=== PATIENT | male | born 1935 | race Caucasian/White ===

== ENCOUNTER 2018-10-09 10:41 | Inpatient (IN) ==
--- NOTE | 2018-10-09 10:52 | Emergency Department Note ---
Disposition Clinical Impression: Elevated troponin, NSTEMI (non-ST elevated myocardial infarction) CHF exacerbation Qualifiers: Heart failure type: unspecified Qualified Code(s): I50.9 - Heart failure, unspecified Pneumonia Qualifiers: Pneumonia type: due to unspecified organism Laterality: unspecified laterality Lung location: unspecified part of lung Qualified Code(s): J18.9 - Pneumonia, unspecified organism Sepsis Qualifiers: Sepsis type: sepsis due to unspecified organism Qualified Code(s): A41.9 - Sepsis, unspecified organism Disposition: Admitted As Inpatient Condition: Fair Time of Disposition: 12:52 SOB HPI - General Chief Complaint: ED Shortness of Breath/Dyspnea Stated Complaint: SOB Time Seen by Provider: 10/09/18 10:50 Source: patient, EMS Mode of arrival: EMS Limitations: no limitations Nursing Notes Reviewed: Yes Vital Signs Reviewed: Yes - History of Present Illness Patient is an 83-year-old male with past medical history of hypertension, hyperlipidemia, previous CAD, possible CHF. Presents today due to concern for hypoxia, cough, shortness of breath that has been present for the past 1-2 days. Patient denies any fever. He does admit to productive sputum that is new. Denies any chest pain. He denies any shortness of breath but he does appear to be mildly labored on exam. Denies any other vomiting, diarrhea, abdominal pain, dysuria, hematuria. He does admit to some mild nausea yesterday but denies any currently. According to the long term, patient does not wear any oxygen, has no history of COPD. However, he had oxygen saturations in upper 80s on room air. Patient is currently requiring 2-3 L nasal cannula oxygen to keep his saturations up. He has noticed some increased swelling of his lower extremities, possible concern for CHF exacerbation. - Related Data Home Medications Medication Instructions Recorded Confirmed Aspirin Enteric Coated [Aspirin EC] 325 mg PO DAILY 09/16/18 09/16/18 Atenolol [Tenormin] 12.5 mg PO DAILY 09/16/18 09/16/18 Atorvastatin [Lipitor] 40 mg PO HS 09/16/18 09/16/18 Glimepiride [Amaryl] 4 mg PO 0800 09/16/18 09/16/18 Levothyroxine [Synthroid] 50 mcg PO 0630 09/16/18 09/16/18 Meclizine [Antivert] 25 mg PO TID PRN 09/16/18 09/16/18 Oxybutynin Chloride [Ditropan Xl] 10 mg PO DAILY 09/16/18 09/16/18 Previous Rx's Medication Instructions Recorded Furosemide [Lasix] 20 mg PO BIDDIURETIC 30 Days #60 09/21/18 tablet Allergies Allergy/AdvReac Type Severity Reaction Status Date / Time metronidazole [From Flagyl] Allergy Anaphylaxis Verified 07/28/15 15:18 All systems ED: reviewed and negative except as stated. Constitutional: Denies: fever Cardiovascular: Denies: chest pain Respiratory: Reports: cough, dyspnea, sputum production. Denies: wheezes Gastrointestinal: Reports: nausea. Denies: abdominal pain, vomiting, diarrhea Neurological: Denies: weakness, numbness, paresthesias Past Medical History - Past Medical History Attestation: Yes The following information was validated with the patient. Source: patient Medical history: Reports: coronary artery disease, CVA, diabetes, hyperlipidemia, hypertension Surgical history: Reports: coronary bypass (CABG) Psychiatric history: Reports: no psych history - Social History Smoking Status: Never smoker Smokeless Tobacco Status: No Alcohol use: Reports: none Drug use: Reports: none Physical Exam - General Limitations: no limitations General appearance: alert - Head Head exam: atraumatic, normocephalic, normal inspection - Eye Eye exam: Present: normal appearance, PERRL, EOMI - ENT ENT exam: normal exam, normal oropharynx, mucous membranes moist - Neck Neck exam: Present: normal inspection, full ROM, trachea midline - Chest Chest inspection: Present: normal inspection, symmetric chest wall rise - Respiratory Respiratory exam: Present: other (mild to moderate crackles bilateral LL; mildly labored breathing, active cough on exam) - Cardiovascular Cardiovascular exam: Present: regular rate, normal rhythm, normal heart sounds - Abdominal Exam Abdominal exam: Present: soft, Non-Tender. Absent: tenderness, distention, guarding, rebound, rigidity - Extremities Exam Extremities exam: Present: full ROM, pedal edema (mdoerate pitting edema bilateral LE). Absent: tenderness - Neurological Exam Neurological exam: Present: alert, oriented X3. Absent: motor sensory deficit - Psychiatric Psychiatric exam: Present: normal affect, normal mood - Skin Skin exam: Present: warm, dry, intact, normal color Course Course Narrative: Physical exam shows pitting edema bilateral lower extremity is along with crackles of bilateral lower lobes. Currently concern for possible CHF exacerbation. We will obtain basic blood work, troponin, chest x-ray. If evidence of fluid overload, we will give the patient Lasix. 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 He currently denies any chest pain, denies any shortness of breath but does appear to be mildly labored. Will run this EKG by the prototype deicer assembler. ( 11:13 Cardiolgist re-paged 11:[address] King, discussed presentation, clinical findings, vitals. 11:26. Dr. King has reviewed the EKG and believes that the elevation is part of the QRS and not ST segment. He believes that this is related to the bundle branch block formation. No STEMI seen at this time. We will proceed with the above workup. 11:43 Elevated WBC, lact 2.9. CXR shows evidence of mild pulmonary edema. On personal review, it appears that patient might also have bibasilar opacity concerning for possible pneumonia. Patient has been complaining of cough and productive sputum. We will go ahead and cover with galileo miranda levaquin since he is from long term and also meets SIRS/sepsis criteria. Patient will not be given sepsis fluids bolus due to him being fluid overloaded currently and requiring Lasix. 12:41 patient had an elevated troponin level around 6. I spoke with cardiologi again. We discussed EKG findings again. On repeat examination, patient continues to deny any chest pain, shortness of breath. Dr. King recommended medical therapy with aspirin and heparin. I went over contra indications with patient. He denies any blood in his urine, GI bleeding, any previous history of any head bleeds. He is agreeable to starting heparin at this time. He does have a known small aneurysm but states that he has never had any, medications or intracranial bleeding and is still comfortable with starting heparin at this time. We will admit to the hospitalist for further care with cardiology as a consult. Chest X-Ray 10/09/18 10:51 IMPRESSION: 1. Mild congestive heart failure. Findings are new since 09/17/2018. D/ / 10/09/2018 11:41:24 Indy Shaffer MD / ed Interpreting Provider: Indy Shaffer MD Vital Signs Temperature 99.6 F 10/09/18 10:52 Pulse Rate 90 10/09/18 10:52 Respiratory Rate 22 10/09/18 10:52 Blood Pressure 140/74 10/09/18 10:52 O2 Sat by Pulse Oximetry 96 10/09/18 10:52 Temperature 99.6 F 10/09/18 10:52 Pulse Rate 90 10/09/18 10:52 Respiratory Rate 22 10/09/18 10:52 Blood Pressure 140/74 10/09/18 10:52 O2 Sat by Pulse Oximetry 95 10/09/18 11:00 Oxygen Delivery Oxygen Delivery Nasal Cannula Shortness of Breath/Dyspnea - MDM Narrative Medical decision making narrative: Physical exam shows pitting edema bilateral lower extremity is along with crackles of bilateral lower lobes. Currently concern for possible CHF exacerbation. We will obtain basic blood work, troponin, chest x-ray. If evidence of fluid overload, we will give the patient Lasix. 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 He currently denies any chest pain, denies any shortness of breath but does appear to be mildly labored. Will run this EKG by the prototype deicer assembler. ( 11:13 Cardiolgist re-paged 11:[address] King, discussed presentation, clinical findings, vitals. 11:26. Dr. King has reviewed the EKG and believes that the elevation is part of the QRS and not ST segment. He believes that this is related to the bundle branch block formation. No STEMI seen at this time. We will proceed with the above workup. 11:43 Elevated WBC, lact 2.9. CXR shows evidence of mild pulmonary edema. On personal review, it appears that patient might also have bibasilar opacity melina rning for possible pneumonia. Patient has been complaining of cough and productive sputum. We will go ahead and cover with vanc, zosyn, levaquin since he is from long term and also meets SIRS/sepsis criteria. Patient will not be given sepsis fluids bolus due to him being fluid overloaded currently and requiring Lasix. 12:41 patient had an elevated troponin level around 6. I spoke with car diologist again. We discussed EKG findings again. On repeat examination, patient continues to deny any chest pain, shortness of breath. Dr. King recommended medical therapy with aspirin and heparin. I went over contra indications with patient. He denies any blood in his urine, GI bleeding, any previous history of any head bleeds. He is agreeable to starting heparin at this time. He does have a known small aneurysm but states that he has never had any, medications or intracranial bleeding and is still comfortable with starting heparin at this time. We will admit to the hospitalist for further care with cardiology as a consult. - Medical Records Medical records reviewed: Yes I reviewed the patient's medical records. - Lab Data Lab results reviewed: Yes I reviewed the patient's lab results. Result diagrams: 10/09/18 11:09 10/09/18 11:09 Lab Results 10/09/18 10/09/18 10/09/18 Range/Units 11:09 11:09 11:09 WBC 18.9 H (4.3-11.1) K/mcL RBC 3.77 L (4.19-5.50) M/mcL Hgb 12.2 L (12.9-16.9) g/dL Hct 35.5 L (37.5-50.1) % MCV 94.2 (83.0-100.0) fL MCH 32.4 (28.0-33.3) pg MCHC 34.4 (31.6-35.5) g/dL RDW 13.9 (11.5-14.5) % Plt Count 256 (140-400) K/mcL MPV 9.3 L (9.4-12.4) fL Immature Gran % 0.8 (0-4) % Seg Neutrophils % 86.4 % Lymphocytes % 6.6 % Monocytes % 5.9 % Eosinophils % 0.1 % Basophils % 0.2 % Neutrophils # 16.3 H (1.6-8.9) K/mcL Lymphocytes # 1.3 (0.6-4.6) K/mcL Monocytes # 1.1 (0.0-1.3) K/mcL Eosinophils # 0.0 (0.0-0.6) K/mcL Basophils # 0.0 (0.0-0.2) K/mcL Nucleated RBCs/100 WBC 0.1 H (0) /100 WBC Sodium 129 L (136-145) mEq/L Potassium 3.7 (3.5-5.1) mEq/L Chloride 93 L (98-107) mEq/L Carbon Dioxide 26 (23-29) mEq/L BUN 20 (8-23) mg/dL Creatinine 1.04 (0.70-1.30) mg/dL Est GFR ( Amer) > 60 (> 60) Est GFR (Non-Af Amer) > 60 (> 60) BUN/Creatinine Ratio 19 (6-26) Glucose 178 H (70-105) mg/dL Calculated Osmolality 275 L (280-300) Lactic Acid 2.9 H (0.5-2.2) mmol/L Calcium 8.8 (8.6-10.3) mg/dL Troponin I 6.24 H* (< 0.04) ng/mL B-Natriuretic Peptide (Less than 100) pg/mL 10/09/18 10/09/18 Range/Units 11:09 12:24 WBC (4.3-11.1) K/mcL RBC (4.19-5.50) M/mcL Hgb (12.9-16.9) g/dL Hct (37.5-50.1) % MCV (83.0-100.0) fL MCH (28.0-33.3) pg MCHC (31.6-35.5) g/dL RDW (11.5-14.5) % Plt Count (140-400) K/mcL MPV (9.4-12.4) fL Immature Gran % (0-4) % Seg Neutrophils % % Lymphocytes % % Monocytes % % Eosinophils % % Basophils % % Neutrophils # (1.6-8.9) K/mcL Lymphocytes # (0.6-4.6) K/mcL Monocytes # (0.0-1.3) K/mcL Eosinophils # (0.0-0.6) K/mcL Basophils # (0.0-0.2) K/mcL Nucleated RBCs/100 WBC (0) /100 WBC Sodium (136-145) mEq/L Potassium (3.5-5.1) mEq/L Chloride (98-107) mEq/L Carbon Dioxide (23-29) mEq/L BUN (8-23) mg/dL Creatinine (0.70-1.30) mg/dL Est GFR ( Amer) (> 60) Est GFR (Non-Af Amer) (> 60) BUN/Creatinine Ratio (6-26) Glucose (70-105) mg/dL Calculated Osmolality (280-300) Lactic Acid 2.8 H (0.5-2.2) mmol/L Calcium (8.6-10.3) mg/dL Troponin I (< 0.04) ng/mL B-Natriuretic Peptide 152 H (Less than 100) pg/mL - Radiology Data Radiology results reviewed: Yes I reviewed the patient's radiology results. - EKG Data EKG attestation: Yes I reviewed and interpreted this EKG. EKG results narrative: Sinus rhythm. Rate 89. CA 139. QRS 164. QTC 469. Normal axis. 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 Critical Care Time Critical Care Time: Yes Total Critical Care Time: 35 Attestation: Critical care time 35 minutes managing CHF, and elevated troponin, and possible institutionally acquired pneumonia. S.B.A.R. - S.B.A.RAlice Situation: Demographics, MOA Background: Presenting Complaint, Relevant PMH, Meds, & Allergies Assessment: Vital Signs, Course and respsone to treatment, Exam Concerns, Patient/Family Expectation, Pertinant Lab Results Recommendation: Barrier(s) to disposition, Recommendation based on pending studies, treatments, or consults S.B.A.RAlice Report Given to: Dr. Jackie Briseno Repor Time: 12:52 Attestation Statement - Attestation Attestation: Patient was seen with resident physician. I reviewed the history, physical, assessment and plan, and agree with the findings. I also personally evaluated this patient and had [id number] time with this patient. 83-year-old male presents from long term via EMS to the emergency department with shortness of breath and increased confusion. Patient says he feels okay today he sat had shortness of breath in the past but has no chest pain or shortness of breath today. residential however found a pulse ox that was below 90 on room air. And also said he was more confused than usual which prompted his transport. Patient denies other complaints at this time. Review systems as above remainder negative. Physical exam vital signs were stable. ENT is unremarkable. Heart regular rhythm and rate. Lungs are clear. Abdomen is soft and nontender. Extremities swelling of the lower extremities bilaterally and symmetrically. He has 2+ edema. Neurologically he follows commands and is otherwise alert. His difficult to understand his speech as he has no teeth. Skin no rashes. Psych normal from what we can ascertain. ED course. We will do workup for cardiopulmonary causes of shortness of breath. I think this is likely a CHF issue. But we will also exclude pneumonia and influenza. Patient does appear to be fluid overloaded. We will likely treat that as well. Disposition will be admission to the hospital service for further evaluation and treatment. Multiple abnormalities were noted during the workup. Including some EKG changes that were seen on his EKG when compared with prior. These were discussed with interventional cardiology. Additionally once a troponin came back positive we recontacted cardiology to ensure that there is no further intervention they wanted other than heparin and aspirin. Patient was started on both of these per their continued recommendation and we contacted the hospitalist service to arrange for admission. They agreed to accept the patient. I agree with the resident physician assessment and plan. Critical care time 35 minutes managing patient's multiple medical problems including CHF probable pneumonia and an NSTEMI.
[2018-10-09 11:23] LABS: Basophils % 0.2 %; Eosinophils % 0.1 %; Hematocrit 35.5 % (37.5-50.1); Hemoglobin 12.2 g/dL (12.9-16.9); Immature Granulocytes % 0.8 % (0-4); Lymphocytes # 1.3 K/mcL (0.6-4.6); Lymphocytes % 6.6 %; Mean Corpuscular HGB Conc 34.4 g/dL (31.6-35.5); Mean Corpuscular Hemoglobin 32.4 pg (28.0-33.3); Mean Corpuscular Volume 94.2 fL (83.0-100.0); Mean Platelet Volume 9.3 fL (9.4-12.4); Monocytes # 1.1 K/mcL (0.0-1.3); Monocytes % 5.9 %; Neutrophils # 16.3 K/mcL (1.6-8.9); Nucleated Red Blood Cells 0.1 /100 WBC (0); Platelet Count 256 K/mcL (140-400); Red Blood Count 3.77 M/mcL (4.19-5.50); Red Cell Distribution Width 13.9 % (11.5-14.5); Segmented Neutrophils % 86.4 %
[2018-10-09 11:45] LABS: BUN/Creatinine Ratio 19 (6-26); Blood Urea Nitrogen 20 mg/dL (8-23); Calcium 8.8 mg/dL (8.6-10.3); Carbon Dioxide 26 mEq/L (23-29); Chloride 93 mEq/L (98-107); Glucose 178 mg/dL (70-105); Osmolality,Calculated 275 (280-300); Potassium 3.7 mEq/L (3.5-5.1); Sodium 129 mEq/L (136-145); eGFR For Non-African Americans > 60 (> 60)
[2018-10-09] MEDS ORDERED: Furosemide 40 MG/4 ML VIAL IVP ONE (11:46)
[2018-10-09] MEDS ORDERED: Piperacillin/Tazobactam 3.375 GM in 0.9 % Sodium Chloride Mini Bag 100 ML IVPB ONE (11:46)
[2018-10-09] MEDS ORDERED: Levofloxacin 500 MG/100 ML 500 MG/100 ML BAG IVPB ONE (11:46)
[2018-10-09 11:55] LABS: Troponin I 6.24 ng/mL (< 0.04)
[2018-10-09] MEDS ORDERED: *HR* Heparin 5,000 UNIT/ML VIAL IVP ONE (12:32)
[2018-10-09] MEDS ORDERED: *HR* Heparin 5,000 UNIT/ML VIAL IVP PRN ×2 (12:32)
[2018-10-09] MEDS ORDERED: Aspirin 325 MG TABLET PO ONE (12:50)
[2018-10-09] MEDS: Heparin 25,000 UNIT/250 ML D5W 25,000 UNIT/250 ML IV.SOLN IVC SCH (12:58)
[2018-10-09 13:32] LABS: Hematocrit 34.8 % (37.5-50.1); Mean Corpuscular HGB Conc 34.5 g/dL (31.6-35.5); Mean Corpuscular Hemoglobin 32.5 pg (28.0-33.3); Mean Corpuscular Volume 94.3 fL (83.0-100.0); Mean Platelet Volume 9.5 fL (9.4-12.4); Platelet Count 257 K/mcL (140-400); Red Blood Count 3.69 M/mcL (4.19-5.50); Red Cell Distribution Width 13.8 % (11.5-14.5)
[2018-10-09 13:40] LABS: INR 1.4; Prothrombin Time 16.3 Seconds (9.4-12.1)
[2018-10-09] MEDS ORDERED: Naloxone 0.4 MG/ML INJ IVP PRN (14:36)
[2018-10-09] MEDS ORDERED: D5% in Water 1,000 ML IVC PRN (14:40)
[2018-10-09] MEDS ORDERED: *HR* Dextrose 50 % in Water (Syg) 50 ML SYRINGE IVP PRN (14:40)
[2018-10-09] MEDS ORDERED: Dextrose Gel 15 GM/37.5 ML TUBE PO PRN ×2 (14:40)
[2018-10-09] MEDS ORDERED: Ipratropium/Albuterol Neb 3 ML IH PRN (14:43)
--- NOTE | 2018-10-09 14:52 | Internal Med History&Physical ---
Date of Encounter: 10/09/18 Time of Encounter: 13:30 Internal Medicine - H&P: HPI Chief complaint: Weakness Admitted From: Long-term Nursing Facility Plans for Post Hospital Care: Transfer [facility] History of present illness: Mr. Douglas is a 83 year old male presented to ER for weakness. Past medical history is significant for DM, hypertension, CAD S/P CABG, history of CVA, hypothyroidism, diastolic CHF, prostate cancer, melanoma. Patient [facility]. Patient feels weak in last several days and fell twice in 3 days ago and today. Patient denies loss of consciousness or head trauma. Patient feels sick in last several days with nonproductive cough and chills and subjective fever. Patient denies runny nose, sore throat, nausea, vomiting, or diarrhea. Patient has mild dysuria and burning on urination. In the emergency room, patient was found hypoxia, need 3 L oxygen to maintain oxygen saturation. Patient denies chest pain or shortness of breath. Chest x-ray shows increased pulmonary edema. Patient was also found elevated troponin to 6.0 with leukocytosis. Patient was admitted for possible pneumonia, CHF exacerbation, and elevated troponin. Past Med Surg Social Fam HX - Past Medical History Medical history: coronary artery disease, CVA, diabetes, hyperlipidemia, hypertension Additional medical history: prostate cancer w/ radiation, melanoma, retina surg viktoriya, CABG x3, strokes x2 Psychiatric history: no psych history - Past Surgical History Surgical History: coronary bypass (CABG) Additional surgical history: triple bypass, prostate cancer, 2 melenomas taken off back, 4 eye eye procedures, hernia repair, bladder surgery - Social History Smoking Status: Never smoker Smokeless Tobacco Status: No Alcohol use: none Drug use: none - Family History Mother Living Status: Hx Family Cardiac Disorders: Yes Father Living Status: Hx Family Cardiac Disorders: Yes Internal Medicine - H&P: Meds Aspirin Enteric Coated [Aspirin EC] 325 mg PO DAILY 09/16/18 [History] Atenolol [Tenormin] 12.5 mg PO DAILY 09/16/18 [History] Glimepiride [Amaryl] 4 mg PO 0800 09/16/18 [History] Levothyroxine [Synthroid] 50 mcg PO 0630 09/16/18 [History] Meclizine [Antivert] 25 mg PO TID PRN 09/16/18 [History] Oxybutynin Chloride [Ditropan Xl] 10 mg PO DAILY 09/16/18 [History] Furosemide [Lasix] 20 mg PO BIDDIURETIC 30 Days #60 tablet 09/21/18 [Rx] Meloxicam 15 mg PO DAILY 10/09/18 [History] Rosuvastatin [Crestor] 20 mg PO HS 10/09/18 [History] 3 Allergy/AdvReac Type Severity Reaction Status Date / Time metronidazole [From Flagyl] Allergy Anaphylaxis Verified 07/28/15 15:18 All Systems PM: A 10-system review of systems was performed and is negative for pertinent findings except as documented above in the HPI. - Constitutional Vitals: Temp Pulse Resp BP Pulse Ox 99.6 F 90 22 140/74 95 10/09/18 10:52 10/09/18 10:52 10/09/18 10:52 10/09/18 10:52 10/09/18 11:00 Exam: Pt is AAO x 3, in NAD HEENT: NC/AT, PERRL Neck: Supple, no JVD, no LAD Lungs: Coarse breath sound bilaterally, with wheezing/rhonchi on bilateral lung base Heart: S1S2, RRR Abd: Soft, nontender, BS present Ext: ROM wnl, no pedal edema Neuro: No focal deficit Internal Med - H&P Results - Labs CBC & Chem 7: 10/09/18 13:08 10/09/18 11:09 Labs: Short CBC 10/09/18 10/09/18 Range/Units 11:09 13:08 WBC 18.9 H 17.9 H (4.3-11.1) K/mcL Hgb 12.2 L 12.0 L (12.9-16.9) g/dL Hct 35.5 L 34.8 L (37.5-50.1) % Plt Count 256 257 (140-400) K/mcL Neutrophils # 16.3 H (1.6-8.9) K/mcL BMP 10/09/18 11:09 Sodium 129 L Potassium 3.7 Chloride 93 L Carbon Dioxide 26 BUN 20 Creatinine 1.04 Glucose 178 H Calcium 8.8 Cardiac Enzymes 10/09/18 Range/Units 11:09 Troponin I 6.24 H* (< 0.04) ng/mL - Impressions ITS Impressions Chest X-Ray 10/09/18 10:51 IMPRESSION: 1. Mild congestive heart failure. Findings are new since 09/17/2018. D/ / 10/09/2018 11:41:24 Indy Shaffer MD / ed Interpreting Provider: Indy Shaffer MD - Assessment and Plan (1) Congestive heart failure Current Visit: No Status: Acute Assessment and plan: Patient has a history of diastolic CHF on by mouth Lasix. Patient has increased oxygen demand and chest x-ray shows increased pulmonary edema. BNP 152. - Consider mild fluid overload on diastolic CHF. Will place patient on strict I and O, cardiac diet, Lasix switched to IV 40 mg daily. - Closer follow-up fluid status Qualifiers: Heart failure type: diastolic Heart failure chronicity: acute on chronic Qualified Code(s): I50.33 - Acute on chronic diastolic (congestive) heart failure (2) Elevated troponin level Current Visit: Yes Status: Acute Assessment and plan: Troponin 6.24, etiology is undetermined. Patient has a history of CAD S/P CABG. - EKG has been reviewed by cardiology, not consider STEMI - Patient denies chest pain or shortness of breath - Continue heparin drip at this point - Continue aspirin, beta gonzales, and statin. - Continuous Cardiac monitoring, track 3 sets of troponin - Cardiology consul was called by emergency room (3) DVT prophylaxis Current Visit: No Status: Acute Assessment and plan: On heparin drip (4) Hypertension Current Visit: No Status: Chronic Assessment and plan: Continue home medications. Closely monitor BP Qualifiers: Hypertension type: essential hypertension Qualified Code(s): I10 - Essential (primary) hypertension (5) Diabetes mellitus Current Visit: No Status: Chronic Assessment and plan: Patient is not on insulin at home. 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 Chest Xray shows increased opacity. Suspect early pneumonia or CHF exacerbation. - Continue treat underlying disease - Continue supportive treatment with oxygen, continuous pulse oximetry monitoring (7) Pneumonia Current Visit: Yes Status: Acute Assessment and plan: Patient has increased cough, subjective fever, leukocytosis, increased opacity on chest x-ray. Patient has generalized weakness. Highly suspect pneumonia. - Place patient on Vanco, Zosyn, azithromycin for HCAP - Legionella and Strep Pneumo Ags - Respiratory viral panel to rule out viral infection - MRSA screen for antibiotic de-escalation - Patient has no wheezing, will place him on bronchodilator scheduled and when necessary. Qualifiers: Pneumonia type: due to unspecified organism Laterality: bilateral Lung location: lower lobe of lung Qualified Code(s): J18.1 - Lobar pneumonia, unspecified organism (8) Sepsis Current Visit: Yes Status: Acute Assessment and plan: Patient to meet sepsis criteria with leukocytosis and hypoxia - Antibiotics started in the emergency room. - No IV fluid as patient has signs of fluid overload. - Mild elevated lactate is also possibly due to hypoxia. We will follow lactate acid level in 6 hours - Follow up blood culture, send UA to rule out UTI. Qualifiers: Sepsis type: sepsis due to unspecified organism Qualified Code(s): A41.9 - Sepsis, unspecified organism - Time Spent With Patient Total time spent is greater than 50% in coordination of care (as documented) at patient's floor/unit and/or counseling patient: 40 minutes Greater than 35 minutes
[2018-10-09 15:32] LABS: Bilirubin,Urine Negative (Negative); Blood,Urine Negative (Negative); Clarity,Urine Clear (Clear); Color,Urine Yellow (Yellow); Glucose,Urine (UA) Normal (Normal); Ketones,Urine Negative (Negative); Leukocyte Esterase,Urine Negative (Negative); Nitrite,Urine Negative (Negative); Protein,Urine Trace mg/dL (Neg-Trace); Specific Gravity,Urine 1.011 (1.010-1.025); Urobilinogen,Urine Normal (Normal)
[2018-10-09] MEDS: Ipratropium/Albuterol Neb 3 ML IH SCH ×2 (15:55→21:27)
[2018-10-09] MEDS: Piperacillin/Tazobactam 3.375 GM in 0.9 % Sodium Chloride Mini Bag 100 ML IVPB SCH ×2 (16:20→23:53)
[2018-10-09] MEDS: Insulin LISPRO 300 UNITS/3 ML VIAL SQ SCH ×2 (16:26→22:12)
[2018-10-09 18:15] LABS: Adenovirus Not Detected (Not Detect); Bordetella Pertussis Not Detected (Not Detect); Chlamydophila pneumoniae Not Detected (Not Detect); Coronavirus 229E Not Detected (Not Detect); Coronavirus HKU1 Not Detected (Not Detect); Coronavirus NL63 Not Detected (Not Detect); Coronavirus OC43 Not Detected (Not Detect); Human Metapneumovirus Not Detected (Not Detect); Human Rhinovirus/Enterovirus Not Detected (Not Detect); Influenza A Subtype 2009 H1 Not Detected (Not Detect); Influenza A Untypeable Not Detected (Not Detect); Influenza B Not Detected (Not Detect); Mycoplasma pneumoniae Not Detected (Not Detect); Parainfluenza Virus 1 Not Detected (Not Detect); Parainfluenza Virus 2 Not Detected (Not Detect); Parainfluenza Virus 3 Not Detected (Not Detect); Parainfluenza Virus 4 Not Detected (Not Detect); Respiratory Syncytial Virus Not Detected (Not Detect)
[2018-10-10] MEDS: Ipratropium/Albuterol Neb 3 ML IH SCH ×4 (03:44→22:53)
[2018-10-10 04:19] LABS: Basophils % 0.2 %; Eosinophils # 0.2 K/mcL (0.0-0.6); Eosinophils % 1.1 %; Hematocrit 33.1 % (37.5-50.1); Hemoglobin 12.1 g/dL (12.9-16.9); Immature Granulocytes % 0.8 % (0-4); Lymphocytes # 1.3 K/mcL (0.6-4.6); Lymphocytes % 8.1 %; Mean Corpuscular HGB Conc 36.6 g/dL (31.6-35.5); Mean Corpuscular Hemoglobin 33.8 pg (28.0-33.3); Mean Corpuscular Volume 92.5 fL (83.0-100.0); Mean Platelet Volume 9.6 fL (9.4-12.4); Monocytes # 0.6 K/mcL (0.0-1.3); Monocytes % 3.6 %; Neutrophils # 13.7 K/mcL (1.6-8.9); Platelet Count 264 K/mcL (140-400); Red Blood Count 3.58 M/mcL (4.19-5.50); Red Cell Distribution Width 14.2 % (11.5-14.5); Segmented Neutrophils % 86.2 %
[2018-10-10 04:36] LABS: BUN/Creatinine Ratio 20 (6-26); Blood Urea Nitrogen 21 mg/dL (8-23); Calcium 8.4 mg/dL (8.6-10.3); Carbon Dioxide 26 mEq/L (23-29); Chloride 93 mEq/L (98-107); Glucose 233 mg/dL (70-105); Magnesium 1.7 mg/dL (1.6-2.6); Osmolality,Calculated 278 (280-300); Potassium 3.4 mEq/L (3.5-5.1); Sodium 129 mEq/L (136-145); eGFR For Non-African Americans > 60 (> 60)
[2018-10-10] MEDS: Heparin 25,000 UNIT/250 ML D5W 25,000 UNIT/250 ML IV.SOLN IVC SCH (04:55)
--- NOTE | 2018-10-10 08:01 | Cardiology Consult Note ---
<Juan Pablo Murray R - Last Filed: 10/10/18 08:02> Date of Encounter: 10/10/18 Time of Encounter: 08:01 Assessment and Plan (1) NSTEMI (non-ST elevated myocardial infarction) Current Visit: Yes Status: Acute Pt presented for weakness/falls, feeling ill--chills, subjective fevers. Troponins 6.24, 11.51, 7.01, downtrending. He denies chest pain or dyspnea. ECG reviewed--known RBBB, ST changes in anterolateral leads are more pronounced compared to previous. TTE 09/07/18 LVEF 65%. Normal RV structure and function. Moderately thickened aortic valve leaflets. No by Doppler. Mild MR and TR. Mild phtn. Hx of CAD and CABG in 2007. Recommended [facility] given NSTEMI. R/B/A discussed. Pt declines. He wishes to pursue medical management only. Continue heparin gtt x 24-48 hours. Continue ASA, Statin, BB. Will add Plavix 75mg daily. Repeat TTE. Continue to follow. Recommend palliative consult to discuss code status change since pt does not want to be aggressive. (2) Diastolic CHF Current Visit: Yes Status: Acute Hx of diastolic CHF. Pt denies worsening dyspnea, although he was found to be hypoxic in ED. TTE 08/2018 EF 65%. BNP 152. CXR mild CHF. Mild BLE edema on exam. On IV Lasix 40mg daily. Recommend strict I/Os, Na and fluid restriction, daily weights. Qualifiers: Heart failure chronicity: chronic Qualified Code(s): I50.32 - Chronic diastolic (congestive) heart failure (3) CAD (coronary artery disease) Current Visit: No Status: Chronic Hx of CABG. Continue ASA, Statin, BB. Qualifiers: Coronary Disease-Associated Artery/Lesion type: bypass graft [place] vs. transplanted heart: [place] heart Associated angina: without angina Qualified Code(s): I25.810 - Atherosclerosis of coronary artery bypass graft(s) without angina pectoris Discussion w patient/family: The assessment and plan as outlined above was discussed with the patient and/or family members who expressed understanding and agreement. All questions were answered. Thank you for involving us in the care of your patient. Please call with any questions. I will discuss all the above with Dr. Palencia and make changes as necessary. History of Present Illness Consult date: 10/10/18 Consult reason: NSTEMI Chief complaint: weakness/falls History of present illness: Mr. Douglas is a 83 year old male with a relevant past medical history of CAD s/p CABG, HTN, HLD, CVA, PVD, prostate cancer, hypothyroidism, diastolic CHF, who presented to [facility] with complaints of weakness in last several days and two falls. Patient denies loss of consciousness or head trauma. Patient feels ill with nonproductive cough and chills and subjective fever. In the emergency room, patient was found to be hypoxic, requiring 3 L oxygen to maintain saturation. Patient denies chest pain or shortness of breath. Chest x-ray shows increased pu lmonary edema. Troponins 6.24, 11.51, 7.01. Cardiology consulted for further recs. Prior CV testing: TTE 09/07/18: LVEF 65%. Indeterminate diastolic function. Normal RV structure and function. Moderately thickened aortic valve leaflets. No by Doppler. Mild MR and TR. Mild phtn. Past Med Surg Social Fam HX - Past Medical History Medical history: coronary artery disease, CVA, diabetes, hyperlipidemia, hypertension Additional medical history: prostate cancer w/ radiation, melanoma, retina surgery, CABG x3, strokes x2 Psychiatric history: no psych history - Past Surgical History Surgical History: coronary bypass (CABG) Additional surgical history: triple bypass, prostate cancer, 2 melenomas taken off back, 4 eye eye procedures, hernia repair, bladder surgery - Social History Smoking Status: Never smoker Smokeless Tobacco Status: No Alcohol use: none Drug use: none - Family History Mother Living Status: Hx Family Cardiac Disorders: Yes Father Living Status: Hx Family Cardiac Disorders: Yes Medications and Allergies Aspirin Enteric Coated [Aspirin EC] 325 mg PO DAILY 09/16/18 [History] Atenolol [Tenormin] 12.5 mg PO DAILY 09/16/18 [History] Glimepiride [Amaryl] 4 mg PO 0800 09/16/18 [History] Levothyroxine [Synthroid] 50 mcg PO 0630 09/16/18 [History] Meclizine [Antivert] 25 mg PO TID PRN 09/16/18 [History] Oxybutynin Chloride [Ditropan Xl] 10 mg PO DAILY 09/16/18 [History] Furosemide [Lasix] 20 mg PO BIDDIURETIC 30 Days #60 tablet 09/21/18 [Rx] Meloxicam 15 mg PO DAILY 10/09/18 [History] Rosuvastatin [Crestor] 20 mg PO HS 10/09/18 [History] Allergy/AdvReac Type Severity Reaction Status Date / Time metronidazole [From Flagyl] Allergy Anaphylaxis Verified 07/28/15 15:18 All Systems Review: The remainder of the systems were reviewed and are negative - Constitutional Constitutional: chills, fever(s), frequent falls, weakness - Cardiovascular Cardiovascular: as per HPI - Respiratory Respiratory: cough Physical Examination Vital Signs, Last 4 Hours Temp Pulse Resp BP Pulse Ox 10/10/18 06:45 99.9 F H 104 20 121/80 97 Vital Signs Temp Pulse Resp BP Pulse Ox 10/10/18 06:45 99.9 F H 104 20 121/80 97 10/10/18 03:45 14 96 10/10/18 03:30 97.9 F 98 20 126/69 95 10/09/18 23:32 99.6 F 98 24 149/47 95 10/09/18 21:32 14 97 10/09/18 20:30 97 10/09/18 19:34 98.7 F 85 20 130/81 94 10/09/18 16:36 93 10/09/18 16:32 93 10/09/18 16:25 98.8 F 85 18 119/67 94 10/09/18 14:48 20 118/65 10/09/18 11:00 95 10/09/18 10:52 99.6 F 90 22 140/74 96 Intake and Output 10/09/18 10/10/18 10/10/18 23:59 07:59 15:59 Intake Total 434 / 434 250 / 250 Output Total 200 / 200 250 / 250 Balance 234 / 234 0 / 0 Intake: IV Fluids 434 / 434 250 / 250 Heparin 25,000 UNIT/250 ML D5W 250 / 250 25,000 unit In 250 ml @ 14 UNIT /KG/HR 15.582 mls/hr IVC . Q16H3M [facility] Rx#:[id number] Zosyn 3.375 GM In 0.9 % Sodium 100 / 100 Chloride (Mini-Bag +) 100 ML @ 25 mls/hr IVPB Q8HR [facility] Rx#: [id number] Vancocin 1,750 MG In 0.9 % 334 / 334 Sodium Chloride 500 ML @ 334. 014 mls/hr IVPB Q12H [facility] Rx#: [id number] Output: Urine 200 / 200 250 / 250 Other: Stool Size Smear Stool Color Brown # Voids 1 # Urine Diapers 1 Weight 107.1 kg Blood Glucose* 169 235 Patient Weight 10/10/18 23:59 Weight 107.1 kg General: Conversant, No Apparent Distress HEENT: Atraumatic, Normocephaly, Mucus Membranes Moist Neck: No JVD, Normal carotid pulses Cardiac: Reg Rate and Rhythm, Normal S1 and S2, No Murmur Lungs: Other (diminished) Neuro: Alert and responsive, No focal deficits noted Abdomen: Soft, Non-Tender Skin: No rashes noted on visualized skin Musculoskeletal: No Chest Wall Tenderness Extremities: Other (mild BLE edema) Results 10/10/18 04:06 10/10/18 04:06 Lab Results 10/09/18 10/09/18 10/09/18 11:09 11:09 11:09 WBC 18.9 H Hgb 12.2 L Hct 35.5 L Plt Count 256 INR Sodium 129 L Potassium 3.7 Chloride 93 L Carbon Dioxide 26 BUN 20 Creatinine 1.04 Glucose 178 H Calcium 8.8 Magnesium Troponin I 6.24 H* B-Natriuretic Peptide 152 H 10/09/18 10/09/18 10/09/18 13:08 13:08 16:56 WBC 17.9 H Hgb 12.0 L Hct 34.8 L Plt Count 257 INR 1.4 Sodium Potassium Chloride Carbon Dioxide BUN Creatinine Glucose Calcium Magnesium Troponin I 11.51 H* B-Natriuretic Peptide 10/09/18 10/10/18 10/10/18 23:10 04:06 04:06 WBC 15.9 H Hgb 12.1 L Hct 33.1 L Plt Count 264 INR Sodium 129 L Potassium 3.4 L Chloride 93 L Carbon Dioxide 26 BUN 21 Creatinine 1.03 Glucose 233 H Calcium 8.4 L Magnesium 1.7 Troponin I 7.01 H* B-Natriuretic Peptide Short CBC 10/10/18 10/09/18 10/09/18 Range/Units 04:06 13:08 11:09 WBC 15.9 H 17.9 H 18.9 H (4.3-11.1) K/mcL Hgb 12.1 L 12.0 L 12.2 L (12.9-16.9) g/dL Hct 33.1 L 34.8 L 35.5 L (37.5-50.1) % Plt Count 264 257 256 (140-400) K/mcL Neutrophils # 13.7 H 16.3 H (1.6-8.9) K/mcL BMP 10/10/18 10/09/18 Range/Units 04:06 11:09 Sodium 129 L 129 L (136-145) mEq/L Potassium 3.4 L 3.7 (3.5-5.1) mEq/L Chloride 93 L 93 L (98-107) mEq/L Carbon Dioxide 26 26 (23-29) mEq/L BUN 21 20 (8-23) mg/dL Creatinine 1.03 1.04 (0.70-1.30) mg/dL Glucose 233 H 178 H (70-105) mg/dL Calcium 8.4 L 8.8 (8.6-10.3) mg/dL Cardiac Enzymes 10/09/18 10/09/18 10/09/18 Range/Units 23:10 16:56 11:09 Troponin I 7.01 H* 11.51 H* 6.24 H* (< 0.04) ng/mL Urine 10/09/18 Range/Units 15:17 Urine Color Yellow (Yellow) Urine Clarity Clear (Clear) Urine pH 6.0 (5.0-8.0) pH Units Ur Specific [place] 1.011 (1.010-1.025) Urine Protein Trace (Neg-Trace) mg/dL Urine Glucose (UA) Normal (Normal) mg/dL Impressions Chest X-Ray 10/09/18 10:51 IMPRESSION: 1. Mild congestive heart failure. Findings are new since 09/17/2018. D/ / 10/09/2018 11:41:24 Indy Shaffer MD / ed Interpreting Provider: Indy Shaffer MD Active Medications Acetaminophen (Tylenol) 650 mg PO Q6HR PRN PRN Reason: Mild Pain/Fever Stop: 04/10/19 14:37 Albuterol/Ipratropium (Duoneb) 3 ml IH [id number] [facility] Stop: 04/10/19 16:01 Last Admin: 10/10/18 03:44 Dose: 3 ml Albuterol/Ipratropium (Duoneb) 3 ml IH [id number] PRN PRN Reason: Shortness Of Breath/Wheezing Stop: 04/10/19 14:44 Aspirin (Aspirin Ec) 81 mg PO DAILY [facility] Stop: 04/11/19 09:01 Atenolol (Tenormin) 12.5 mg PO DAILY [facility] Stop: 04/11/19 09:01 Dextrose/Water (Dextrose 50% (Syg)) 25 ml IVP AD PRN PRN Reason: Hypoglycemia Stop: 04/10/19 14:41 Furosemide (Lasix) 40 mg IVP DAILY [facility] Stop: 04/11/19 09:01 Glucagon (Glucagen) 1 mg IM ONCE PRN PRN Reason: Hypoglycemia Stop: 04/10/19 14:41 Glucose (Gluctose) 15 gm PO ONCE PRN PRN Reason: Hypoglycemia Stop: 04/10/19 14:41 Glucose (Gluctose) 30 gm PO ONCE PRN PRN Reason: Hypoglycemia Stop: 04/10/19 14:41 Heparin Sodium (Porcine) (Heparin) 7,800 unit 70 unit/kg (7800 unit) IVP Q6HR PRN PRN Reason: SEE COMMENTS Stop: 04/10/19 12:33 Heparin Sodium (Porcine) (Heparin) 3,900 unit 35 unit/kg (3900 unit) IVP Q6H PRN PRN Reason: SEE COMMENTS Stop: 04/10/19 12:33 Heparin Sodium/Dextrose (Heparin 25,000 Unit/250 Ml D5w) 25,000 unit in 250 mls @ 15.582 mls/hr IVC .Q16H3M [facility]; Protocol Stop: 04/10/19 12:46 Last Admin: 10/10/18 04:55 Dose: 14 unit/kg/hr, 15.6 mls/hr Dextrose (Dextrose 5%) 1,000 mls @ 100 mls/hr IVC .Q10H PRN PRN Reason: HYPOGLYCEMIA Stop: 04/10/19 14:41 Cefepime HCl 2,000 mg/ Sterile (Water) 20 mls @ 300 mls/hr IVP Q8HR [facility] Stop: 04/11/19 16:01 Insulin Human Lispro (Humalog) 0 units SQ HS [facility]; Protocol Stop: 04/10/19 21:01 Last Admin: 10/09/18 22:12 Dose: Not Given Insulin Human Lispro (Humalog) 0 units SQ TIDAC [facility]; Protocol Stop: 04/10/19 16:31 Last Admin: 10/09/18 16:26 Dose: Not Given Levothyroxine Sodium (Synthroid) 50 mcg PO 0630 [facility] Stop: 04/11/19 06:31 Last Admin: 10/10/18 06:04 Dose: 50 mcg Meclizine HCl (Antivert) 25 mg PO TID PRN PRN Reason: DIZZINESS Stop: 04/10/19 14:47 Naloxone HCl (Narcan) 0.4 mg IVP Q2M PRN PRN Reason: SEE COMMENTS Stop: 04/10/19 14:37 Oxybutynin Chloride (Ditropan) 5 mg PO BID [facility] Stop: 04/11/19 09:01 Rosuvastatin Calcium (Crestor) [address] [facility] Stop: 04/10/19 21:01 Last Admin: 10/09/18 20:41 Dose: 20 mg - Imaging and Cardiology Echo: report reviewed - EKG Interpretation EKG results cardiology: personally reviewed (SR, anterolateral ischemia), right bundle branch block, other (12 hr tele AVG HR 98, SR) Consult Discharge Plan - Plan Referrals: Corky Estrada MD [Primary Care Provider] - <Kimberly Palencia - Last Filed: 10/10/18 10:43> Date of Encounter: 10/10/18 - Attending Attestation I examined this patient and my medical decision-making was reviewed with the Resident Physician. I agree with the documented findings, disposition and treatment plan as described. Mr. Douglas presents with weakness and feeling ill. Troponins noted to be elevated, peak 11.5. ECGs reviewed concerning for ACS. At the bedside the patient is tangential but alert, conversant and oriented x3. Described to the patient that he presented with acute UT and that we would recommend a LHC. The patient expressed understanding of our conversation. However, he said that he had a stroke complicating his prior cath and therefore he would not want to do another cath. He told me this 3 times during our conversation. Therefore, we will avoid aggressive interventions at his request. Recommend medical management. Heparin for 48 hours. Asa/plavix have been added. Continue statin. Echo pending to help guide care. Assessment and Plan Discussion w patient/family: The assessment and plan as outlined above was discussed with the patient and/or family members who expressed understanding and agreement. All questions were answered. Thank you for involving us in the care of your patient. Please call with any questions. History of Present Illness History of present illness: Mr. Douglas is a 83 year old male All Systems Review: The remainder of the systems were reviewed and are negative Physical Examination Vital Signs, Last 4 Hours Temp Pulse Resp BP Pulse Ox 10/10/18 08:40 97 10/10/18 06:45 99.9 F H 104 20 121/80 97 Results 10/10/18 04:06 10/10/18 04:06 Lab Results 10/09/18 10/09/18 10/09/18 11:09 11:09 11:09 WBC 18.9 H Hgb 12.2 L Hct 35.5 L Plt Count 256 INR Sodium 129 L Potassium 3.7 Chloride 93 L Carbon Dioxide 26 BUN 20 Creatinine 1.04 Glucose 178 H Calcium 8.8 Magnesium Troponin I 6.24 H* B-Natriuretic Peptide 152 H 10/09/18 10/09/18 10/09/18 13:08 13:08 16:56 WBC 17.9 H Hgb 12.0 L Hct 34.8 L Plt Count 257 INR 1.4 Sodium Potassium Chloride Carbon Dioxide BUN Creatinine Glucose Calcium Magnesium Troponin I 11.51 H* B-Natriuretic Peptide 10/09/18 10/10/18 10/10/18 23:10 04:06 04:06 WBC 15.9 H Hgb 12.1 L Hct 33.1 L Plt Count 264 INR Sodium 129 L Potassium 3.4 L Chloride 93 L Carbon Dioxide 26 BUN 21 Creatinine 1.03 Glucose 233 H Calcium 8.4 L Magnesium 1.7 Troponin I 7.01 H* B-Natriuretic Peptide
[2018-10-10] MEDS: Cefepime HCl 2,000 MG in Water for inj. (sterile) 20 ML 20 ML IVP SCH ×2 (08:32→17:09)
[2018-10-10] MEDS: Insulin LISPRO 300 UNITS/3 ML VIAL SQ SCH ×4 (08:32→21:23)
[2018-10-10] MEDS: Aspirin Enteric Coated 81 MG Tablet PO SCH (08:34)
[2018-10-10] MEDS ORDERED: Furosemide 40 MG/4 ML VIAL IVP SCH (09:00)
--- NOTE | 2018-10-10 11:10 | Internal Med Progress Note ---
Hospitalist Progress Note - Encounter Date of Encounter: 10/10/18 Time of Encounter: 09:00 - Subjective Interval History: Patient still has a cough, which is nonproductive. Denies chest pain or shortness of breath. However, still needs oxygen to maintain oxygen saturation. Patient denies using oxygen and home. Has low fever 99.9. Patient has difficu lty urination this morning, Maurice catheter placed and 600 mL urine was drained. - Exam Vitals: Temp Pulse Resp BP Pulse Ox 99.9 F H 104 20 121/80 97 10/10/18 06:45 10/10/18 06:45 10/10/18 06:45 10/10/18 06:45 10/10/18 08:40 Exam: Pt is AAO x 3, in NAD HEENT: NC/AT, PERRL Neck: Supple, no JVD, no LAD Lungs: Coarse breath sound bilaterally, with scattered wheezing on bilateral lung base Heart: S1S2, RRR Abd: Soft, nontender, BS present Ext: ROM wnl, no pedal edema Neuro: No focal deficit - Assessment and Plan (1) Congestive heart failure Current Visit: No Status: Acute Assessment and Plan: Patient has a history of diastolic CHF on by mouth Lasix. Patient has increased oxygen demand and chest x-ray shows increased pulmonary edema. BNP 152. - Consider mild fluid overload on diastolic CHF. Will place patient on strict I and O, cardiac diet, Lasix switched to IV 40 mg daily. - Closer follow-up fluid status (2) Elevated troponin level Current Visit: Yes Status: Acute Assessment and Plan: Troponin 6.24-11.51-7.01. Patient has a history of CAD S/P CABG. - Cardiology consult appreciated. Consider as NSTEMI. - Patient declined [facility], would like medical management. - Continue heparin drip for over 48 hours. - Continue aspirin, beta gonzales, and statin. Add Plavix per cardiology (3) DVT prophylaxis Current Visit: No Status: Acute Assessment and Plan: On heparin drip (4) Hypertension Current Visit: No Status: Chronic Assessment and Plan: Continue home medications. Closely monitor BP (5) Diabetes mellitus Current Visit: No Status: Chronic Assessment and Plan: Patient is not on insulin at home. Will place patient on sliding scale insulin when patient is in hospital (6) Acute respiratory failure with hypoxia Current Visit: No Status: Acute Assessment and Plan: Patient has increased oxygen demand. Chest Xray shows increased opacity. Suspect early pneumonia or CHF exacerbation. - Continue treat underlying disease - Continue supportive treatment with oxygen, continuous pulse oximetry monitoring (7) Pneumonia Current Visit: Yes Status: Acute Assessment and Plan: Patient has increased cough, subjective fever, leukocytosis, increased opacity on chest x-ray. Patient has generalized weakness. Highly suspect pneumonia. - MRSA screen negative, will DC vancomycin - Legionella and Strep Pneumo Ags negative, will DC azithromycin - Respiratory viral panel negative - Keep the patient on iv cefepime for healthcare associated pneumonia - Patient has mild wheezing, will place him on bronchodilator scheduled and when necessary. (8) Sepsis Current Visit: Yes Status: Acute Assessment and Plan: Patient meet sepsis criteria with leukocytosis and hypoxia. Likely due to pneumonia - Antibiotics started in the emergency room. - No IV fluid as patient has signs of fluid overload. - Mild elevated lactate is also possibly due to hypoxia. repeat lactate 1.8 - Follow up blood culture, UA negative. (9) Urinary retention Current Visit: Yes Status: Acute Assessment and Plan: Patient has difficulty urination this morning. Urinary retention resolved after Maurice catheter placement. - Continue Maurice catheter - Patient has history of prostate cancer S/P radiation therapy. Will consult urology for further management DVT Prophylaxis: Patient is on heparin drip - Time Spent with Patient Total time spent is greater than 50% in coordination of care (as documented) at patient's floor/unit and/or counseling patient: 30 minutes 25 - 35 minutes Plan of Care Discussed with: patient Internal Medicine: Result - Labs CBC & Chem 7: 10/10/18 04:06 10/10/18 04:06 Labs: Short CBC 10/09/18 10/09/18 10/10/18 Range/Units 11:09 13:08 04:06 WBC 18.9 H 17.9 H 15.9 H (4.3-11.1) K/mcL Hgb 12.2 L 12.0 L 12.1 L (12.9-16.9) g/dL Hct 35.5 L 34.8 L 33.1 L (37.5-50.1) % Plt Count 256 257 264 (140-400) K/mcL Neutrophils # 16.3 H 13.7 H (1.6-8.9) K/mcL BMP 10/09/18 10/10/18 11:09 04:06 Sodium 129 L 129 L Potassium 3.7 3.4 L Chloride 93 L 93 L Carbon Dioxide 26 26 BUN 20 21 Creatinine 1.04 1.03 Glucose 178 H 233 H Calcium 8.8 8.4 L Cardiac Enzymes 10/09/18 10/09/18 10/09/18 Range/Units 11:09 16:56 23:10 Troponin I 6.24 H* 11.51 H* 7.01 H* (< 0.04) ng/mL Urine 10/09/18 Range/Units 15:17 Urine Color Yellow (Yellow) Urine Clarity Clear (Clear) Urine pH 6.0 (5.0-8.0) pH Units Ur Specific [place] 1.011 (1.010-1.025) Urine Protein Trace (Neg-Trace) mg/dL Urine Glucose (UA) Normal (Normal) mg/dL - ABG Interpretation ABG results: PT/INR, D-dimer PT 16.3 Seconds (9.4-12.1) H 10/09/18 13:08 - Impressions Impressions Chest X-Ray 10/09/18 10:51 IMPRESSION: 1. Mild congestive heart failure. Findings are new since 09/17/2018. D/ / 10/09/2018 11:41:24 Indy Shaffer MD / ed Interpreting Provider: Indy Shaffer MD Consult Discharge Plan - Plan Referrals: Corky Estrada MD [Primary Care Provider] - (1) Congestive heart failure Qualifiers: Heart failure type: diastolic Heart failure chronicity: acute on chronic Qualified Code(s): I50.33 - Acute on chronic diastolic (congestive) heart failure (4) Hypertension Qualifiers: Hypertension type: essential hypertension Qualified Code(s): I10 - Essential (primary) hypertension (5) Diabetes mellitus Qualifiers: Diabetes mellitus type: type 2 Diabetes mellitus fdc insulin use: without fdc use Diabetes mellitus complication status: with unspecified complications Qualified Code(s): 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
[2018-10-10] MEDS: Acetaminophen 325 MG TABLET PO PRN (11:24)
[2018-10-10] MEDS ORDERED: Azithromycin 500 MG in D5% in Water 250 ML IVPB SCH (15:00)
[2018-10-10] MEDS ORDERED: Perflutren Lipid Microsphere 1.3 ML in 0.9 % Sodium Chloride 8.7 ML IVP ONE (16:55)
[2018-10-11] MEDS: Heparin 25,000 UNIT/250 ML D5W 25,000 UNIT/250 ML IV.SOLN IVC SCH
[2018-10-11] MEDS: *HR* OxyCODONE Immed Rel 5 MG TABLET PO PRN (00:11)
[2018-10-11] MEDS: Cefepime HCl 2,000 MG in Water for inj. (sterile) 20 ML 20 ML IVP SCH (00:11)
[2018-10-11] MEDS: Acetaminophen 325 MG TABLET PO PRN ×2 (01:09→15:48)
[2018-10-11] MEDS: Ibuprofen 600 MG TABLET PO PRN ×2 (03:19→20:38)
[2018-10-11] MEDS: Ipratropium/Albuterol Neb 3 ML IH SCH ×4 (04:28→21:57)
--- NOTE | 2018-10-11 08:32 | Urology - Consult Note ---
Date of Encounter: 10/11/18 Time of Encounter: 07:50 - Assessment and Plan (1) Prostate cancer Current Visit: Yes Status: Acute Assessment and plan: Patient is an 83-year-old male who presents with a history of prostate cancer. Patient reportedly has had very low PSA level; although, there is no PSA available for review. Patient has indwelling Lin which will likely affect true PSA reading. We may address PSA at patient's outpatient follow-up. Patient is tentatively rescheduled for outpatient cystoscopy tomorrow, but this will need to be rescheduled once again. (2) Urinary retention Current Visit: Yes Status: Acute Assessment and plan: Patient is an 83-year-old male who presents with a history of acute urinary retention. Retention is likely multifactorial due to patient's overall declining health status. We will continue indwelling Lin catheter during his hospital stay, and we will plan to proceed with a voiding trial as an outpatient. Flomax may be considered to improve voiding. Dr. Mclaughlin will reevaluate patient later today. Urology CN:HPI Consult date: 10/11/18 Reason for consult Urology: Other (urinary retention; prostate cancer) Requesting physician: Renate Watters History of present illness: Patient is an 83-year-old male who presents with history of prostate cancer treated with radiation and acute urinary retention. Patient is status post CVA and has altered mentation. Patient was unable to actively participate in history and physical examination. The majority of patient's history has been collected from initial H&P by internal medicine as well as information provided by patient's nurse. Patient presented to the emergency department from long- term care facility with a history of 2 falls in the last 3 days. Patient exhibits baseline weakness after CVA, but his overall condition has been declining over the last week. On examination, patient was found to have pulmonary edema and elevated troponin, and he was admitted for further evaluation and management of CHF exacerbation and elevated troponin. Patient was recently admitted to the hospital with CHF exacerbation, and he was discharged on 09/21/2017. I reviewed patient's [facility] records, and patient re cently established with Dr. Sarmiento in 08/2018. Patient was accompanied with his at that appointment who stated he underwent radiation for prostate cancer approximately 5-6 years ago. There are no PSA records available for review. Patient has also undergone a TURP procedure prior to radiation for urinary frequency and urgency, but patient is still taking Oxybutynin due to persistent urinary symptoms. Patient was scheduled for cystoscopy with Dr. Sarmiento but canceled this procedure. Patient denies any prior history of urinary retention and is unsure of his baseline voiding habits. Patient currently has indwelling lin catheter that is draining transparent, clear urine. Patient denies any known family history of prostate cancer, although, he is an unreliable historian. Past Med Surg Social Fam HX - Past Medical History Medical history: coronary artery disease, CVA, diabetes, hyperlipidemia, hypertension Additional medical history: prostate cancer w/ radiation, melanoma, retina surgery, CABG x3, strokes x2 Psychiatric history: no psych history - Past Surgical History Surgical History: coronary bypass (CABG) Additional surgical history: triple bypass, prostate cancer, 2 melenomas taken off back, 4 eye eye procedures, hernia repair, bladder surgery - Social History Smoking Status: Never smoker Smokeless Tobacco Status: No Alcohol use: none Drug use: none - Family History Mother Living Status: Hx Family Cardiac Disorders: Yes Father Living Status: Hx Family Cardiac Disorders: Yes Medications and Allergies Aspirin Enteric Coated [Aspirin EC] 325 mg PO DAILY 09/16/18 [History] Atenolol [Tenormin] 12.5 mg PO DAILY 09/16/18 [History] Glimepiride [Amaryl] 4 mg PO 0800 09/16/18 [History] Levothyroxine [Synthroid] 50 mcg PO 0630 09/16/18 [History] Meclizine [Antivert] 25 mg PO TID PRN 09/16/18 [History] Oxybutynin Chloride [Ditropan Xl] 10 mg PO DAILY 09/16/18 [History] Furosemide [Lasix] 20 mg PO BIDDIURETIC 30 Days #60 tablet 09/21/18 [Rx] Meloxicam 15 mg PO DAILY 10/09/18 [History] Rosuvastatin [Crestor] 20 mg PO HS 10/09/18 [History] Allergy/AdvReac Type Severity Reaction Status Date / Time metronidazole [From Flagyl] Allergy Anaphylaxis Verified 07/28/15 15:18 Review of Systems ROS unobtainable: due to mental status Exam Initial Vital Signs Temp Pulse Resp BP Pulse Ox 99.6 F 90 22 140/74 96 10/09/18 10:52 10/09/18 10:52 10/09/18 10:52 10/09/18 10:52 10/09/18 10:52 - General physical appearance Present: no distress, no pain - Eyes Present: PERRL, normal ocular movement - ENT Present: normal nares, no congestion, decreased hearing - Neck Present: no masses, trachea midline - Respiratory Present: normal respiratory effort - Cardiovascular Cardiovascular exam IM: RRR - Abdomen Abdomen: Present: soft, non tender - Genitourinary other (lin catheter is indwelling and draining transparent, clear urine into bedside bag) - Integumentary Present: no rash, no abnormal pigmentation - Neurologic Present: disoriented, confused - Musculoskeletal Present: other (grossly normal ) Urology Results - Labs 10/10/18 04:06 10/10/18 04:06 Abnormal lab results WBC 15.9 K/mcL (4.3-11.1) H 10/10/18 04:06 RBC 3.58 M/mcL (4.19-5.50) L 10/10/18 04:06 Hgb 12.1 g/dL (12.9-16.9) L 10/10/18 04:06 Hct 33.1 % (37.5-50.1) L 10/10/18 04:06 MCH 33.8 pg (28.0-33.3) H 10/10/18 04:06 MCHC 36.6 g/dL (31.6-35.5) H 10/10/18 04:06 Neutrophils # 13.7 K/mcL (1.6-8.9) H 10/10/18 04:06 Nucleated RBCs/100 WBC 0.1 /100 WBC (0) H 10/09/18 11:09 PT 16.3 Seconds (9.4-12.1) H 10/09/18 13:08 Sodium 129 mEq/L (136-145) L 10/10/18 04:06 Potassium 3.4 mEq/L (3.5-5.1) L 10/10/18 04:06 Chloride 93 mEq/L (98-107) L 10/10/18 04:06 Glucose 233 mg/dL (70-105) H 10/10/18 04:06 POC Glucose 136 mg/dL (70-99) H 10/10/18 20:20 Calculated Osmolality 278 (280-300) L 10/10/18 04:06 Calcium 8.4 mg/dL (8.6-10.3) L 10/10/18 04:06 Troponin I 7.01 ng/mL (< 0.04) H* 10/09/18 23:10 B-Natriuretic Peptide 152 pg/mL (Less than 100) H 10/09/18 11:09 All other labs normal. Consult Discharge Plan - Plan Referrals: Corky Estrada MD [Primary Care Provider] -
[2018-10-11] MEDS ORDERED: Cefepime HCl 2,000 MG in Water for inj. (sterile) 20 ML 20 ML IVP SCH (09:00)
--- NOTE | 2018-10-11 09:23 | Cardiology Progress Note ---
Date of Encounter: 10/11/18 Time of Encounter: 09:20 Assessment and Plan (1) ACS (acute coronary syndrome) Current Visit: Yes Status: Acute Pt presented for weakness/falls, feeling ill--chills, subjective fevers. Troponins 6.24, 11.51, 7.01, downtrending. He denies chest pain or dyspnea. ECG reviewed--known RBBB. Inferior ST elevation. ST depression in anterolateral leads are more pronounced compared to previous. Limited TTE EF is preserved with normal wall motion. Hx of CAD and CABG in 2007. Recommended LHC given ACS. R/B/A discussed. Pt declines. He wishes to pursue medical management only d/t hx of CVA after LHC previously. Continue heparin gtt x 24-48 hours. Continue ASA, Statin, BB. Started Plavix 75mg daily. Cardiology signing off. Reconsult PRN. Palliative consult to discuss code status change since pt does not want to be aggressive. (2) Diastolic CHF Current Visit: Yes Status: Acute Hx of diastolic CHF. Pt denies worsening dyspnea, although he was found to be hypoxic in ED. TTE 08/2018 EF 65%. BNP 152. CXR mild CHF. Mild BLE edema on exam. Was on IV Lasix, primary team transitioned to PO. Recommend strict I/Os, Na and fluid restriction, daily weights. Qualifiers: Heart failure chronicity: chronic Qualified Code(s): I50.32 - Chronic diastolic (congestive) heart failure (3) CAD (coronary artery disease) Current Visit: No Status: Chronic Hx of CABG. Continue ASA, Statin, BB. Qualifiers: Coronary Disease-Associated Artery/Lesion type: bypass graft [place] vs. transplanted heart: [place] heart Associated angina: without angina Qualified Code(s): I25.810 - Atherosclerosis of coronary artery bypass graft(s) without angina pectoris Discussion w patient/family: The assessment and plan as outlined above was discussed with the patient and/or family members who expressed understanding and agreement. All questions were answered. Thank you for involving us in the care of your patient. Please call with any questions. I will discuss all the above with Dr. King and make changes as necessary. Subjective Principal diagnosis: ACS Interval history: Pt denies chest pain or dyspnea this AM. Objective Vital Signs, Last 4 Hours Temp Pulse Resp BP Pulse Ox 10/11/18 07:15 98.7 F 93 18 114/75 93 Vital Signs Temp Pulse Resp BP Pulse Ox 10/11/18 07:15 98.7 F 93 18 114/75 93 10/11/18 04:29 22 94 10/11/18 04:06 99.2 F 104 18 106/69 95 10/11/18 03:57 101.2 F H 105 10/11/18 02:30 102.9 F H 10/11/18 01:07 103 F H 10/11/18 00:08 99.9 F H 108 20 137/66 90 10/10/18 22:53 14 95 10/10/18 19:45 94 10/10/18 19:15 98.5 F 90 21 129/78 94 10/10/18 16:18 98.8 F 91 20 118/74 95 10/10/18 15:37 16 118/74 95 10/10/18 13:58 98.8 F 89 95 10/10/18 12:38 101.7 F H 98 24 95 10/10/18 11:13 103.1 F H 103 30 139/77 95 10/10/18 10:16 18 118/74 95 Intake and Output 10/10/18 10/11/18 10/11/18 23:59 07:59 15:59 Intake Total 526 / 526 Output Total 300 / 300 400 / 400 Balance 226 / 226 -400 / -400 Intake: IV Fluids 166 / 166 Heparin 25,000 UNIT/250 ML D5W 146 / 146 25,000 unit In 250 ml @ 14 UNIT /KG/HR 15.582 mls/hr IVC . Q16H3M [facility] Rx#:[id number] Maxipime 2,000 MG In Water for inj. (sterile) 20 ML @ 300 mls/ hr IVP Q8H RENEA Rx#:[id number] Oral 360 / 360 Output: Catheter 300 / 300 400 / 400 Other: Meal Dinner Percent of Meal Consumed 0% Weight 108.7 kg Blood Glucose* 136 211 Patient Weight 10/11/18 23:59 Weight 108.7 kg General: Conversant, No Apparent Distress HEENT: Atraumatic, Normocephaly, Mucus Membranes Moist Neck: No JVD, Normal carotid pulses Cardiac: Reg Rate and Rhythm, Normal S1 and S2, No Murmur Lungs: Normal Breath Sounds, No Wheeze, Rales, Rhonchi Neuro: Alert and responsive, No focal deficits noted Abdomen: Soft, Non-Tender Skin: No rashes noted on visualized skin Musculoskeletal: No Chest Wall Tenderness Extremities: Other (mild BLE edema) Results 10/10/18 04:06 10/10/18 04:06 Impressions Echocardiogram Limited Views 10/10/18 10:38 Impressions: LVEF 55-60%. Mild concentric left ventricular hypertrophy. Normal LV wall motion. Left Ventricular Wall Motion: Rest Echo Findings All wall segments showed normal motion. Findings: Study Quality * Technically sub-optimal due to body habitus. ECG Findings * Normal sinus rhythm. Left Ventricle * LVEF 55-60%. * Mild concentric left ventricular hypertrophy. Right Ventricle * Normal right ventricular structure and function. Aorta * Normally sized aortic root. * Proximal ascending thoracic aorta not well visualized. Pericardium * There is no pericardial effusion present. IVC * Normal IVC dimensions and inspiratory collapse. Interatrial Septum * No evidence of PFO by color Doppler. Active Medications Acetaminophen (Tylenol) 650 mg PO Q6HR PRN PRN Reason: Mild Pain/Fever Stop: 04/10/19 14:37 Last Admin: 10/11/18 01:09 Dose: 650 mg Albuterol/Ipratropium (Duoneb) 3 ml IH [id number] [facility] Stop: 04/10/19 16:01 Last Admin: 10/11/18 04:28 Dose: 3 ml Albuterol/Ipratropium (Duoneb) 3 ml IH [id number] PRN PRN Reason: Shortness Of Breath/Wheezing Stop: 04/10/19 14:44 Aspirin (Aspirin Ec) 81 mg PO DAILY [facility] Stop: 04/11/19 09:01 Last Admin: 10/10/18 08:34 Dose: 81 mg Atenolol (Tenormin) 12.5 mg PO DAILY [facility] Stop: 04/11/19 09:01 Last Admin: 10/10/18 08:34 Dose: 12.5 mg Clopidogrel Bisulfate (Plavix) 75 mg PO DAILY [facility] Stop: 04/11/19 09:01 Last Admin: 10/10/18 08:34 Dose: 75 mg Dextrose/Water (Dextrose 50% (Syg)) 25 ml IVP AD PRN PRN Reason: Hypoglycemia Stop: 04/10/19 14:41 Furosemide (Lasix) 20 mg PO BIDDIURETIC [facility] Stop: 04/12/19 08:01 Glucagon (Glucagen) 1 mg IM ONCE PRN PRN Reason: Hypoglycemia Stop: 04/10/19 14:41 Glucose (Gluctose) 15 gm PO ONCE PRN PRN Reason: Hypoglycemia Stop: 04/10/19 14:41 Glucose (Gluctose) 30 gm PO ONCE PRN PRN Reason: Hypoglycemia Stop: 04/10/19 14:41 Heparin Sodium (Porcine) (Heparin) 7,800 unit 70 unit/kg (7800 unit) IVP Q6HR PRN PRN Reason: SEE COMMENTS Stop: 04/10/19 12:33 Heparin Sodium (Porcine) (Heparin) 3,900 unit 35 unit/kg (3900 unit) IVP Q6H PRN PRN Reason: SEE COMMENTS Stop: 04/10/19 12:33 Heparin Sodium/Dextrose (Heparin 25,000 Unit/250 Ml D5w) 25,000 unit in 250 mls @ 15.582 mls/hr IVC .Q16H3M [facility]; Protocol Stop: 04/10/19 12:46 Last Admin: 10/11/18 00:00 Dose: 9 unit/kg/hr, 10 mls/hr Dextrose (Dextrose 5%) 1,000 mls @ 100 mls/hr IVC .Q10H PRN PRN Reason: HYPOGLYCEMIA Stop: 04/10/19 14:41 Cefepime HCl 2,000 mg/ Sterile (Water) 20 mls @ 300 mls/hr IVP Q12H [facility] Stop: 04/12/19 09:01 Ibuprofen (Motrin) 600 mg PO Q6HR PRN; Protocol PRN Reason: Pain/Fever Stop: 04/12/19 02:42 Last Admin: 10/11/18 03:19 Dose: 600 mg Insulin Human Lispro (Humalog) 0 units SQ HS [facility]; Protocol Stop: 04/10/19 21:01 Last Admin: 10/10/18 21:23 Dose: Not Given Insulin Human Lispro (Humalog) 0 units SQ TIDAC [facility]; Protocol Stop: 04/10/19 16:31 Last Admin: 10/10/18 17:09 Dose: 4 units Levothyroxine Sodium (Synthroid) 50 mcg PO 0630 [facility] Stop: 04/11/19 06:31 Last Admin: 10/10/18 06:04 Dose: 50 mcg Meclizine HCl (Antivert) 25 mg PO TID PRN PRN Reason: DIZZINESS Stop: 04/10/19 14:47 Naloxone HCl (Narcan) 0.4 mg IVP Q2M PRN PRN Reason: SEE COMMENTS Stop: 04/10/19 14:37 Oxybutynin Chloride (Ditropan) 5 mg PO BID [facility] Stop: 04/11/19 09:01 Last Admin: 10/10/18 21:23 Dose: 5 mg Oxycodone HCl (Roxicodone) 5 mg PO Q6H PRN; Protocol PRN Reason: Pain Stop: 04/11/19 23:46 Last Admin: 10/11/18 00:11 Dose: 5 mg Rosuvastatin Calcium (Crestor) 20 mg PO HS [facility] Stop: 04/10/19 21:01 Last Admin: 10/10/18 21:23 Dose: 20 mg - Imaging and Cardiology Echo: report reviewed - EKG Interpretation EKG results cardiology: other (12 hr tele AVG HR 102, SR) Consult Discharge Plan - Plan Referrals: Corky Estrada MD [Primary Care Provider] -
[2018-10-11] MEDS: Insulin LISPRO 300 UNITS/3 ML VIAL SQ SCH ×4 (11:12→20:37)
[2018-10-11] MEDS: Furosemide 20 MG TABLET PO SCH ×2 (11:13→18:14)
[2018-10-11] MEDS: Aspirin Enteric Coated 81 MG Tablet PO SCH (11:13)
--- NOTE | 2018-10-11 11:17 | Internal Med Progress Note ---
Hospitalist Progress Note - Encounter Date of Encounter: 10/11/18 Time of Encounter: 09:00 - Subjective Interval History: Patient has severe cough and high fever overnight. Complain of his condition is "terrible". Denies chest pain or shortness of breath. No nausea or vomiting. - Exam Vitals: Temp Pulse Resp BP Pulse Ox 98.7 F 93 18 114/75 97 10/11/18 07:15 10/11/18 07:15 10/11/18 10:15 10/11/18 07:15 10/11/18 10:15 Exam: Pt is AAO x 3, in mild acute distress because of cough HEENT: NC/AT, PERRL Neck: Supple, no JVD, no LAD Lungs: Coarse breath sound bilaterally, with scattered wheezing/rhonchi on bilateral lung base Heart: S1S2, RRR Abd: Soft, nontender, BS present Ext: ROM wnl, no pedal edema Neuro: No focal deficit - Assessment and Plan (1) Congestive heart failure Current Visit: No Status: Acute Assessment and Plan: Patient has a history of diastolic CHF on by mouth Lasix. Patient has increased oxygen demand and chest x-ray shows increased pulmonary edema. BNP 152. - As pt has fever/WBC/cough, more favorite the diagnosis of pneumonia. - Patient is generally euvolemic based on my evaluation, will continue home dose of by mouth Lasix. - Cont Strict I and O and low salt diet (2) Elevated troponin level Current Visit: Yes Status: Acute Assessment and Plan: Troponin 6.24-11.51-7.01. Patient has a history of CAD S/P CABG. - Cardiology consult appreciated. Consider as NSTEMI. - Patient declined [facility], would like medical management. - Continue heparin drip for over 48 hours. Now discontinued by cardio - Continue aspirin, beta gonzales, and statin. Add Plavix per cardiology (3) DVT prophylaxis Current Visit: No Status: Acute Assessment and Plan: Heparin SC (4) Hypertension Current Visit: No Status: Chronic Assessment and Plan: Continue home medications. Closely monitor BP (5) Diabetes mellitus Current Visit: No Status: Chronic Assessment and Plan: Patient is not on insulin at home. Will place patient on sliding scale insulin when patient is in hospital (6) Acute respiratory failure with hypoxia Current Visit: No Status: Acute Assessment and Plan: Patient has increased oxygen demand. Chest Xray shows increased opacity. Patient has a fever and leukocytosis, consider pneumonia - Continue treat underlying disease - Continue supportive treatment with oxygen, continuous pulse oximetry monitoring (7) Pneumonia Current Visit: Yes Status: Acute Assessment and Plan: Patient has increased cough, fever, leukocytosis, increased opacity on chest x- ray. Patient has generalized weakness. Consider healthcare associated pneumonia. - MRSA screen negative, will DC vancomycin - Legionella and Strep Pneumo Ags negative, will DC azithromycin - Respiratory viral panel negative - Keep the patient on iv cefepime for healthcare associated pneumonia - Patient has mild wheezing/rhonchi, will place him on bronchodilator scheduled and when necessary. (8) Sepsis Current Visit: Yes Status: Acute Assessment and Plan: Patient meet sepsis criteria with leukocytosis and hypoxia. Likely due to pneumonia - Antibiotics started in the emergency room. - No IV fluid as patient has hx of CHF - Mild elevated lactate is also possibly due to hypoxia. repeat lactate 1.8 - Follow up blood culture, UA negative. (9) Urinary retention Current Visit: Yes Status: Acute Assessment and Plan: Patient has difficulty urination this morning. Urinary retention resolved after Maurice catheter placement. - Continue Maurice catheter - Patient has history of prostate cancer S/P radiation therapy. - Urology consult and the recommendation appreciated DVT Prophylaxis: Heparin SC - Time Spent with Patient Total time spent is greater than 50% in coordination of care (as documented) at patient's floor/unit and/or counseling patient: 30 min 25 - 35 minutes Plan of Care Discussed with: patient Internal Medicine: Result - Labs CBC & Chem 7: 10/10/18 04:06 10/10/18 04:06 - ABG Interpretation ABG results: PT/INR, D-dimer PT 16.3 Seconds (9.4-12.1) H 10/09/18 13:08 - Impressions Impressions Echocardiogram Limited Views 10/10/18 10:38 Impressions: LVEF 55-60%. Mild concentric left ventricular hypertrophy. Normal LV wall motion. Left Ventricular Wall Motion: Rest Echo Findings All wall segments showed normal motion. Findings: Study Quality * Technically sub-optimal due to body habitus. ECG Findings * Normal sinus rhythm. Left Ventricle * LVEF 55-60%. * Mild concentric left ventricular hypertrophy. Right Ventricle * Normal right ventricular structure and function. Aorta * Normally sized aortic root. * Proximal ascending thoracic aorta not well visualized. Pericardium * There is no pericardial effusion present. IVC * Normal IVC dimensions and inspiratory collapse. Interatrial Septum * No evidence of PFO by color Doppler. Consult Discharge Plan - Plan Referrals: Corky Estrada MD [Primary Care Provider] - (1) Congestive heart failure Qualifiers: Heart failure type: diastolic Heart failure chronicity: acute on chronic Qu alified Code(s): I50.33 - Acute on chronic diastolic (congestive) heart failure (4) Hypertension Qualifiers: Hypertension type: essential hypertension Qualified Code(s): I10 - Essential (primary) hypertension (5) Diabetes mellitus Qualifiers: Diabetes mellitus type: type 2 Diabetes mellitus usp insulin use: without terminal supervisor use Diabetes mellitus complication status: with unspecified complications Qualified Code(s): 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
[2018-10-11 12:07] LABS: Hematocrit 37.7 % (37.5-50.1); Hemoglobin 12.7 g/dL (12.9-16.9); Mean Corpuscular HGB Conc 33.7 g/dL (31.6-35.5); Mean Corpuscular Hemoglobin 32.2 pg (28.0-33.3); Mean Corpuscular Volume 95.7 fL (83.0-100.0); Mean Platelet Volume 9.6 fL (9.4-12.4); Platelet Count 274 K/mcL (140-400); Red Blood Count 3.94 M/mcL (4.19-5.50); Red Cell Distribution Width 14.2 % (11.5-14.5)
[2018-10-11 12:23] LABS: BUN/Creatinine Ratio 26 (6-26); Blood Urea Nitrogen 32 mg/dL (8-23); Calcium 9.2 mg/dL (8.6-10.3); Carbon Dioxide 27 mEq/L (23-29); Chloride 91 mEq/L (98-107); Glucose 222 mg/dL (70-105); Osmolality,Calculated 280 (280-300); Potassium 3.6 mEq/L (3.5-5.1); Sodium 128 mEq/L (136-145); eGFR For Non-African Americans 56 (> 60)
[2018-10-11 12:31] LABS: Eosinophils # 0.4 K/mcL (0.0-0.6); Lymphocytes # 0.4 K/mcL (0.6-4.6); Neutrophils # 19.7 K/mcL (1.6-8.9)
[2018-10-11 12:34] LABS: Platelet Estimate Normal (Normal); Toxic Granulation Present (Not Present); Toxic Vacuolation Present (Not Present)
--- NOTE | 2018-10-11 14:47 | Event Note ---
Date of Encounter: 10/11/18 Time of Encounter: 13:00 Pt has worsening clinical picture and elevated WBC. will restart zosyn instead cefepime. Cont closely monitoring.
[2018-10-11] MEDS: 0.9 % Sodium Chloride 1,000 ML IVC SCH (15:44)
[2018-10-11] MEDS ORDERED: Piperacillin/Tazobactam 3.375 GM in 0.9 % Sodium Chloride Mini Bag 100 ML IVPB SCH (16:00)
--- NOTE | 2018-10-11 16:02 | Palliative - Consult Note ---
Date of Encounter: 10/11/18 Time of Encounter: 13:15 - Assessment and Plan (1) Goals of care, counseling/discussion Current Visit: Yes Status: Acute Assessment and plan: Met with patient and his regarding goals of care. Reviewed reasoning behind refusing heart cath, patient had CVA within 2 hours of last heart cath and [place] sn't want to have another. Reviewed risk of further cardiac event without cath, and patient verbalized understanding, continue to desire medical management. Patient verbalizes that he understands he cannot go straight home, but afraid to return to [place], would like to transition to [facility] or [place]. Reviewed CODE STATUS, reports patient is too sleepy to make that type of decision at this time; however, she wants him to remain a FULL CODE. Willing to review in a couple days when arouses more. (2) Chest congestion Current Visit: Yes Status: Acute Assessment and plan: Patient c/o increased chest congestion. Add Mucinex. (3) Weakness Current Visit: Yes Status: Acute Assessment and plan: Patient and admit patient is weaker now than last admission. reports fear that he may lose strength while in hospital and set him back from getting better. Ordered PT/OT consult. (4) Congestive heart failure Current Visit: No Status: Acute Assessment and plan: EF 55-60%. Cardiology recommendations appreciated. Management per primary team. Qualifiers: Heart failure type: diastolic Heart failure chronicity: acute on chronic Qualified Code(s): I50.33 - Acute on chronic diastolic (congestive) heart failure (5) Elevated troponin level Current Visit: Yes Status: Acute Assessment and plan: Troponin 7.01. Medical management. (6) LUDA (obstructive sleep apnea) Current Visit: No Status: Suspected (7) Pneumonia Current Visit: Yes Status: Acute Assessment and plan: Zosyn and waqas from primary team. Qualifiers: Pneumonia type: due to unspecified organism Laterality: bilateral Lung location: lower lobe of lung Qualified Code(s): J18.1 - Lobar pneumonia, unspecified organism (8) NSTEMI (non-ST elevated myocardial infarction) Current Visit: Yes Status: Acute Assessment and plan: Cardiology recommendations appreciated. (9) Sepsis Current Visit: Yes Status: Acute Qualifiers: Sepsis type: sepsis due to unspecified organism Qualified Code(s): A41.9 - Sepsis, unspecified organism (10) Urinary retention Current Visit: Yes Status: Acute Assessment and plan: Urology consulted; lin placed. (11) Prostate cancer Current Visit: Yes Status: Acute Palliative-CN HPI - Data of Consult Patient: new to practice Consult date: 10/11/18 Requesting Physician: Vaibhav Mejia Primary Care Provider: Corky Estrada MD - Consult Narrative Palliative Care/Comfort Measures: Palliative care Reason for consult: 1. CODE STATUS. 2. Goals of care. History of present illness: Mr. Douglas is a 83 year old male Arrived to [facility] via EMS from [facility] on 10/09/18. Patient experiencing hypoxia (80s), Cough, Dyspnea, nausea, and productive sputum cough times 2 days. Patient admitted with [facility] troponins, NSTEMI, CHF exacerbation, Pneumonia, and Sepsis. PMH: CAD, CVA (X2), DM, HLD, HTN, and CABG. CXR showed CHF. Cardiology consulted, patient refused Heart catherization, recommended medical management (Heparin gtt, Lasix, Strict I&Os, ASA, Statin, BB, and Plavix) prior to signing off. Urolgoy consulted due to prostate cancer and urinary retention; lin catheter placed with plan for follow up outpatient. Patient experiencing worsening cough and chest congestion r/t pneumonia. WBC increased to 20.5 thousand. Palliative care consulted for goals of care and code status discussion. Patient lying in bed with eyes closed upon arrival for assessment. Patient arouses to tactile stimulation, but dozes off with long conversations. Patient denies pain, nausea, vomiting, and dyspnea. Patient reports increased agitation and difficulty coughing up stuff in lungs. Patients Jessica present at beside and participated in goals of care discussion. CC: Vaibhav Mejia - Time Spent with Patient Time: Total time spent is greater than 50% in coordination of care (as documented) at patient's floor/unit and/or counseling patient: Time with patient: 60 minutes Past Med Surg Social Fam HX - Past Medical History Medical history: coronary artery disease, CVA, diabetes, hyperlipidemia, hypertension Additional medical history: prostate cancer w/ radiation, melanoma, retina surgery, CABG x3, strokes x2 Psychiatric history: no psych history - Past Surgical History Surgical History: coronary bypass (CABG) Additional surgical history: triple bypass, prostate cancer, 2 melenomas taken off back, 4 eye eye procedures, hernia repair, bladder surgery - Social History Smoking Status: Never smoker Smokeless Tobacco Status: No Alcohol use: none Drug use: none - Family History Mother Living Status: Hx Family Cardiac Disorders: Yes Father Living Status: Hx Family Cardiac Disorders: Yes Medications and Allergies Aspirin Enteric Coated [Aspirin EC] 325 mg PO DAILY 09/16/18 [History] Atenolol [Tenormin] 12.5 mg PO DAILY 09/16/18 [History] Glimepiride [Amaryl] 4 mg PO 0800 09/16/18 [History] Levothyroxine [Synthroid] 50 mcg PO 0630 09/16/18 [History] Meclizine [Antivert] 25 mg PO TID PRN 09/16/18 [History] Oxybutynin Chloride [Ditropan Xl] 10 mg PO DAILY 09/16/18 [History] Furosemide [Lasix] 20 mg PO BIDDIURETIC 30 Days #60 tablet 09/21/18 [Rx] Meloxicam 15 mg PO DAILY 10/09/18 [History] Rosuvastatin [Crestor] 20 mg PO HS 10/09/18 [History] Allergy/AdvReac Type Severity Reaction Status Date / Time metronidazole [From Flagyl] Allergy Anaphylaxis Verified 07/28/15 15:18 - Constitutional Constitutional ROS PAL: decreased appetite, chills, fatigue, fever(s), lethargy, malaise, no frequent falls - EENT Eyes: no change in vision - Cardiovascular Cardiovascular ROS: dyspnea on exertion, no chest pain, no chest pain at rest, no edema, no irregular heart rhythm - Respiratory Respiratory: cough, dyspnea on exertion, wheezing, chest congestion, excessive phlegm production, change in phlegm color, no dyspnea, no hemoptysis - Gastrointestinal Gastrointestinal: nausea, no vomiting - Genitourinary Genitourinary ROS male: difficulty urinating, urinary frequency - Musculoskeletal Musculoskeletal ROS IM: no back pain - Integumentary ROS Integumentary: no dry skin - Neurological Neurological ROS: behavioral changes, weakness - Psychiatric Psychiatric general PM: anxiety, irritability (related to losing wallet.) Palliative Care-Exam - Constitutional Vitals: Temp Pulse Resp BP Pulse Ox 98.3 F 90 21 130/77 94 04/01/19 11:20 10/11/18 11:20 10/11/18 15:30 10/11/18 11:20 10/11/18 15:30 General appearance: Present: cooperative, mild distress, morbidly obese - Head Head Exam: Present: atraumatic, normal inspection - Eye Eye exam: Present: normal appearance, PERRL, conjuntiva pink. Absent: nystagmus, periorbital swelling, periorbital tenderness Pupils: Absent: fixed - ENT ENT exam: Present: mucous membranes moist, normal external ear exam. Absent: mucous membranes dry - Expanded ENT Exam Mouth Exam: Absent: drooling - Neck Neck exam: Present: full ROM, normal inspection - Expanded Neck Exam Neck exam: Absent: anterior neck swelling - Respiratory Respiratory exam: Present: accessory muscle use, prolonged expiratory phase, rhonchi, wheezes. Absent: respiratory distress - Cardiovascular Cardiovascular exam: Present: +S1, +S2 - GI/Abdominal Exam GI/Abdominal exam: Present: diminished bowel sounds, soft. Absent: tenderness - Rectal Rectal Exam: Present: deferred - Catheter Type: Urethral (Lin) - Extremities Exam Extremities exam: Present: normal inspection. Absent: pedal edema - Back Exam Back exam: Present: normal inspection. Absent: rash noted, tenderness - Neurological Exam Neurological exam: Present: alert, oriented X3. Absent: altered, facial droop, speech deficit - Expanded Neurological Exam Coma Scale Eye Opening: To Voice Coma Scale Motor Response: Obeys Commands Coma Scale Verbal Response: Oriented Coma Scale Total: 14 - Psychiatric Psychiatric exam: Present: agitated, flat affect Internal Medicine - CN: Reslt - Labs CBC & Chem 7: 10/11/18 11:53 10/11/18 11:53 Labs: Short CBC 10/11/18 Range/Units 11:53 WBC 20.5 H (4.3-11.1) K/mcL Hgb 12.7 L (12.9-16.9) g/dL Hct 37.7 (37.5-50.1) % Plt Count 274 (140-400) K/mcL Neutrophils # 19.7 H (1.6-8.9) K/mcL BMP 10/11/18 11:53 Sodium 128 L Potassium 3.6 Chloride 91 L Carbon Dioxide 27 BUN 32 H Creatinine 1.22 Glucose 222 H Calcium 9.2 - ABG Interpretation ABG results: PT/INR, D-dimer PT 16.3 Seconds (9.4-12.1) H 10/09/18 13:08 - Impressions Impressions Echocardiogram Limited Views 10/10/18 10:38 Impressions: LVEF 55-60%. Mild concentric left ventricular hypertrophy. Normal LV wall motion. Left Ventricular Wall Motion: Rest Echo Findings All wall segments showed normal motion. Findings: Study Quality * Technically sub-optimal due to body habitus. ECG Findings * Normal sinus rhythm. Left Ventricle * LVEF 55-60%. * Mild concentric left ventricular hypertrophy. Right Ventricle * Normal right ventricular structure and function. Aorta * Normally sized aortic root. * Proximal ascending thoracic aorta not well visualized. Pericardium * There is no pericardial effusion present. IVC * Normal IVC dimensions and inspiratory collapse. Interatrial Septum * No evidence of PFO by color Doppler. Consult Discharge Plan - Plan Referrals: Corky Estrada MD [Primary Care Provider] - Palliative Quality Palliative Quality: Screen for Code Status: Yes, Screen for Goals of Care: Yes, Screen for Pain: Yes, If Pain Regimen Started, Initiate Bowel Regimen: NA, Screen for Nausea/Vomitting: Yes Code Status: 10/09/18 14:36 Resuscitation Status: Active [RES] Routine Comment: Resuscitation Status: Full Code Palliative Scale - Palliative Performance Scale How ambulatory is this patient?: Mainly in bed What is patient's level of activity and evidence of disease?: Unable to do any work, Extensive disease How much self-care assistance does patient require?: Mainly assistance How much oral intake does the patient have?: Normal or reduced What is this patient's level of consciousness?: Full or drowsy with or without confusion Palliative Performance Score: 50 %
--- NOTE | 2018-10-11 17:43 | Event Note ---
Date of Encounter: 10/11/18 Time of Encounter: 17:30 RN report pt has abd skin redness with itching after starting zosyn. See pt at bedside, pt denies SOB. BP is stable. Skin redness on trunk with mild itching. Suspect allergy, possibly zosyn as it is newly started today. Will D/C zosyn and switch abx to meropenem. Cont closely monitor pt.
[2018-10-11] MEDS: *HR* Heparin 5,000 UNIT/ML VIAL SQ SCH (18:14)
[2018-10-11] MEDS ORDERED: Meropenem 1,000 MG in Water for inj. (sterile) 20 ML 10 ML IVP SCH (19:00)
[2018-10-11] MEDS: Meropenem 1,000 MG in Water for inj. (sterile) 20 ML 10 ML IVP SCH (20:36)
[2018-10-11] MEDS ORDERED: Cosyntropin 250 MCG/2 ML VIAL IVP ONE (21:58)
[2018-10-12] MEDS ORDERED: Meropenem 1,000 MG in Water for inj. (sterile) 20 ML 10 ML IVP SCH
[2018-10-12] MEDS: 0.9 % Sodium Chloride 1,000 ML IVC SCH ×3 (01:15→23:35)
[2018-10-12] MEDS: Ipratropium/Albuterol Neb 3 ML IH SCH ×4 (03:22→21:43)
[2018-10-12 05:37] LABS: Hematocrit 35.6 % (37.5-50.1); Mean Corpuscular HGB Conc 33.7 g/dL (31.6-35.5); Mean Corpuscular Volume 94.9 fL (83.0-100.0); Mean Platelet Volume 9.3 fL (9.4-12.4); Monocytes # 0.6 K/mcL (0.0-1.3); Platelet Count 250 K/mcL (140-400); Red Blood Count 3.75 M/mcL (4.19-5.50); Red Cell Distribution Width 14.2 % (11.5-14.5)
[2018-10-12 05:55] LABS: Calcium 8.7 mg/dL (8.6-10.3); Potassium 3.7 mEq/L (3.5-5.1)
[2018-10-12 06:07] LABS: Eosinophils # 1.7 K/mcL (0.0-0.6); Lymphocytes # 0.6 K/mcL (0.6-4.6); Neutrophils # 24.9 K/mcL (1.6-8.9); Platelet Estimate Normal (Normal)
[2018-10-12 06:08] LABS: Toxic Granulation Present (Not Present); Toxic Vacuolation Present (Not Present)
[2018-10-12] MEDS: Meropenem 1,000 MG in Water for inj. (sterile) 20 ML 10 ML IVP SCH ×2 (07:00→17:49)
[2018-10-12] MEDS: *HR* Heparin 5,000 UNIT/ML VIAL SQ SCH ×2 (07:02→17:49)
[2018-10-12] MEDS: Aspirin Enteric Coated 81 MG Tablet PO SCH (08:05)
[2018-10-12] MEDS: Furosemide 20 MG TABLET PO SCH ×2 (08:05→17:49)
[2018-10-12] MEDS: Insulin LISPRO 300 UNITS/3 ML VIAL SQ SCH ×4 (08:06→20:19)
--- NOTE | 2018-10-12 12:01 | Internal Med Progress Note ---
Hospitalist Progress Note - Encounter Date of Encounter: 10/12/18 Time of Encounter: 09:00 - Subjective Interval History: Patient still has a cough with mild shortness of breath. Denies chest pain. Patient has fever overnight and worsening leukocytosis. We will continue broad spectrum antibiotics. Pulmonology and ID was counseled. - Exam Vitals: Temp Pulse Resp BP Pulse Ox 100.2 F H 116 22 139/70 98 10/12/18 11:25 10/12/18 11:25 10/12/18 11:25 10/12/18 11:25 10/12/18 11:25 Exam: Pt is AAO x 3, in acute distress because of cough HEENT: NC/AT, PERRL Neck: Supple, no JVD, no LAD Lungs: Coarse breath sound bilaterally, with wheezing/rhonchi on bilateral lung base Heart: S1S2, RRR Abd: Soft, nontender, BS present Ext: ROM wnl, no pedal edema Neuro: No focal deficit - Assessment and Plan (1) Congestive heart failure Current Visit: No Status: Acute Assessment and Plan: Patient has a history of diastolic CHF on by mouth Lasix. Patient has increased oxygen demand and chest x-ray shows increased pulmonary edema. BNP 152. - As pt has fever/WBC/cough, more favorite the diagnosis of pneumonia. - Patient is generally euvolemic based on my evaluation, will continue home dose of by mouth Lasix. - Cont Strict I and O and low salt diet (2) Elevated troponin level Current Visit: Yes Status: Acute Assessment and Plan: Troponin 6.24-11.51-7.01. Patient has a history of CAD S/P CABG. - Cardiology consult appreciated. Consider as NSTEMI. - Patient declined [facility], would like medical management. - Continue heparin drip for over 48 hours. Now discontinued by cardio - Continue aspirin, beta gonzales, and statin. Add Plavix per cardiology (3) DVT prophylaxis Current Visit: No Status: Acute Assessment and Plan: Heparin SC (4) Hypertension Current Visit: No Status: Chronic Assessment and Plan: Continue home medications. Closely monitor BP (5) Diabetes mellitus Current Visit: No Status: Chronic Assessment and Plan: Patient is not on insulin at home. Will place patient on sliding scale insulin when patient is in hospital (6) Acute respiratory failure with hypoxia Current Visit: No Status: Acute Assessment and Plan: Patient has increased oxygen demand. Chest Xray shows increased opacity. Patient has a fever and leukocytosis, consider pneumonia - Continue treat underlying disease - Continue supportive treatment with oxygen, continuous pulse oximetry monito ring (7) Pneumonia Current Visit: Yes Status: Acute Assessment and Plan: Patient has increased cough, fever, leukocytosis, increased opacity on chest x- ray. Patient has generalized weakness. Patient is from intermediate. Consider healthcare associated pneumonia. - MRSA screen negative, will DC vancomycin - Legionella and Strep Pneumo Ags negative, will DC azithromycin - Respiratory viral panel negative - Keep the patient on iv meropenem for healthcare associated pneumonia - Patient has mild wheezing/rhonchi, will place him on bronchodilator scheduled and when necessary. - Fever and leukocytosis persist and even worse, although patient on broad- spectrum antibiotics. Will consult pulmonology and infection disease. Prognosis is guarded. (8) Sepsis Current Visit: Yes Status: Acute Assessment and Plan: Patient meet sepsis criteria with leukocytosis and hypoxia. Likely due to pneumonia - Antibiotics started in the emergency room. - Give low rate IVF under closely monitoring, given patient has a history of CHF - Lactate 2.9-2.8-1.8 - Follow up blood culture, UA negative. - Pulmonology and ID consult (9) Urinary retention Current Visit: Yes Status: Acute Assessment and Plan: Patient has difficulty urination. Urinary retention resolved after Maurice catheter placement. - Continue Maurice catheter - Patient has history of prostate cancer S/P radiation therapy. - Urology consult and the recommendation appreciated. DVT Prophylaxis: Heparin SC - Time Spent with Patient Total time spent is greater than 50% in coordination of care (as documented) at patient's floor/unit and/or counseling patient: 40 minutes Greater than 35 minutes Plan of Care Discussed with: family Internal Medicine: Result - Labs CBC & Chem 7: 10/12/18 05:26 10/12/18 05:26 Labs: Short CBC 10/11/18 10/12/18 Range/Units 11:53 05:26 WBC 20.5 H 27.7 H (4.3-11.1) K/mcL Hgb 12.7 L 12.0 L (12.9-16.9) g/dL Hct 37.7 35.6 L (37.5-50.1) % Plt Count 274 250 (140-400) K/mcL Neutrophils # 19.7 H 24.9 H (1.6-8.9) K/mcL BMP 10/11/18 10/12/18 11:53 05:26 Sodium 128 L 128 L Potassium 3.6 3.7 Chloride 91 L 94 L Carbon Dioxide 27 22 L BUN 32 H 33 H Creatinine 1.22 1.46 H Glucose 222 H 151 H Calcium 9.2 8.7 - ABG Interpretation ABG results: PT/INR, D-dimer PT 16.3 Seconds (9.4-12.1) H 10/09/18 13:08 - Impressions Impressions Chest X-Ray 10/12/18 07:11 IMPRESSION: CHF with residual mild pulmonary edema. D/ / Aj Pacheco MD / Aj Pacheco MD Interpreting Provider: Aj Pacheco MD Consult Discharge Plan - Plan Referrals: Corky Estrada MD [Primary Care Provider] - (1) Congestive heart failure Qualifiers: Heart failure type: diastolic Heart failure chronicity: acute on chronic Qualified Code(s): I50.33 - Acute on chronic diastolic (congestive) heart failure (4) Hypertension Qualifiers: Hypertension type: essential hypertension Qualified Code(s): I10 - Essential (primary) hypertension (5) Diabetes mellitus Qualifiers: Diabetes mellitus type: type 2 Diabetes mellitus termite treater helper insulin use: without custodial use Diabetes mellitus complication status: with unspecified complications Qualified Code(s): 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
--- NOTE | 2018-10-12 12:15 | Infectious Disease Consult ---
Date of Encounter: 10/12/18 Time of Encounter: 12:15 Assessment and Plan (1) Sepsis Status: Acute Assessment and plan: Severe sepsis: The patient had three SIRS criteria plus lactic acidosis on admission. He appears confused today, but I am not sure about his baseline given his history of CVA. Etiology unclear: PNA vs. other Continues to have fevers, tachycardia, and tachypnea. He has developed acute worsening of leukocytosis with bandemia. Blood cultures drawn 10/09/18 are NGTD x 2 sets. Urinalysis negative. CXR shows CHF with pulmonary edema, but no PNA. RIP negative. No meningeal signs. Abdominal exam benign. No back or joint pain on exam. Chronic erythematous changes noted to the BLE, but clinically not impressive for cellulitis. Recommendations: Await blood cultures to finalize. Repeat blood cultures x 2 sets. Check amylase, lipase, LFTs. Check ESR and CRP. Await recommendations from the pulmonology team Get CT of the head, chest, abdomen, and pelvis. Continue Meropenem 1 gram IV Q12H. Start Vancomycin IV. Pharmacy to dose. Goal trough ~15. Duration of treatment depends on the clinical picture. Monitor renal function and for drug toxicity and dose-adjust antibiotics. Qualifiers: Sepsis type: sepsis due to unspecified organism Qualified Code(s): A41.9 - Sepsis, unspecified organism (2) Pneumonia Status: Suspected Assessment and plan: Clinical exam concerning for PNA on exam. CXR negative x 2 for PNA. RIP negative. MRSA screen negative. S. pneumo and Legionella UAT. No sputum culture obtained. Currently on Meropenem. Qualifiers: Pneumonia type: due to unspecified organism Laterality: bilateral Lung location: lower lobe of lung Qualified Code(s): J18.1 - Lobar pneumonia, unspecified organism (3) Congestive heart failure Status: Acute Assessment and plan: CXR 10/09/18 showed mild CHF. Repeat CXR 10/12/18 shows CHF with pulmonary edema. Management per the primary, cardiology, and pulmonary teams. Qualifiers: Heart failure type: diastolic Heart failure chronicity: acute on chronic Qualified Code(s): I50.33 - Acute on chronic diastolic (congestive) heart failure (4) Acute kidney injury Status: Acute Assessment and plan: Serum creatinine up to 1.46 today. Etiology unclear: sepsis vs. other. Continue to trend. Dose-adjust antibiotics and avoid nephrotoxins as able. Strict I's and O's. (5) NSTEMI (non-ST elevated myocardial infarction) Status: Acute Assessment and plan: Troponin peaked at 11.51. Cardiology consulted. Patient declined [facility]. (6) Urinary retention Status: Acute Assessment and plan: Status post lin catheter placement. Urology consulted and plans for further workup as an outpatient. (7) Prostate cancer Status: Acute Assessment and plan: Status post radiation therapy. (8) Hypertension Status: Chronic Qualifiers: Hypertension type: essential hypertension Qualified Code(s): I10 - Essential (primary) hypertension (9) Diabetes mellitus Status: Chronic Qualifiers: Diabetes mellitus type: type 2 Diabetes mellitus irrigationist insulin use: without irrigationist use Diabetes mellitus complication status: with unspecified complications Qualified Code(s): 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 (10) CAD (coronary artery disease) Status: Chronic Qualifiers: Coronary Disease-Associated Artery/Lesion type: bypass graft [place] vs. transplanted heart: [place] heart Associated angina: without angina Qualified Code(s): I25.810 - Atherosclerosis of coronary artery bypass graft(s) without angina pectoris (11) Drug allergy, antibiotic Status: Acute Assessment and plan: Zosyn - rash Flagyl - anaphylaxis (per medical record). Infectious Disease HPI - Data of Consult Patient: new to practice Consult date: 10/12/18 Requesting Physician: Vaibhav Mejia Primary Care Provider: Corky Estrada MD - Consult Narrative Reason for consult: Sepsis History of present illness: Mr. Douglas is a 83 year old male with a past medical history of hypertension, hyperlipidemia, CAD, CHF, diabetes, prostate cancer status post radiation, and hypothyroidism. The patient was admitted to the hospital 10/09/18 for non-STEMI, CHF exacerbation, pneumonia, and sepsis. We are consulted 10/12/18 for further workup and treatment recommendations for sepsis. Briefly, the patient is a 83-year-old male with a past medical history as stated above. The patient is somewhat of a poor historian and there are currently no family at the bedside, therefore, most of the information is obtained from the medical record. Apparently, the patient presented to the emergency department with complaints of a one to 2 day history of shortness of breath with a productive cough. Upon arrival, he had a low-grade temp and was tachypneic. Had leukocytosis with neutrophilic predominance. Lactic acid level was elevated. He had a positive troponin of 6.24. Analysis was negative. Chest x- ray showed mild CHF. Blood cultures were obtained 2 sets. He was mildly elevated. He was started empirically on vancomycin and cefepime and admitted to the hospital for further evaluation. Since admission, the patient has continued to have fevers, tachycardia, tachypnea, and leukocytosis with bandemia. As evaluated by cardiology and refused a left heart catheter. He had a transthoracic echocardiogram that showed an EF of 55-60%. The patient had some issues with urinary retention and had a Lin catheter placed urology was consulted to assist with management. Palliative care was consulted to assist with goals of care discussion due to the patient not when he aggressive treatment for his positive troponin. On admission, urinary antigen tests, respiratory infectious panel, and MRSA screen were all negative. Vancomycin and azithromycin were discontinued. Over the past couple of days, the patient has developed an acute kidney injury. He continues to be febrile with a MAXIMUM TEMPERATURE of 103 in the last 24 hours. Repeat chest x-ray this morning showed CHF with pulmonary edema. Pulmonology has been consulted and we are awaiting their recommendations. He was given Zosyn yesterday and developed an itchy, erythematous rash. He was transitioned to Meropenem. CT of the chest, abdomen, and pelvis are pending completion. Currently, the patient is on Meropenem. We've been asked to evaluate and make further recommendations. During my exam today, the patient's ROS is limited due to his mental status. He is unable to recall the events leading up to his hospitalization. Currently, he denies chest pain, shortness of breath, or cough. Denies nausea, vomiting, or diarrhea. ROS otherwise unobtainable. CC: Vaibhav Mejia Past Med Surg Social Fam HX - Past Medical History Source: old records reviewed, nursing notes reviewed Medical history: coronary artery disease, CVA, diabetes, hyperlipidemia, hypertension Additional medical history: prostate cancer w/ radiation, melanoma, retina surgery, CABG x3, strokes x2 Psychiatric history: no psych history - Past Surgical History Surgical History: coronary bypass (CABG) Additional surgical history: triple bypass, prostate cancer, 2 melenomas taken off back, 4 eye eye procedures, hernia repair, bladder surgery - Social History Smoking Status: Never smoker Smokeless Tobacco Status: No Alcohol use: none Drug use: none Occupational status: retired - Family History Father Living Status: Hx Family Cardiac Disorders: Yes Mother Living Status: Hx Family Cardiac Disorders: Yes Infectious Disease-CN:Meds RX: Aspirin Enteric Coated [Aspirin EC] 325 mg PO DAILY 09/16/18 [History] RX: Atenolol [Tenormin] 12.5 mg PO DAILY 09/16/18 [History] RX: Glimepiride [Amaryl] 4 mg PO 0800 09/16/18 [History] RX: Levothyroxine [Synthroid] 50 mcg PO 0630 09/16/18 [History] RX: Meclizine [Antivert] 25 mg PO TID PRN 09/16/18 [History] RX: Oxybutynin Chloride [Ditropan Xl] 10 mg PO DAILY 09/16/18 [History] RX: Furosemide [Lasix] 20 mg PO BIDDIURETIC 30 Days #60 tablet 09/21/18 [Rx] RX: Meloxicam 15 mg PO DAILY 10/09/18 [History] Rosuvastatin [Crestor] 20 mg PO HS 10/09/18 [History] Allergy/AdvReac Type Severity Reaction Status Date / Time metronidazole [From Flagyl] Allergy Anaphylaxis Verified 07/28/15 15:18 piperacillin [From Zosyn] Allergy Itching Verified 10/11/18 17:38 tazobactam [From Zosyn] Allergy Itching Verified 10/11/18 17:38 ROS unobtainable: other (Limited due to mental status.) Exam - Constitutional Vitals: Temp Pulse Resp BP Pulse Ox 100.2 F H 116 22 139/70 98 10/12/18 11:25 10/12/18 11:25 10/12/18 11:25 10/12/18 11:25 10/12/18 11:25 General appearance: average body habitus, cooperative, no acute distress - Head Head exam: Present: atraumatic, normal inspection, normocephalic - Eye Eye exam: Present: EOMI, normal appearance, PERRL Pupils: Present: normal accommodation - ENT ENT exam: Present: mucous membranes dry - Neck Neck exam: Present: normal inspection. Absent: meningismus - Respiratory Respiratory exam: Present: CTAB. Absent: rales, respiratory distress, rhonchi, wheezes - Cardiovascular Cardiovascular exam: Present: +S1, +S2, tachycardia. Absent: irregular rhythm - GI/Abdominal GI/Abdominal exam: Present: normal bowel sounds, soft. Absent: distended, tenderness Additional comments: Lin catheter noted to be draining clear yellow urine. - Extremities Exam Extremities exam: Present: pedal edema (1+ BLE). Absent: joint swelling, normal inspection (Chronic erythematous changes noted to the BLE. ), tenderness - Neurological Exam Neurological exam: Present: altered (Awake, oriented to person and place only. Follows commands. Unable to provide PMH or HPI.), no focal deficits (GORDON x 4.) - Skin Skin exam: Present: dry, intact, rash (Erythematous rash noted to the face, neck, and upper arms.), warm Infectious Disease CN: Results - Labs CBC & Chem 7: 10/12/18 05:26 10/12/18 05:26 Cultures: Cultures 10/09/18 15:17 Legionella Antigen - Final Urine,Random-Not Preferred Streptococcus pneumoniae Antigen (M - Final 10/09/18 11:01 Blood Culture - Preliminary Peripheral Venipuncture Culture is incubating and being continuously monitored for growth. Final report to follow. 10/09/18 11:09 Blood Culture - Preliminary Peripheral Venipuncture Culture is incubating and being continuously monitored for growth. Final report to follow. Serology: Serology 10/09/18 10/09/18 10/09/18 Range/Units 16:15 16:15 15:17 Urine Color Yellow (Yellow) Urine Clarity Clear (Clear) Urine pH 6.0 (5.0-8.0) pH Units Ur Specific [place] 1.011 (1.010-1.025) Urine Protein Trace (Neg-Trace) mg/dL Urine Glucose (UA) Normal (Normal) mg/dL Urine Ketones Negative (Negative) mg/dL Urine Blood Negative (Negative) Urine Nitrite Negative (Negative) Urine Bilirubin Negative (Negative) Urine Urobilinogen Normal (Normal) mg/dL Ur Leukocyte Esterase Negative (Negative) Ur Culture Indicated? NO (NO) Nasal Screen MRSA (PCR) Negative (Negative) Chlamy pneumoniae PCR Not Detected (Not Detect) Adenovirus (PCR) Not Detected (Not Detect) B. pertussis DNA (PCR) Not Detected (Not Detect) B.parapertussis DNA PCR Not Detected (Not Detect) Coronavirus OC43 (PCR) Not Detected (Not Detect) Coronavirus HKU1 (PCR) Not Detected (Not Detect) Coronavirus 229E (PCR) Not Detected (Not Detect) Coronavirus NL63 (PCR) Not Detected (Not Detect) Human Metapneumovir PCR Not Detected (Not Detect) Influenza A (H1) PCR Not Detected (Not Detect) Influ A (H1N1/09) PCR Not Detected (Not Detect) Influenza A (H3) PCR Not Detected (Not Detect) Influenza A Untype (PCR) Not Detected (Not Detect) Influenza Type B (PCR) Not Detected (Not Detect) M.pneumoniae DNA (PCR) Not Detected (Not Detect) Parainfluenza 1 (PCR) Not Detected (Not Detect) Parainfluenza 2 (PCR) Not Detected (Not Detect) Parainfluenza 3 (PCR) Not Detected (Not Detect) Parainfluenza 4 (PCR) Not Detected (Not Detect) RSV (PCR) Not Detected (Not Detect) Entero/Rhino (PCR) Not Detected (Not Detect) Consult Discharge Plan - Plan Referrals: Corky Estrada MD [Primary Care Provider] - - Attending Attestation I have personally performed a face to face evaluation on this patient. I have reviewed and agree with the care plan. History and Exam by me shows: This is an addendum to original report dictated by Diane Callejas CNP. Please refer to his note for full details. Patient is a 3-year-old gentleman with extensive past medical history mentioned below presented to [place] with shortness of breath and was diagnosed with non-ST elevation [place] with troponin as high as 12, CHF exacerbation, pneumonia and sepsis were asked to evaluate the patient and make further recommendations. Patient currently laying in bed feeling noncoherent unable to give me much information. Son was at bedside and so was nursing staff. Patient refused apparently angiogram. Physical exam also impressive for rash on bilateral lower extremity anaerobic this is venous stasis over this is an acute rash that was not there before. Assessment and plan: Sepsis Pneumonia Congestive heart failure Acute kidney injury Non-ST elevation FL Allergic reaction to Zosyn Prostate cancer Metabolic encephalopathy Recommendations: Await blood cultures to finalize. Repeat blood cultures x 2 sets. Check amylase, lipase, LFTs. Check ESR and CRP. Await recommendations from the pulmonology team Get CT of the head, chest, abdomen, and pelvis. Continue Meropenem 1 gram IV Q12H. Start Vancomycin IV. Pharmacy to dose. Goal trough ~15. Duration of treatment depends on the clinical picture. Monitor renal function and for drug toxicity and dose-adjust antibiotics.
--- NOTE | 2018-10-12 13:02 | Pulmonology Consult Note ---
Date of Encounter: 10/12/18 Time of Encounter: 09:00 Assessment and Plan (1) Acute respiratory failure with hypoxia Current Visit: No Status: Acute Acute hypoxic respiratory failure complicated bilateral bibasilar pneumonia and diastolic congestive heart failure. To continue noninvasive ventilation when needed. Will start diuresing if he is stable and another 24 hours. As patient might be developing septic shock. Patient has acceptable oxygenation and ventilation. (2) Pneumonia Current Visit: Yes Status: Suspected Patient has bilateral bibasilar lower lobe pneumonia now with current broad- spectrum antibiotics. Patient is stable over 24 hours and there is no organism growing will consider bronchoscopy with BAL. Qualifiers: Pneumonia type: due to unspecified organism Laterality: bilateral Lung location: lower lobe of lung Qualified Code(s): J18.1 - Lobar pneumonia, unspecified organism (3) Diastolic CHF Current Visit: Yes Status: Acute To consider dialysis after treatment for assess stability. Qualifiers: Heart failure chronicity: chronic Qualified Code(s): I50.32 - Chronic diastolic (congestive) heart failure History of Present Illness Consult date: 10/12/18 Requesting physician: Renate Watters Reason for consult: pneumonia, abnormal CXR/CT Chief complaint: Feeling weak and falls History of present illness: Mr. Douglas is a 83 year old male presented to ER for weakness. Past medical history is significant for DM, hypertension, CAD S/P CABG, history of CVA, hypothyroidism, diastolic CHF, prostate cancer, melanoma. Patient was evaluated in the ER was admitted for sepsis patient was febrile chest x-ray did not show much evidence of pneumonia and did a extensive workup of plan CT scan the patient CT chest showed bilateral lower lobe consolidation patient most likely aspirating patient denies any fever or chills or any other constitutional symptoms pulmonary was evaluated for his worsening acute hypoxic respiratory failure Past Med Surg Social Fam HX - Past Medical History Medical history: coronary artery disease, CVA, diabetes, hyperlipidemia, hypertension Additional medical history: prostate cancer w/ radiation, melanoma, retina surgery, CABG x3, strokes x2 Psychiatric history: no psych history - Past Surgical History Surgical History: coronary bypass (CABG) Additional surgical history: triple bypass, prostate cancer, 2 melenomas taken off back, 4 eye eye procedures, hernia repair, bladder surgery - Social History Smoking Status: Never smoker Smokeless Tobacco Status: No Alcohol use: none Drug use: none - Family History Mother Living Status: Hx Family Cardiac Disorders: Yes Father Living Status: Hx Family Cardiac Disorders: Yes Medications and Allergies Aspirin Enteric Coated [Aspirin EC] 325 mg PO DAILY 09/16/18 [History] Atenolol [Tenormin] 12.5 mg PO DAILY 09/16/18 [History] Glimepiride [Amaryl] 4 mg PO 0800 09/16/18 [History] Levothyroxine [Synthroid] 50 mcg PO 0630 09/16/18 [History] Meclizine [Antivert] 25 mg PO TID PRN 09/16/18 [History] Oxybutynin Chloride [Ditropan Xl] 10 mg PO DAILY 09/16/18 [History] Furosemide [Lasix] 20 mg PO BIDDIURETIC 30 Days #60 tablet 09/21/18 [Rx] Meloxicam 15 mg PO DAILY 10/09/18 [History] Rosuvastatin [Crestor] 20 mg PO HS 10/09/18 [History] Allergy/AdvReac Type Severity Reaction Status Date / Time metronidazole [From Flagyl] Allergy Anaphylaxis Verified 07/28/15 15:18 piperacillin [From Zosyn] Allergy Itching Verified 10/11/18 17:38 tazobactam [From Zosyn] Allergy Itching Verified 10/11/18 17:38 All Systems: The remainder of the systems were reviewed and are negative Physical Examination Vital Signs: Vital Signs, Last 4 Hours Temp Pulse Resp BP Pulse Ox 10/12/18 11:25 100.2 F H 116 22 139/70 98 10/12/18 11:04 22 98 General appearance: alert Effort: mildly labored Auscultation: bilateral: diminished breath sounds Cardiovascular: regular rate and rhythm Gastrointestinal: normoactive bowel sounds Extremities: edema other (Altered mental status) Results - Laboratory Findings CBC and BMP: 10/12/18 05:26 10/12/18 05:26 PT/INR, D-dimer PT 16.3 Seconds (9.4-12.1) H 10/09/18 13:08 Abnormal lab findings: Abnormal lab results WBC 27.7 K/mcL (4.3-11.1) H 10/12/18 05:26 RBC 3.75 M/mcL (4.19-5.50) L 10/12/18 05:26 Hgb 12.0 g/dL (12.9-16.9) L 10/12/18 05:26 Hct 35.6 % (37.5-50.1) L 10/12/18 05:26 MPV 9.3 fL (9.4-12.4) L 10/12/18 05:26 Band Neutrophils % 30.0 % (0-4) H 10/12/18 05:26 Neutrophils # 24.9 K/mcL (1.6-8.9) H 10/12/18 05:26 Eosinophils # 1.7 K/mcL (0.0-0.6) H 10/12/18 05:26 Nucleated RBCs/100 WBC 0.1 /100 WBC (0) H 10/09/18 11:09 Toxic Granulation Present (Not Present) A 10/12/18 05:26 Toxic Vacuolation Present (Not Present) A 10/12/18 05:26 PT 16.3 Seconds (9.4-12.1) H 10/09/18 13:08 Sodium 128 mEq/L (136-145) L 10/12/18 05:26 Chloride 94 mEq/L (98-107) L 10/12/18 05:26 Carbon Dioxide 22 mEq/L (23-29) L 10/12/18 05:26 BUN 33 mg/dL (8-23) H 10/12/18 05:26 Creatinine 1.46 mg/dL (0.70-1.30) H 10/12/18 05:26 Est GFR ( Amer) 56 (> 60) L 10/12/18 05:26 Est GFR (Non-Af Amer) 46 (> 60) L 10/12/18 05:26 Glucose 151 mg/dL (70-105) H 10/12/18 05:26 POC Glucose 150 mg/dL (70-99) H 10/12/18 07:23 Calculated Osmolality 276 (280-300) L 10/12/18 05:26 Troponin I 7.01 ng/mL (< 0.04) H* 10/09/18 23:10 B-Natriuretic Peptide 152 pg/mL (Less than 100) H 10/09/18 11:09 - Clinical Findings Intake & Output: Intake & Output 10/11/18 10/12/18 10/12/18 23:59 07:59 15:59 Intake Total 310 / 310 1500 / 1500 240 / 240 Output Total 600 / 600 350 / 350 Balance -290 / -290 1150 / 1150 240 / 240 Weight 108.3 kg Consult Discharge Plan - Plan Referrals: Corky Estrada MD [Primary Care Provider] -
--- NOTE | 2018-10-12 14:46 | Event Note ---
Date of Encounter: 10/12/18 Time of Encounter: 14:30 Called and spoke with patient's regarding current clinical picture: worsening leukocytosis, fevers, abnormalities in kidney function, and concern for overall prognosis remaining guarded. Informed patient had completed CT of head and BLE. Informed Pulmonology and Infectious Disease consults being made. Also reviewed that patient's son had called and spoke with SW regarding discharge planning. reports she remains hopeful of finding source of infection and getting patient back on road to healing. Informed with followup again tomorrow via telephone if patient's remains too ill to come to bedside.
[2018-10-12 16:19] LABS: Albumin 3.3 g/dL (3.5-5.7); Albumin/Globulin Ratio 1.2 (1.1-2.2); Bilirubin,Direct 0.2 mg/dL (0.0-0.2); Bilirubin,Indirect 0.4 mg/dL (0.0-1.2); Bilirubin,Total 0.6 mg/dL (0.3-1.0); Globulin 2.7 g/dL (2.4-3.5)
[2018-10-13] MEDS: Acetaminophen 325 MG TABLET PO PRN
[2018-10-13] MEDS ORDERED: Ibuprofen 600 MG TABLET PO PRN (03:00)
[2018-10-13] MEDS: Ipratropium/Albuterol Neb 3 ML IH SCH ×4 (04:33→22:13)
[2018-10-13] MEDS: *HR* Heparin 5,000 UNIT/ML VIAL SQ SCH ×2 (06:23→17:20)
[2018-10-13] MEDS: Meropenem 1,000 MG in Water for inj. (sterile) 20 ML 10 ML IVP SCH ×2 (06:23→17:53)
[2018-10-13 07:09] LABS: Nucleated Red Blood Cells 0.1 /100 WBC (0)
[2018-10-13 07:11] LABS: Hematocrit 35.6 % (37.5-50.1); Hemoglobin 12.1 g/dL (12.9-16.9); Mean Corpuscular Volume 94.2 fL (83.0-100.0); Platelet Count 251 K/mcL (140-400); Red Blood Count 3.78 M/mcL (4.19-5.50); Red Cell Distribution Width 14.4 % (11.5-14.5)
[2018-10-13 07:28] LABS: Albumin 2.9 g/dL (3.5-5.7); Albumin/Globulin Ratio 1.2 (1.1-2.2); Bilirubin,Total 0.6 mg/dL (0.3-1.0); Globulin 2.4 g/dL (2.4-3.5); Potassium 4.1 mEq/L (3.5-5.1); Total Protein 5.3 g/dL (6.4-8.9)
[2018-10-13 08:12] LABS: Lymphocytes # 0.6 K/mcL (0.6-4.6); Neutrophils # 25.9 K/mcL (1.6-8.9); Platelet Estimate Normal (Normal); Toxic Granulation Present (Not Present); Toxic Vacuolation Present (Not Present)
[2018-10-13] MEDS: Aspirin Enteric Coated 81 MG Tablet PO SCH (08:20)
[2018-10-13] MEDS: Furosemide 20 MG TABLET PO SCH (08:20)
[2018-10-13] MEDS: Insulin LISPRO 300 UNITS/3 ML VIAL SQ SCH ×4 (08:20→20:41)
[2018-10-13] MEDS: *HR* OxyCODONE Immed Rel 5 MG TABLET PO PRN (09:33)
--- NOTE | 2018-10-13 10:00 | Infectious Disease Progress No ---
Date of Encounter: 10/13/18 Time of Encounter: 09:57 - Assessment and Plan (1) Sepsis Current Visit: Yes Status: Acute Severe sepsis: The patient had three SIRS criteria plus lactic acidosis on admission. Etiology likely PNA. Continues to have fevers, tachycardia, and tachypnea. WBC/bandemia persists. Blood cultures drawn 10/09/18 are NGTD x 2 sets. Repeat blood cultures drawn 10/12/18 are pending x 2 sets. Chronic erythematous changes noted to the BLE, worse today likely secondary to rash and edema. CT chest shows bibasilar consolidation concerning for PNA vs. aspiration. CT abdomen and pelvis negative. Amylase, lipase, LFTs WNL. Urinalysis negative. RIP negative. ESR and CRP elevated. Recommendations: Await blood cultures to finalize. Obtain sputum culture if the patient is able to provide an adequate specimen. Check peripheral smear. Supportive care for the rash per the primary team. Consider nephrology to evaluate for MATIAS. Continue Meropenem 1 gram IV Q12H. Continue Vancomycin IV. Pharmacy to dose. Goal trough ~15. Duration of treatment depends on the clinical picture. Monitor renal function and for drug toxicity and dose-adjust antibiotics. Qualifiers: Sepsis type: sepsis due to unspecified organism Qualified Code(s): A41.9 - Sepsis, unspecified organism (2) Pneumonia Current Visit: Yes Status: Suspected Clinical exam concerning for PNA. CXR negative x 2 for PNA, but CT chest shows bibasilar consolidation concerning for PNA vs. aspiration. RIP negative. MRSA screen negative. S. pneumo and Legionella UAT. No sputum culture obtained. G[employer] S[employer] ASSAYER evaluation noted. Concern for aspiration given the patient's confusion and history of CVA. Pulmonology consulted and following. Currently on Meropenem and Vancomycin. Qualifiers: Pneumonia type: due to unspecified organism Laterality: bilateral Lung location: lower lobe of lung Qualified Code(s): J18.1 - Lobar pneumonia, unspecified organism (3) Congestive heart failure Current Visit: No Status: Acute CXR 10/09/18 showed mild CHF. Repeat CXR 10/12/18 shows CHF with pulmonary edema. Management per the primary and cardiology teams. Qualifiers: Heart failure type: diastolic Heart failure chronicity: acute on chronic Qualified Code(s): I50.33 - Acute on chronic diastolic (congestive) heart fail ure (4) Acute kidney injury Current Visit: Yes Status: Acute Serum creatinine up to 1.66 today. Etiology unclear: sepsis vs. other. Continue to trend. Dose-adjust antibiotics and avoid nephrotoxins as able. Strict I's and O's. Consider nephrology to evaluate. (5) NSTEMI (non-ST elevated myocardial infarction) Current Visit: Yes Status: Acute Troponin peaked at 11.51. Cardiology consulted. Patient declined [facility]. (6) Urinary retention Current Visit: Yes Status: Acute Status post lin catheter placement. Urology consulted and plans for further workup as an outpatient. (7) Prostate cancer Current Visit: Yes Status: Acute Status post radiation therapy. (8) Hypertension Current Visit: No Status: Chronic Qualifiers: Hypertension type: essential hypertension Qualified Code(s): I10 - Ess ential (primary) hypertension (9) Diabetes mellitus Current Visit: No Status: Chronic Qualifiers: Diabetes mellitus type: type 2 Diabetes mellitus watermelon harvesting supervisor insulin use: [facility] watermelon harvesting supervisor use Diabetes mellitus complication status: with unspecified complications Qualified Code(s): 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 (10) CAD (coronary artery disease) Current Visit: No Status: Chronic Qualifiers: Coronary Disease-Associated Artery/Lesion type: bypass graft [place] vs. transplanted heart: [place] heart Associated angina: without angina Qualified Code(s): I25.810 - Atherosclerosis of coronary artery bypass graft(s) without angina pectoris (11) Drug allergy, antibiotic Current Visit: Yes Status: Acute Zosyn - rash Flagyl - anaphylaxis (per medical record). (12) Rash Current Visit: Yes Status: Acute Location: anterior/posterior trunk, BUE, BLE Etiology unclear: drug rash vs. other. Supportive care per the primary team. - Subjective Interval history: Patient seen and examined with [id number] at the bedside. States up until the patient's last hospitalization, he was ambulatory and driving and living at home with his . Has been in rehab facility since discharge from here. Had progressively worsening weakness and confusion and shortness of breath last week and was transferred to the ER. States patient's reports he had been having some confusion in the mornings prior to his previous admission that resolved throughout the day. During my exam today, the patient states he feels generally unwell. He complains of pain to the BLE. Denies shortness of breath, cough, or nausea. Denies abdominal pain. Lin catheter remains patent. States his appetite is not very good but he is hungry. Denies discomfort associated with rash at this time. Infect Dis PN-Objective Data - Labs CBC & Chem 7: 10/14/18 05:48 10/14/18 05:48 Labs: Laboratory Results - last 24 hr 10/12/18 10/12/18 10/12/18 11:27 15:47 16:24 WBC RBC Hgb Hct MCV MCH MCHC RDW Plt Count MPV Immature Gran % Seg Neutrophils % Band Neutrophils % Lymphocytes % Monocytes % Eosinophils % Basophils % Metamyelocytes % Myelocytes % Neutrophils # Lymphocytes # Monocytes # Eosinophils # Basophils # Nucleated RBCs/100 WBC Toxic Granulation Toxic Vacuolation Platelet Estimate ESR Sodium Potassium Chloride Carbon Dioxide BUN Creatinine Est GFR ( Amer) Est GFR (Non-Af Amer) BUN/Creatinine Ratio Glucose POC Glucose 146 H 140 H Calculated Osmolality Calcium Total Bilirubin 0.6 Direct Bilirubin 0.2 Indirect Bilirubin 0.4 AST 50 H ALT 24 Alkaline Phosphatase 115 H C-Reactive Protein 267 H Serum Total Protein 6.0 L Albumin 3.3 L Globulin 2.7 Albumin/Globulin Ratio 1.2 Amylase 21 L Lipase 13 10/12/18 10/13/18 10/13/18 19:59 06:53 06:53 WBC 27.6 H RBC 3.78 L Hgb 12.1 L Hct 35.6 L MCV 94.2 MCH 32.0 MCHC 34.0 RDW 14.4 Plt Count 251 MPV 10.0 Immature Gran % Test Not Performed Seg Neutrophils % 58.0 Band Neutrophils % 36.0 H Lymphocytes % 2.0 Monocytes % Test Not Performed Eosinophils % Test Not Performed Basophils % Test Not Performed Metamyelocytes % 2.0 H Myelocytes % 2.0 H Neutrophils # 25.9 H Lymphocytes # 0.6 Monocytes # Test Not Performed Eosinophils # Test Not Performed Basophils # Test Not Performed Nucleated RBCs/100 WBC 0.1 H Toxic Granulation Present A Toxic Vacuolation Present A Platelet Estimate Normal ESR Sodium 129 L Potassium 4.1 Chloride 94 L Carbon Dioxide 21 L BUN 45 H Creatinine 1.66 H Est GFR ( Amer) 48 L Est GFR (Non-Af Amer) 40 L BUN/Creatinine Ratio 27 H Glucose 161 H POC Glucose 135 H Calculated Osmolality 283 Calcium 9.0 Total Bilirubin 0.6 Direct Bilirubin Indirect Bilirubin AST 59 H ALT 26 Alkaline Phosphatase 115 H C-Reactive Protein Serum Total Protein 5.3 L Albumin 2.9 L Globulin 2.4 Albumin/Globulin Ratio 1.2 Amylase Lipase 10/13/18 10/13/18 06:53 07:19 WBC RBC Hgb Hct MCV MCH MCHC RDW Plt Count MPV Immature Gran % Seg Neutrophils % Band Neutrophils % Lymphocytes % Monocytes % Eosinophils % Basophils % Metamyelocytes % Myelocytes % Neutrophils # Lymphocytes # Monocytes # Eosinophils # Basophils # Nucleated RBCs/100 WBC Toxic Granulation Toxic Vacuolation Platelet Estimate ESR 62 H Sodium Potassium Chloride Carbon Dioxide BUN Creatinine Est GFR ( Amer) Est GFR (Non-Af Amer) BUN/Creatinine Ratio Glucose POC Glucose 158 H Calculated Osmolality Calcium Total Bilirubin Direct Bilirubin Indirect Bilirubin AST ALT Alkaline Phosphatase C-Reactive Protein Serum Total Protein Albumin Globulin Albumin/Globulin Ratio Amylase Lipase Cultures: Cultures 10/12/18 15:47 Blood Culture - Preliminary Peripheral Venipuncture Culture is incubating and being continuously monitored for growth. Final report to follow. 10/12/18 15:47 Blood Culture - Preliminary Peripheral Venipuncture Culture is incubating and being continuously monitored for growth. Final report to follow. 10/09/18 15:17 Legionella Antigen - Final Urine,Random-Not Preferred Streptococcus pneumoniae Antigen (M - Final 10/09/18 11:01 Blood Culture - Preliminary Peripheral Venipuncture Culture is incubating and being continuously monitored for growth. Final report to follow. 10/09/18 11:09 Blood Culture - Preliminary Peripheral Venipuncture Culture is incubating and being continuously monitored for growth. Final report to follow. Serology 10/09/18 10/09/18 10/09/18 Range/Units 16:15 16:15 15:17 Urine Color Yellow (Yellow) Urine Clarity Clear (Clear) Urine pH 6.0 (5.0-8.0) pH Units Ur Specific [place] 1.011 (1.010-1.025) Urine Protein Trace (Neg-Trace) mg/dL Urine Glucose (UA) Normal (Normal) mg/dL Urine Ketones Negative (Negative) mg/dL Urine Blood Negative (Negative) Urine Nitrite Negative (Negative) Urine Bilirubin Negative (Negative) Urine Urobilinogen Normal (Normal) mg/dL Ur Leukocyte Esterase Negative (Negative) Ur Culture Indicated? NO (NO) Nasal Screen MRSA (PCR) Negative (Negative) Chlamy pneumoniae PCR Not Detected (Not Detect) Adenovirus (PCR) Not Detected (Not Detect) B. pertussis DNA (PCR) Not Detected (Not Detect) B.parapertussis DNA PCR Not Detected (Not Detect) Coronavirus OC43 (PCR) Not Detected (Not Detect) Coronavirus HKU1 (PCR) Not Detected (Not Detect) Coronavirus 229E (PCR) Not Detected (Not Detect) Coronavirus NL63 (PCR) Not Detected (Not Detect) Human Metapneumovir PCR Not Detected (Not Detect) Influenza A (H1) PCR Not Detected (Not Detect) Influ A (H1N1/09) PCR Not Detected (Not Detect) Influenza A (H3) PCR Not Detected (Not Detect) Influenza A Untype (PCR) Not Detected (Not Detect) Influenza Type B (PCR) Not Detected (Not Detect) M.pneumoniae DNA (PCR) Not Detected (Not Detect) Parainfluenza 1 (PCR) Not Detected (Not Detect) Parainfluenza 2 (PCR) Not Detected (Not Detect) Parainfluenza 3 (PCR) Not Detected (Not Detect) Parainfluenza 4 (PCR) Not Detected (Not Detect) RSV (PCR) Not Detected (Not Detect) Entero/Rhino (PCR) Not Detected (Not Detect) - Impressions Impressions Chest CT 10/12/18 11:57 IMPRESSION: 1. Dense bibasilar airspace opacities may represent aspiration or developing pneumonia. 2. No significant abnormalities in the abdomen or pelvis. D/ / Aj Pacheco MD / Aj Pacheco MD Interpreting Provider: Aj Pacheco MD Abdomen/Pelvis CT 10/12/18 11:58 IMPRESSION: 1. Dense bibasilar airspace opacities may represent aspiration or developing pneumonia. 2. No significant abnormalities in the abdomen or pelvis. D/ / Aj Pacheco MD / Aj Pacheco MD Interpreting Provider: Aj Pacheco MD Head CT 10/12/18 12:21 IMPRESSION: No acute intracranial abnormality is identified, with similar appearing chronic small vessel ischemic changes as seen on the previous examination. The study is somewhat limited however secondary to significant motion at the skull base and inferior aspect of the middle cranial fossa. D/ / Mook Henry MD / Mook Henry MD Interpreting Provider: Mook Henry MD Lower Extremity CT 10/12/18 12:24 IMPRESSION: 1. Subcutaneous edema involving the bilateral lower extremities which is most pronounced distally. Correlate clinically for cellulitis. No subcutaneous gas or organized drainable fluid collections are identified. 2. No acute osseous abnormality evident. No CT evidence for osteomyelitis. 3. Severe atherosclerotic disease. 4. Aneurysmal dilatation at the right superficial femoral artery and popliteal artery junction measuring 2.6 cm in greatest axial dimension. 5. Severe advanced right hip osteoarthritis. 6. Moderate to severe left hip osteoarthritis. 7. Akxg-gw-zigjupwy tricompartmental osteoarthritis of the bilateral knees with small left and trace right knee effusion. 8. Circumferential wall thickening of the distal colon and rectum with a moderate amount of stool present. Findings can be seen in the setting of stercoral colitis. D/ / Martínez Galdamez MD / Martínez Galdamez MD Interpreting Provider: Martínez Galdamez MD Lower Extremity CT 10/12/18 12:24 IMPRESSION: 1. Subcutaneous edema involving the bilateral lower extremities which is most pronounced distally. Correlate clinically for cellulitis. No subcutaneous gas or organized drainable fluid collections are identified. 2. No acute osseous abnormality evident. No CT evidence for osteomyelitis. 3. Severe atherosclerotic disease. 4. Aneurysmal dilatation at the right superficial femoral artery and popliteal artery junction measuring 2.6 cm in greatest axial dimension. 5. Severe advanced right hip osteoarthritis. 6. Moderate to severe left hip osteoarthritis. 7. Hxfp-ey-ctabpenj tricompartmental osteoarthritis of the bilateral knees with small left and trace right knee effusion. 8. Circumferential wall thickening of the distal colon and rectum with a moderate amount of stool present. Findings can be seen in the setting of stercoral colitis. D/ / Martínez Galdamez MD / Martínez Galdamez MD Interpreting Provider: Martínez Galdamez MD Exam - Constitutional Vitals: Temp Pulse Resp BP Pulse Ox 98.2 F 98 19 108/63 93 10/13/18 07:15 10/13/18 08:43 10/13/18 07:15 10/13/18 07:15 10/13/18 07:15 General appearance: average body habitus, cooperative, no acute distress - Head Head exam: Present: atraumatic, normal inspection, normocephalic - Eye Eye exam: Present: EOMI, normal appearance, PERRL Pupils: Present: normal accommodation - ENT ENT exam: Present: mucous membranes dry - Neck Neck exam: Present: normal inspection - Respiratory Respiratory exam: Present: CTAB. Absent: rales, respiratory distress, rhonchi, wheezes - Cardiovascular Cardiovascular exam: Present: +S1, +S2, tachycardia. Absent: irregular rhythm - GI/Abdominal GI/Abdominal exam: Present: distended, normal bowel sounds, soft. Absent: tenderness Additional comments: Lin catheter noted to be draining clear yellow urine. - Extremities Exam Extremities exam: Present: pedal edema (2+ LLE, 1+ RLE). Absent: joint swelling, normal inspection (Erythematous macular rash noted to the BUE and BLE. Chronic venous stasis erythema noted to the BLE. Dressing to the LLE C/D/I.), tenderness - Neurological Exam Neurological exam: Present: alert, no focal deficits (GORDON x 4.). Absent: oriented X3 (Oriented to person and place.) - Skin Skin exam: Present: intact, rash (Macular erythematous rash noted to the BUE, BL E, and anterior/posterior trunk.), warm Consult Discharge Plan - Plan Referrals: Corky Estrada MD [Primary Care Provider] - - Attending Attestation I have personally performed a face to face evaluation on this patient. I have reviewed and agree with the care plan. History and Exam by me shows: Assessment and plan: Sepsis Pneumonia Congestive heart failure Acute kidney injury Non-ST elevation [place] Allergic reaction to Zosyn Prostate cancer Metabolic encephalopathy REcommendations: continue vancomycin and meropenem for now prognosis poor kidney function gettign worse
--- NOTE | 2018-10-13 10:13 | Internal Med Progress Note ---
Hospitalist Progress Note - Encounter Date of Encounter: 10/13/18 Time of Encounter: 09:42 - Subjective Interval History: Patient seen and examined this morning at bedside. No acute overnight events. Had fever overnight max of 103. Patient has been on and off confused. Complaints of left leg pain. Daughter in law at bedside. - Exam Vitals: Temp Pulse Resp BP Pulse Ox 98.2 F 98 19 108/63 93 10/13/18 07:15 10/13/18 08:43 10/13/18 07:15 10/13/18 07:15 10/13/18 07:15 Exam: General: In no acute distress. Respiratory exam: b/l basel crackles and rhonchi. no accessory muscle use. Cardiovascular exam: tachycardic, +S1, +S2. no murmur, gallop, rubs. GI/Abdominal exam: Obese, Non-tender, Non-distended, soft, no peritoneal signs. Extremities exam: 1+ pedal edema b/l, L Leg calf tenderness associated with redness and swelling. Neurological exam: CN II-XII intact, AO X1, no focal deficits. Confused Skin exam: Diffuse maculopapular rash on chest and arm. - Assessment and Plan (1) Congestive heart failure Current Visit: No Status: Acute (2) Elevated troponin level Current Visit: Yes Status: Acute (3) DVT prophylaxis Current Visit: No Status: Acute (4) Hypertension Current Visit: No Status: Chronic (5) Diabetes mellitus Current Visit: No Status: Chronic (6) Acute respiratory failure with hypoxia Current Visit: No Status: Acute (7) Pneumonia Current Visit: Yes Status: Suspected (8) Sepsis Current Visit: Yes Status: Acute (9) Urinary retention Current Visit: Yes Status: Acute - Summary of Assessment and Plan Summary of Assessment and Plan: ARF, hypoxia, Sepsis, Pneumonia - Source of infection unclear. Patient with cough, fever, leukocytosis, bibasilar opacities with suspcicion of pneumonia. Also with some signs of cellulitis on chronic dermatitis on LLE. MRSA, Legionella and Strep Pneumo Ags, Respiratory viral panel negative. Blood culture negative so far. - Initially started on vancomycin/zosyn/azithromycin which was deescalated. Had worsening of hypoxia and leukocytosis. Abx broaded to Vancomycina and meropenem. continue to have fever.pulmonology and ID following. appreciate recommendation. - Now with skin rash which could be related to antibiotic allergy. - May need bronchoscopy. Congestive heart failure - h/o diastolic CHF. CXR with pulmonary edema. BNP 152. - was continued on lasix and also on IVF. Renal function worsening. Will stop lasix and ibuprofen and monitor BMP. will stop IVF as well and monitor. Will consider Nephrology if continues to worsen. - Cont Strict I and O. Currently maintaining oxygenation. Will need close monitoring. Will use bipap if needed. Elevated troponin level - Troponin peaked at 11. s/p heparin drip. h/o CAD S/P CABG. EKG with ST depression in anterolateral leads - Cardiology consult now signned off. - Patient declined [facility], would like medical management. - c/w aspirin, plavix, beta gonzales, and statin. Diabetes mellitus - not on insulin at home. - c/w SSI and accuchecks Urinary retention - s/p Lin catheter placement and urology consult - h/o prostate cancer S/P radiation therapy. - Urology consulted and the recommendation appreciated. c/w lin. cystoscopy as outpatient. Goals of care disccusion - currently confused - Palliative care following. recommendations appreciated. DVT Prophylaxis: - Heparin SC - Time Spent with Patient Total time spent is greater than 50% in coordination of care (as documented) at patient's floor/unit and/or counseling patient: Internal Medicine: Result - Labs CBC & Chem 7: 10/13/18 06:53 10/13/18 06:53 Labs: Short CBC 10/13/18 Range/Units 06:53 WBC 27.6 H (4.3-11.1) K/mcL Hgb 12.1 L (12.9-16.9) g/dL Hct 35.6 L (37.5-50.1) % Plt Count 251 (140-400) K/mcL Neutrophils # 25.9 H (1.6-8.9) K/mcL BMP 10/13/18 06:53 Sodium 129 L Potassium 4.1 Chloride 94 L Carbon Dioxide 21 L BUN 45 H Creatinine 1.66 H Glucose 161 H Calcium 9.0 Liver Function 10/12/18 10/13/18 Range/Units 15:47 06:53 Total Bilirubin 0.6 0.6 (0.3-1.0) mg/dL Direct Bilirubin 0.2 (0.0-0.2) mg/dL AST 50 H 59 H (13-39) Units/L ALT 24 26 (7-52) Units/L Alkaline Phosphatase 115 H 115 H (34-104) Units/L Albumin 3.3 L 2.9 L (3.5-5.7) g/dL - ABG Interpretation ABG results: PT/INR, D-dimer PT 16.3 Seconds (9.4-12.1) H 10/09/18 13:08 - Impressions Impressions Chest CT 10/12/18 11:57 IMPRESSION: 1. Dense bibasilar airspace opacities may represent aspiration or developing pneumonia. 2. No significant abnormalities in the abdomen or pelvis. D/ / Aj Pacheco MD / Aj Pacheco MD Interpreting Provider: Aj Pacheco MD Abdomen/Pelvis CT 10/12/18 11:58 IMPRESSION: 1. Dense bibasilar airspace opacities may represent aspiration or developing pneumonia. 2. No significant abnormalities in the abdomen or pelvis. D/ / Aj Pacheco MD / Aj Pacheco MD Interpreting Provider: Aj Pacheco MD Head CT 10/12/18 12:21 IMPRESSION: No acute intracranial abnormality is identified, with similar appearing chronic small vessel ischemic changes as seen on the previous examination. The study is somewhat limited however secondary to significant motion at the skull base and inferior aspect of the middle cranial fossa. D/ / Mook Henry MD / Mook Henry MD Interpreting Provider: Mook Henry MD Lower Extremity CT 10/12/18 12:24 IMPRESSION: 1. Subcutaneous edema involving the bilateral lower extremities which is most pronounced distally. Correlate clinically for cellulitis. No subcutaneous gas or organized drainable fluid collections are identified. 2. No acute osseous abnormality evident. No CT evidence for osteomyelitis. 3. Severe atherosclerotic disease. 4. Aneurysmal dilatation at the right superficial femoral artery and popliteal artery junction measuring 2.6 cm in greatest axial dimension. 5. Severe advanced right hip osteoarthritis. 6. Moderate to severe left hip osteoarthritis. 7. Pemc-gt-xjxakght tricompartmental osteoarthritis of the bilateral knees with small left and trace right knee effusion. 8. Circumferential wall thickening of the distal colon and rectum with a moderate amount of stool present. Findings can be seen in the setting of stercoral colitis. D/ / Martínez Galdamez MD / Martínez Galdamez MD Interpreting Provider: Martínez Galdamez MD Lower Extremity CT 10/12/18 12:24 IMPRESSION: 1. Subcutaneous edema involving the bilateral lower extremities which is most pronounced distally. Correlate clinically for cellulitis. No subcutaneous gas or organized drainable fluid collections are identified. 2. No acute osseous abnormality evident. No CT evidence for osteomyelitis. 3. Severe atherosclerotic disease. 4. Aneurysmal dilatation at the right superficial femoral artery and popliteal artery junction measuring 2.6 cm in greatest axial dimension. 5. Severe advanced right hip osteoarthritis. 6. Moderate to severe left hip osteoarthritis. 7. Bzlu-km-gowcggpv tricompartmental osteoarthritis of the bilateral knees with small left and trace right knee effusion. 8. Circumferential wall thickening of the distal colon and rectum with a moderate amount of stool present. Findings can be seen in the setting of stercoral colitis. D/ / Martínez Galdamez MD / Martínez Galdamez MD Interpreting Provider: Martínez Galdamez MD Consult Discharge Plan - Plan Referrals: Corky Estrada MD [Primary Care Provider] - ____ (1) Congestive heart failure Qualifiers: Heart failure type: diastolic Heart failure chronicity: acute on chronic Q ualified Code(s): I50.33 - Acute on chronic diastolic (congestive) heart failure (4) Hypertension Qualifiers: Hypertension type: essential hypertension Qualified Code(s): I10 - Essential (primary) hypertension (5) Diabetes mellitus Qualifiers: Diabetes mellitus type: type 2 Diabetes mellitus residential insulin use: without residential use Diabetes mellitus complication status: with unspecified complications Qualified Code(s): 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
--- NOTE | 2018-10-13 11:39 | Pulmonology Progress Note ---
Date of Encounter: 10/13/18 Time of Encounter: 09:00 Assessment and Plan (1) Acute respiratory failure with hypoxia Current Visit: No Status: Acute Most likely due to aspiration pneumonia complicated by diastolic heart failure patient is stable we will start containing diuresis. (2) Pneumonia Current Visit: Yes Status: Suspected CT chest shows signs of of aspiration pneumonia we will get a full formal swallowing evaluation. Antibiotic choice according to infectious disease and d e-escalation according to clinical response. Qualifiers: Pneumonia type: due to unspecified organism Laterality: bilateral Lung l ocation: lower lobe of lung Qualified Code(s): J18.1 - Lobar pneumonia, unspecified organism (3) Diastolic CHF Current Visit: Yes Status: Acute To start diuresis for diastolic heart failure. Qualifiers: Heart failure chronicity: chronic Qualified Code(s): I50.32 - Chronic diastolic (congestive) heart failure Subjective Principal diagnosis: Aspiration pneumonia Interval history: Patient is here for an acute hypoxic respiratory secondary to aspiration pneumonia patient is slowly getting better. Patient is on broad-spectrum antibiotics. Objective PUL Vital signs: Last Vital Signs Temp 98.4 F 10/13/18 10:55 Pulse 94 10/13/18 10:55 Resp 20 10/13/18 10:55 BP 115/72 10/13/18 10:55 Pulse Ox 94 10/13/18 10:55 General appearance: no acute distress Effort: mildly labored Auscultation: bilateral: diminished breath sounds (At the bases), rales (Minimal scattered rales) Cardiovascular: regular rate and rhythm Gastrointestinal: normoactive bowel sounds Extremities: edema Musculoskeletal: no deformities normal mental status, non-focal exam Results - Laboratory Findings CBC and BMP: 10/13/18 06:53 10/13/18 06:53 PT/INR, D-dimer PT 16.3 Seconds (9.4-12.1) H 10/09/18 13:08 Abnormal lab findings: Abnormal lab results WBC 27.6 K/mcL (4.3-11.1) H 10/13/18 06:53 RBC 3.78 M/mcL (4.19-5.50) L 10/13/18 06:53 Hgb 12.1 g/dL (12.9-16.9) L 10/13/18 06:53 Hct 35.6 % (37.5-50.1) L 10/13/18 06:53 Band Neutrophils % 36.0 % (0-4) H 10/13/18 06:53 Metamyelocytes % 2.0 % (0) H 10/13/18 06:53 Myelocytes % 2.0 % (0) H 10/13/18 06:53 Neutrophils # 25.9 K/mcL (1.6-8.9) H 10/13/18 06:53 Nucleated RBCs/100 WBC 0.1 /100 WBC (0) H 10/13/18 06:53 Toxic Granulation Present (Not Present) A 10/13/18 06:53 Toxic Vacuolation Present (Not Present) A 10/13/18 06:53 ESR 70 mm/hr (0-10) H 10/13/18 10:45 PT 16.3 Seconds (9.4-12.1) H 10/09/18 13:08 Sodium 129 mEq/L (136-145) L 10/13/18 06:53 Chloride 94 mEq/L (98-107) L 10/13/18 06:53 Carbon Dioxide 21 mEq/L (23-29) L 10/13/18 06:53 BUN 45 mg/dL (8-23) H 10/13/18 06:53 Creatinine 1.66 mg/dL (0.70-1.30) H 10/13/18 06:53 Est GFR ( Amer) 48 (> 60) L 10/13/18 06:53 Est GFR (Non-Af Amer) 40 (> 60) L 10/13/18 06:53 BUN/Creatinine Ratio 27 (6-26) H 10/13/18 06:53 Glucose 161 mg/dL (70-105) H 10/13/18 06:53 POC Glucose 158 mg/dL (70-99) H 10/13/18 07:19 AST 59 Units/L (13-39) H 10/13/18 06:53 Alkaline Phosphatase 115 Units/L (34-104) H 10/13/18 06:53 Troponin I 7.01 ng/mL (< 0.04) H* 10/09/18 23:10 C-Reactive Protein 267 mg/L (Less than 10) H 10/12/18 15:47 B-Natriuretic Peptide 152 pg/mL (Less than 100) H 10/09/18 11:09 Serum Total Protein 5.3 g/dL (6.4-8.9) L 10/13/18 06:53 Albumin 2.9 g/dL (3.5-5.7) L 10/13/18 06:53 Amylase 21 Units/L (29-103) L 10/12/18 15:47 - Microbiology Findings Microbiology Findings: Microbiology, Last 48 Hours 10/12/18 15:47 Blood Culture - Preliminary Peripheral Venipuncture Culture is incubating and being continuously monitored for growth. Final report to follow. 10/12/18 15:47 Blood Culture - Preliminary Peripheral Venipuncture Culture is incubating and being continuously monitored for growth. Final report to follow. - Clinical Findings Intake & Output: Intake & Output 10/12/18 10/13/18 10/13/18 23:59 07:59 15:59 Intake Total 1860 / 1860 360 / 360 Output Total 225 / 225 550 / 550 Balance 1635 / 1635 -540 / -540 360 / 360 Consult Discharge Plan - Plan Referrals: Corky Estrada MD [Primary Care Provider] -
[2018-10-13] MEDS ORDERED: traMADol 50 MG TABLET PO PRN (11:45)
--- NOTE | 2018-10-13 12:37 | Palliative Progress Note ---
Date of Encounter: 10/13/18 Time of Encounter: 11:00 - Assessment and plan (1) Goals of care, counseling/discussion Current Visit: Yes Status: Acute Assessment and plan: Met with patient regarding goals of care regarding continued treatment. [facility], pending approval. Discussed CODE STATUS with patient, since he was awake, alert, and able to participate in conversation. Patient agrees with his to remain FULL CODE. Explained overall guarded prognosis with continued infection, he explains he has to do everything as he loves his "so very much." (2) Chest congestion Current Visit: Yes Status: Acute Assessment and plan: Pulmonology and Infectious Disease consulted. Recommendations appreciated. (3) Weakness Current Visit: Yes Status: Acute Assessment and plan: PT/OT recommendations appreciated, recommend SNF at discharge. (4) Congestive heart failure Current Visit: No Status: Acute Qualifiers: Heart failure type: diastolic Heart failure chronicity: acute on chronic Qualified Code(s): I50.33 - Acute on chronic diastolic (congestive) heart failure (5) Elevated troponin level Current Visit: Yes Status: Acute Assessment and plan: Cardiology signed off as patient refused [facility]. (6) LUDA (obstructive sleep apnea) Current Visit: No Status: Suspected (7) Pneumonia Current Visit: Yes Status: Suspected Assessment and plan: Patient being treated for developing Pneumonia noted in CT scan. Qualifiers: Pneumonia type: due to unspecified organism Laterality: bilateral Lung location: lower lobe of lung Qualified Code(s): J18.1 - Lobar pneumonia, un specified organism (8) NSTEMI (non-ST elevated myocardial infarction) Current Visit: Yes Status: Acute (9) Sepsis Current Visit: Yes Status: Acute Assessment and plan: WBC 27.6. Neutrophils increased to 25.9. Antibiotics per ID recommendations. Qualifiers: Sepsis type: sepsis due to unspecified organism Qualified Code(s): A41.9 - Sepsis, unspecified organism (10) Urinary retention Current Visit: Yes Status: Acute Assessment and plan: Urology to followup with patient outpatient. Maurice remains intact. (11) Prostate cancer Current Visit: Yes Status: Acute (12) Leg pain, bilateral Current Visit: Yes Status: Acute Assessment and plan: Patient complains of bilateral Lower extremity pain, secondary to cellulitis noted in CT of BLE. Infectious disease recommendations regarding treatment appreciated. Ordered Tramadol PRN for continued moderate/severe leg pain. Patient had taken dose of Oxycodone, reports no relief. - Time Spent With Patient Total time spent is greater than 50% in coordination of care (as documented) at patient's floor/unit and/or counseling patient: - Subjective Interval history: Patient lying in bed with eyes open, alert and oriented upon arrival for assessment. Patient denies dyspnea, nausea and vomiting. Patient reports continued anxiety and increased bilateral leg pain, rated as severe on pain scale, patient had difficulty when inquired to rate on numeric rating scale. Patient's grandson and his present at bedside. - Constitutional Vitals: Abnormal lab results WBC 27.6 K/mcL (4.3-11.1) H 10/13/18 06:53 RBC 3.78 M/mcL (4.19-5.50) L 10/13/18 06:53 Hgb 12.1 g/dL (12.9-16.9) L 10/13/18 06:53 Hct 35.6 % (37.5-50.1) L 10/13/18 06:53 Band Neutrophils % 36.0 % (0-4) H 10/13/18 06:53 Metamyelocytes % 2.0 % (0) H 10/13/18 06:53 Myelocytes % 2.0 % (0) H 10/13/18 06:53 Neutrophils # 25.9 K/mcL (1.6-8.9) H 10/13/18 06:53 Nucleated RBCs/100 WBC 0.1 /100 WBC (0) H 10/13/18 06:53 Toxic Granulation Present (Not Present) A 10/13/18 06:53 Toxic Vacuolation Present (Not Present) A 10/13/18 06:53 ESR 70 mm/hr (0-10) H 10/13/18 10:45 PT 16.3 Seconds (9.4-12.1) H 10/09/18 13:08 Sodium 129 mEq/L (136-145) L 10/13/18 06:53 Chloride 94 mEq/L (98-107) L 10/13/18 06:53 Carbon Dioxide 21 mEq/L (23-29) L 10/13/18 06:53 BUN 45 mg/dL (8-23) H 10/13/18 06:53 Creatinine 1.66 mg/dL (0.70-1.30) H 10/13/18 06:53 Est GFR ( Amer) 48 (> 60) L 10/13/18 06:53 Est GFR (Non-Af Amer) 40 (> 60) L 10/13/18 06:53 BUN/Creatinine Ratio 27 (6-26) H 10/13/18 06:53 Glucose 161 mg/dL (70-105) H 10/13/18 06:53 POC Glucose 198 mg/dL (70-99) H 10/13/18 11:00 AST 59 Units/L (13-39) H 10/13/18 06:53 Alkaline Phosphatase 115 Units/L (34-104) H 10/13/18 06:53 Troponin I 7.01 ng/mL (< 0.04) H* 10/09/18 23:10 C-Reactive Protein 267 mg/L (Less than 10) H 10/12/18 15:47 B-Natriuretic Peptide 152 pg/mL (Less than 100) H 10/09/18 11:09 Serum Total Protein 5.3 g/dL (6.4-8.9) L 10/13/18 06:53 Albumin 2.9 g/dL (3.5-5.7) L 10/13/18 06:53 Amylase 21 Units/L (29-103) L 10/12/18 15:47 General appearance: Present: cooperative, no acute distress - Head Head exam: Present: atraumatic, normal inspection - Eye Eye exam: Present: EOMI, normal appearance, PERRL. Absent: periorbital swelling, periorbital tenderness Pupils: Present: normal accommodation - ENT ENT exam: Present: mucous membranes dry, normal external ear exam - Neck Neck exam: Present: full ROM, normal inspection - Respiratory Respiratory exam: Present: CTAB. Absent: accessory muscle use - Cardiovascular Cardiovascular exam: Present: +S1, +S2 - GI/Abdominal GI/Abdominal exam: Present: hypoactive bowel sounds, soft. Absent: tenderness - Rectal Rectal exam: Present: deferred - Extremities Exam Extremities exam: Present: pedal edema. Absent: normal inspection (rednesss and inflammation noted. ) - Back Exam Back exam: Present: normal inspection - Neurological Exam Neurological exam: Present: alert, oriented X3, strengths equal and symetr throughout. Absent: altered - Psychiatric Psychiatric exam: Present: flat affect - Skin Skin exam: Present: warm Palliative Quality Palliative Quality: Screen for Code Status: Yes, Screen for Goals of Care: Yes, Screen for Pain: Yes, If Pain Regimen Started, Initiate Bowel Regimen: NA, Screen for Nausea/Vomitting: Yes Code Status: 10/09/18 14:36 Resuscitation Status: Active [RES] Routine Comment: Resuscitation Status: Full Code - Labs CBC & Chem 7: 10/13/18 06:53 10/13/18 06:53 Labs: Laboratory Results - last 24 hr 10/12/18 10/12/18 10/12/18 11:27 15:47 16:24 WBC RBC Hgb Hct MCV MCH MCHC RDW Plt Count MPV Immature Gran % Seg Neutrophils % Band Neutrophils % Lymphocytes % Monocytes % Eosinophils % Basophils % Metamyelocytes % Myelocytes % Neutrophils # Lymphocytes # Monocytes # Eosinophils # Basophils # Nucleated RBCs/100 WBC Toxic Granulation Toxic Vacuolation Platelet Estimate ESR Sodium Potassium Chloride Carbon Dioxide BUN Creatinine Est GFR ( Amer) Est GFR (Non-Af Amer) BUN/Creatinine Ratio Glucose POC Glucose 146 H 140 H Calculated Osmolality Calcium Total Bilirubin 0.6 Direct Bilirubin 0.2 Indirect Bilirubin 0.4 AST 50 H ALT 24 Alkaline Phosphatase 115 H C-Reactive Protein 267 H Serum Total Protein 6.0 L Albumin 3.3 L Globulin 2.7 Albumin/Globulin Ratio 1.2 Amylase 21 L Lipase 13 10/12/18 10/13/18 10/13/18 19:59 06:53 06:53 WBC 27.6 H RBC 3.78 L Hgb 12.1 L Hct 35.6 L MCV 94.2 MCH 32.0 MCHC 34.0 RDW 14.4 Plt Count 251 MPV 10.0 Immature Gran % Test Not Performed Seg Neutrophils % 58.0 Band Neutrophils % 36.0 H Lymphocytes % 2.0 Monocytes % Test Not Performed Eosinophils % Test Not Performed Basophils % Test Not Performed Metamyelocytes % 2.0 H Myelocytes % 2.0 H Neutrophils # 25.9 H Lymphocytes # 0.6 Monocytes # Test Not Performed Eosinophils # Test Not Performed Basophils # Test Not Performed Nucleated RBCs/100 WBC 0.1 H Toxic Granulation Present A Toxic Vacuolation Present A Platelet Estimate Normal ESR Sodium 129 L Potassium 4.1 Chloride 94 L Carbon Dioxide 21 L BUN 45 H Creatinine 1.66 H Est GFR ( Amer) 48 L Est GFR (Non-Af Amer) 40 L BUN/Creatinine Ratio 27 H Glucose 161 H POC Glucose 135 H Calculated Osmolality 283 Calcium 9.0 Total Bilirubin 0.6 Direct Bilirubin Indirect Bilirubin AST 59 H ALT 26 Alkaline Phosphatase 115 H C-Reactive Protein Serum Total Protein 5.3 L Albumin 2.9 L Globulin 2.4 Albumin/Globulin Ratio 1.2 Amylase Lipase 10/13/18 10/13/18 10/13/18 06:53 07:19 10:45 WBC RBC Hgb Hct MCV MCH MCHC RDW Plt Count MPV Immature Gran % Seg Neutrophils % Band Neutrophils % Lymphocytes % Monocytes % Eosinophils % Basophils % Metamyelocytes % Myelocytes % Neutrophils # Lymphocytes # Monocytes # Eosinophils # Basophils # Nucleated RBCs/100 WBC Toxic Granulation Toxic Vacuolation Platelet Estimate ESR 62 H 70 H Sodium Potassium Chloride Carbon Dioxide BUN Creatinine Est GFR ( Amer) Est GFR (Non-Af Amer) BUN/Creatinine Ratio Glucose POC Glucose 158 H Calculated Osmolality Calcium Total Bilirubin Direct Bilirubin Indirect Bilirubin AST ALT Alkaline Phosphatase C-Reactive Protein Serum Total Protein Albumin Globulin Albumin/Globulin Ratio Amylase Lipase 10/13/18 11:00 WBC RBC Hgb Hct MCV MCH MCHC RDW Plt Count MPV Immature Gran % Seg Neutrophils % Band Neutrophils % Lymphocytes % Monocytes % Eosinophils % Basophils % Metamyelocytes % Myelocytes % Neutrophils # Lymphocytes # Monocytes # Eosinophils # Basophils # Nucleated RBCs/100 WBC Toxic Granulation Toxic Vacuolation Platelet Estimate ESR Sodium Potassium Chloride Carbon Dioxide BUN Creatinine Est GFR ( Amer) Est GFR (Non-Af Amer) BUN/Creatinine Ratio Glucose POC Glucose 198 H Calculated Osmolality Calcium Total Bilirubin Direct Bilirubin Indirect Bilirubin AST ALT Alkaline Phosphatase C-Reactive Protein Serum Total Protein Albumin Globulin Albumin/Globulin Ratio Amylase Lipase - Impressions Impressions Chest CT 10/12/18 11:57 IMPRESSION: 1. Dense bibasilar airspace opacities may represent aspiration or developing pneumonia. 2. No significant abnormalities in the abdomen or pelvis. D/ / Aj Pacheco MD / Aj Pacheco MD Interpreting Provider: Aj Pacheco MD Abdomen/Pelvis CT 10/12/18 11:58 IMPRESSION: 1. Dense bibasilar airspace opacities may represent aspiration or developing pneumonia. 2. No significant abnormalities in the abdomen or pelvis. D/ / Aj Pacheco MD / Aj Pacheco MD Interpreting Provider: Aj Pacheco MD Head CT 10/12/18 12:21 IMPRESSION: No acute intracranial abnormality is identified, with similar appearing chronic small vessel ischemic changes as seen on the previous examination. The study is somewhat limited however secondary to significant motion at the skull base and inferior aspect of the middle cranial fossa. D/ / Mook Henry MD / Mook Henry MD Interpreting Provider: Mook Henry MD Lower Extremity CT 10/12/18 12:24 IMPRESSION: 1. Subcutaneous edema involving the bilateral lower extremities which is most pronounced distally. Correlate clinically for cellulitis. No subcutaneous gas or organized drainable fluid collections are identified. 2. No acute osseous abnormality evident. No CT evidence for osteomyelitis. 3. Severe atherosclerotic disease. 4. Aneurysmal dilatation at the right superficial femoral artery and popliteal artery junction measuring 2.6 cm in greatest axial dimension. 5. Severe advanced right hip osteoarthritis. 6. Moderate to severe left hip osteoarthritis. 7. [id number] tricompartmental osteoarthritis of the bilateral knees with small left and trace right knee effusion. 8. Circumferential wall thickening of the distal colon and rectum with a moderate amount of stool present. Findings can be seen in the setting of stercoral colitis. D/ / Martínez Galdamez MD / Martínez Galdamez MD Interpreting Provider: Martínez Galdamez MD Lower Extremity CT 10/12/18 12:24 IMPRESSION: 1. Subcutaneous edema involving the bilateral lower extremities which is most pronounced distally. Correlate clinically for cellulitis. No subcutaneous gas or organized drainable fluid collections are identified. 2. No acute osseous abnormality evident. No CT evidence for osteomyelitis. 3. Severe atherosclerotic disease. 4. Aneurysmal dilatation at the right superficial femoral artery and popliteal artery junction measuring 2.6 cm in greatest axial dimension. 5. Severe advanced right hip osteoarthritis. 6. Moderate to severe left hip osteoarthritis. 7. [id number] tricompartmental osteoarthritis of the bilateral knees with small left and trace right knee effusion. 8. Circumferential wall thickening of the distal colon and rectum with a moderate amount of stool present. Findings can be seen in the setting of stercoral colitis. D/ / Martínez Galdamez MD / Martínez Galdamez MD Interpreting Provider: Martínez Galdamez MD - ABG Interpretation ABG results: PT/INR, D-dimer PT 16.3 Seconds (9.4-12.1) H 10/09/18 13:08 Palliative Scale - Palliative Performance Scale How ambulatory is this patient?: Mainly in bed What is patient's level of activity and evidence of disease?: Unable to do any work, Extensive disease How much self-care assistance does patient require?: Mainly assistance How much oral intake does the patient have?: Normal or reduced What is this patient's level of consciousness?: Full or drowsy with or without confusion Palliative Performance Score: 50 % Consult Discharge Plan - Plan Referrals: Corky Estrada MD [Primary Care Provider] -
[2018-10-14] MEDS: Acetaminophen 325 MG TABLET PO PRN (01:15)
[2018-10-14] MEDS: Ipratropium/Albuterol Neb 3 ML IH SCH ×4 (03:17→22:05)
[2018-10-14] MEDS: Insulin LISPRO 300 UNITS/3 ML VIAL SQ SCH ×4 (06:10→23:03)
[2018-10-14] MEDS: Meropenem 1,000 MG in Water for inj. (sterile) 20 ML 10 ML IVP SCH ×2 (06:19→18:07)
[2018-10-14] MEDS: *HR* Heparin 5,000 UNIT/ML VIAL SQ SCH ×2 (06:24→18:11)
[2018-10-14 06:28] LABS: Hemoglobin 12.4 g/dL (12.9-16.9); Mean Corpuscular HGB Conc 34.4 g/dL (31.6-35.5); Mean Corpuscular Hemoglobin 31.7 pg (28.0-33.3); Mean Corpuscular Volume 92.1 fL (83.0-100.0); Mean Platelet Volume 10.4 fL (9.4-12.4); Nucleated Red Blood Cells 0.1 /100 WBC (0); Platelet Count 265 K/mcL (140-400); Red Blood Count 3.91 M/mcL (4.19-5.50); Red Cell Distribution Width 14.6 % (11.5-14.5)
[2018-10-14 06:53] LABS: Calcium 9.2 mg/dL (8.6-10.3); Potassium 4.7 mEq/L (3.5-5.1)
[2018-10-14 07:13] LABS: Eosinophils # 0.5 K/mcL (0.0-0.6); Lymphocytes # 0.3 K/mcL (0.6-4.6); Monocytes # 0.7 K/mcL (0.0-1.3); Neutrophils # 23.2 K/mcL (1.6-8.9); Platelet Estimate Normal (Normal); Toxic Granulation Present (Not Present)
[2018-10-14 07:14] LABS: Toxic Vacuolation Present (Not Present)
--- NOTE | 2018-10-14 09:27 | Electrocardiograph Report ---
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 Chart reviewed, patient seen by cardiology Electronically Signed On 10-14-2018 9:25:34 EDT by Jose Manuel Bethea
--- NOTE | 2018-10-14 09:52 | Internal Med Progress Note ---
Hospitalist Progress Note - Encounter Date of Encounter: 10/14/18 Time of Encounter: 09:31 - Subjective Interval History: Patient seen and examined this morning at bedside. Patient somewhat drowsy and confused compared to yesterday. Appears to be slightly to keep length. Arousable and following simple commands. - Exam Vitals: Temp Pulse Resp BP Pulse Ox 97.7 F 98 19 134/64 94 10/14/18 07:07 10/14/18 07:07 10/14/18 07:07 10/14/18 07:07 10/14/18 07:07 Exam: General: In mild respiratory distress. Respiratory exam: b/l basel crackles. no accessory muscle use. Cardiovascular exam: tachycardic, +S1, +S2. no murmur, gallop, rubs. GI/Abdominal exam: Obese, Non-tender, Non-distended, soft, no peritoneal signs. Extremities exam: 2+ pedal edema b/l LE and some in UE. L Leg redness and sw elling. Some Rt leg Neurological exam: CN II-XII intact, AO X1, no focal deficits. Confused Skin exam: Diffuse maculopapular rash on chest, arm and legs. minimally improved - Assessment and Plan (1) Congestive heart failure Current Visit: No Status: Acute (2) Elevated troponin level Current Visit: Yes Status: Acute (3) DVT prophylaxis Current Visit: No Status: Acute (4) Hypertension Current Visit: No Status: Chronic (5) Diabetes mellitus Current Visit: No Status: Chronic (6) Acute respiratory failure with hypoxia Current Visit: No Status: Acute (7) Pneumonia Current Visit: Yes Status: Suspected (8) Sepsis Current Visit: Yes Status: Acute (9) Urinary retention Current Visit: Yes Status: Acute - Summary of Assessment and Plan Summary of Assessment and Plan: ARF, hypoxia, Sepsis, Pneumonia - Source of infection unclear. Possible aspiration pneumonia vs cellulitis on chronic dermatitis on LLE. - MRSA, Legionella and Strep Pneumo Ags, Respiratory viral panel negative. Blood culture negative so far. - CT abdomen pelvis, Urinalysis, - Initially started on vancomycin/zosyn/azithromycin. Developed reaction to zosyn. Abx broaded to Vancomycin and meropenem. - pulmonology and ID following. appreciate recommendation. To get barium swallow study. - Now with skin rash which could be related to drug allergy. LLE with superficial thrombosis. Altered mental status - Head CT unremarkable - likely metabolic encephelopathy realated to sepsis. May have some uremic componenet - Was received meclizine, oxycodone, oxybutynin which may contribute to it. - continue antibiotics as above for now. Congestive heart failure - h/o diastolic CHF. CXR with pulmonary edema. BNP 152. - EF of 55-60. mild DD. - was continued on lasix and also on IVF. Renal function worsened. lasix, ibupr ofen and IVF stopped - hold diuresis for now. Will consult nephrology to assist in volume management given MATIAS - Cont Strict I and O. - Will use bipap based on ABG MATIAS - worsening renal function with lasix, NSAID - hold diuresis and NSAID. Obtain urine studies and urine eosinophils. has lin in place - will consult Nephrology for further assistance Skin rash - Developed maculopapular rash after receiving zosyn in ER. Also with blanching rash on chest and on LE on baseline chronic dermatitis changes - Will consult dermatology for need for skin biopsy. NSTEMI - Troponin peaked at 11. s/p heparin drip. h/o CAD S/P CABG. EKG with ST depression in anterolateral leads - Cardiology consult now signned off. - Patient declined [facility], would like medical management. - c/w aspirin, plavix, beta gonzales, and statin. Hyponatremia - likely related to CHF - Diuresis on hold for now given MATIAS. Diabetes mellitus - not on insulin at home. - c/w SSI and accuchecks Urinary retention - s/p Lin catheter placement and urology consult - h/o prostate cancer S/P radiation therapy. - Urology consulted and the recommendation appreciated. c/w lin. cystoscopy as outpatient. Goals of care disccusion - currently confused - Palliative care following. recommendations appreciated. DVT Prophylaxis: - Heparin SC - Time Spent with Patient Total time spent is greater than 50% in coordination of care (as documented) at patient's floor/unit and/or counseling patient: Internal Medicine: Result - Labs CBC & Chem 7: 10/14/18 05:48 10/14/18 05:48 Labs: Short CBC 10/14/18 Range/Units 05:48 WBC 24.7 H (4.3-11.1) K/mcL Hgb 12.4 L (12.9-16.9) g/dL Hct 36.0 L (37.5-50.1) % Plt Count 265 (140-400) K/mcL Neutrophils # 23.2 H (1.6-8.9) K/mcL BMP 10/14/18 05:48 Sodium 128 L Potassium 4.7 Chloride 91 L Carbon Dioxide 24 BUN 64 H Creatinine 2.13 H Glucose 118 H Calcium 9.2 - ABG Interpretation ABG results: PT/INR, D-dimer PT 16.3 Seconds (9.4-12.1) H 10/09/18 13:08 Consult Discharge Plan - Plan Referrals: Corky Estrada MD [Primary Care Provider] - (1) Congestive heart failure Qualifiers: Heart failure type: diastolic Heart failure chronicity: acute on chronic Qualified Code(s): I50.33 - Acute on chronic diastolic (congestive) heart failure (4) Hypertension Qualifiers: Hypertension type: essential hypertension Qualified Code(s): I10 - Essential (primary) hypertension (5) Diabetes mellitus Qualifiers: Diabetes mellitus type: type 2 Diabetes mellitus care home insulin use: without ferry terminal agent use Diabetes mellitus complication status: with unspecified complications Qualified Code(s): 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
[2018-10-14] MEDS ORDERED: *HR* OxyCODONE Immed Rel 5 MG TABLET PO PRN (10:31)
[2018-10-14] MEDS ORDERED: Eucerin Cream 57 GM TUBE TP PRN (10:33)
--- NOTE | 2018-10-14 11:21 | Palliative Progress Note ---
Date of Encounter: 10/14/18 Time of Encounter: 10:00 - Assessment and plan (1) Leg pain, bilateral Current Visit: Yes Status: Acute Assessment and plan: Patient with generalized pain to bilateral lower legs. Legs red with skin tears and dressings. Slight weeping from left lower leg. DVTs have been ruled out. - Stop Ultram - Increased Oxycodone to 4 hrs PRN - Benadryl for itching (2) Itching Current Visit: Yes Status: Acute Assessment and plan: Patient with bright red generalized rash to body. Patient with hx CVA. Attempts to itch arms and rubs legs on bed. - Add Benadryl elixer - Eucerin Cream for dryness - Dermatology consult pending (3) Goals of care, counseling/discussion Current Visit: Yes Status: Acute Assessment and plan: Called Jessica. Updated on patients status. Explained that patient has multiple health issues. Jessica has been ill and is now fighting laryngitis. Son Pankaj is also involved in patients care. I explained that patient doesn't desire cardiac interventions that patient remains FULL CODE. I explained code statuses and need for clarification of goals for CPR/intubation. Jessica states that patient has been confused on and off for past month and states that he has some dementia. I educated her on DNR types and she will discuss further with alfonso Lira. may possibly visit today if she feels better. PC team will continue to meet and discuss with family on GOC. (4) Rash Current Visit: Yes Status: Acute (5) CHF exacerbation Current Visit: Yes Status: Acute Qualifiers: Heart failure type: unspecified Qualified Code(s): I50.9 - Heart failure, unspecified (6) Sepsis Current Visit: Yes Status: Acute Qualifiers: Sepsis type: sepsis due to unspecified organism Qualified Code(s): A41.9 - Sepsis, unspecified organism (7) Pneumonia Current Visit: Yes Status: Suspected Qualifiers: Pneumonia type: due to unspecified organism Laterality: bilateral Lung location: lower lobe of lung Qualified Code(s): J18.1 - Lobar pneumonia, unspecified organism - Time Spent With Patient Total time spent is greater than 50% in coordination of care (as documented) at patient's floor/unit and/or counseling patient: 25 - 35 minutes - Subjective Interval history: Patient in bed. Opens eyes to name. Oriented to name only. Nursing reports patient confused overnight and this AM. Patient with bright red papular rash to face, anterior/posterior torso and bilateral legs. Underarms and folds of underarms red. Patient attempting to itch face. - Constitutional Vitals: Abnormal lab results WBC 24.7 K/mcL (4.3-11.1) H 10/14/18 05:48 RBC 3.91 M/mcL (4.19-5.50) L 10/14/18 05:48 Hgb 12.4 g/dL (12.9-16.9) L 10/14/18 05:48 Hct 36.0 % (37.5-50.1) L 10/14/18 05:48 RDW 14.6 % (11.5-14.5) H 10/14/18 05:48 Band Neutrophils % 19.0 % (0-4) H 10/14/18 05:48 Metamyelocytes % 2.0 % (0) H 10/13/18 06:53 Myelocytes % 2.0 % (0) H 10/13/18 06:53 Neutrophils # 23.2 K/mcL (1.6-8.9) H 10/14/18 05:48 Lymphocytes # 0.3 K/mcL (0.6-4.6) L 10/14/18 05:48 Nucleated RBCs/100 WBC 0.1 /100 WBC (0) H 10/14/18 05:48 Toxic Granulation Present (Not Present) A 10/14/18 05:48 Toxic Vacuolation Present (Not Present) A 10/14/18 05:48 ESR 70 mm/hr (0-10) H 10/13/18 10:45 PT 16.3 Seconds (9.4-12.1) H 10/09/18 13:08 Sodium 128 mEq/L (136-145) L 10/14/18 05:48 Chloride 91 mEq/L (98-107) L 10/14/18 05:48 BUN 64 mg/dL (8-23) H 10/14/18 05:48 Creatinine 2.13 mg/dL (0.70-1.30) H 10/14/18 05:48 Est GFR ( Amer) 36 (> 60) L 10/14/18 05:48 Est GFR (Non-Af Amer) 30 (> 60) L 10/14/18 05:48 BUN/Creatinine Ratio 30 (6-26) H 10/14/18 05:48 Glucose 118 mg/dL (70-105) H 10/14/18 05:48 POC Glucose 171 mg/dL (70-99) H 10/13/18 16:16 AST 59 Units/L (13-39) H 10/13/18 06:53 Alkaline Phosphatase 115 Units/L (34-104) H 10/13/18 06:53 Troponin I 7.01 ng/mL (< 0.04) H* 10/09/18 23:10 C-Reactive Protein 267 mg/L (Less than 10) H 10/12/18 15:47 B-Natriuretic Peptide 152 pg/mL (Less than 100) H 10/09/18 11:09 Serum Total Protein 5.3 g/dL (6.4-8.9) L 10/13/18 06:53 Albumin 2.9 g/dL (3.5-5.7) L 10/13/18 06:53 Amylase 21 Units/L (29-103) L 10/12/18 15:47 - Head Head exam: Present: atraumatic Additional comments: Face red with papular rash - Eye Eye exam: Present: PERRL - ENT ENT exam: Present: mucous membranes moist - Neck Additional comments: red - Respiratory Respiratory exam: Present: decreased breath sounds - Expanded Respiratory Exam Location: decreased breath sounds: Left, Right, Lower, rales: Left, Right, Upper (few scattered) - Cardiovascular Cardiovascular exam: Present: RRR, +S1, +S2 - Expanded Cardiovascular Exam Peripheral pulses: 1+: Femoral (L) PM, Femoral (R) PM, Posterior Tibialis (L), Posterior Tibialis (R), Dorsalis Pedis (L) PM, Dorsalis Pedis (R) PM, 2+: Carotid (L) PM, Carotid (R) PM, Radial (L), Radial (R) - GI/Abdominal GI/Abdominal exam: Present: normal bowel sounds, soft Additional comments: Maurice cath draining clear yellow urine - Extremities Exam Extremities exam: Present: calf tenderness, pedal edema Additional comments: Bilateral lower legs red, tender to touch. Negative for DVTs. - Neurological Exam Neurological exam: Present: altered - Psychiatric Psychiatric exam: Present: flat affect - Skin Skin exam: Present: dry, erythema, rash (bright red generalized rash), urticaria, warm - Expanded Skin Exam Distribution of rash: Present: generalized Description of rash: Present: erythematous, papular, tenderness Palliative Quality Palliative Quality: Screen for Code Status: Yes, Screen for Goals of Care: Yes, Screen for Pain: Yes, If Pain Regimen Started, Initiate Bowel Regimen: NA, Screen for Nausea/Vomitting: Yes Code Status: 10/09/18 14:36 Resuscitation Status: Active [RES] Routine Comment: Resuscitation Status: Full Code - Labs CBC & Chem 7: 10/14/18 05:48 10/14/18 05:48 Labs: Laboratory Results - last 24 hr 10/13/18 10/13/18 10/13/18 10:45 11:00 16:16 WBC RBC Hgb Hct MCV MCH MCHC RDW Plt Count MPV Seg Neutrophils % Band Neutrophils % Lymphocytes % Monocytes % Eosinophils % Neutrophils # Lymphocytes # Monocytes # Eosinophils # Nucleated RBCs/100 WBC Toxic Granulation Toxic Vacuolation Platelet Estimate ESR 70 H Sodium Potassium Chloride Carbon Dioxide BUN Creatinine Est GFR ( Amer) Est GFR (Non-Af Amer) BUN/Creatinine Ratio Glucose POC Glucose 198 H 171 H Calculated Osmolality Calcium 10/14/18 10/14/18 05:48 05:48 WBC 24.7 H RBC 3.91 L Hgb 12.4 L Hct 36.0 L MCV 92.1 MCH 31.7 MCHC 34.4 RDW 14.6 H Plt Count 265 MPV 10.4 Seg Neutrophils % 75.0 Band Neutrophils % 19.0 H Lymphocytes % 1.0 Monocytes % 3.0 Eosinophils % 2.0 Neutrophils # 23.2 H Lymphocytes # 0.3 L Monocytes # 0.7 Eosinophils # 0.5 Nucleated RBCs/100 WBC 0.1 H Toxic Granulation Present A Toxic Vacuolation Present A Platelet Estimate Normal ESR Sodium 128 L Potassium 4.7 Chloride 91 L Carbon Dioxide 24 BUN 64 H Creatinine 2.13 H Est GFR ( Amer) 36 L Est GFR (Non-Af Amer) 30 L BUN/Creatinine Ratio 30 H Glucose 118 H POC Glucose Calculated Osmolality 285 Calcium 9.2 - ABG Interpretation ABG results: PT/INR, D-dimer PT 16.3 Seconds (9.4-12.1) H 10/09/18 13:08 Palliative Scale - Palliative Performance Scale How ambulatory is this patient?: Mainly in bed What is patient's level of activity and evidence of disease?: Unable to do any work, Extensive disease How much self-care assistance does patient require?: Mainly assistance How much oral intake does the patient have?: Normal or reduced What is this patient's level of consciousness?: Full or drowsy with or without confusion Palliative Performance Score: 50 % Consult Discharge Plan - Plan Referrals: Corky Estrada MD [Primary Care Provider] -
[2018-10-14] MEDS: Aspirin Enteric Coated 81 MG Tablet PO SCH (11:37)
--- NOTE | 2018-10-14 12:04 | Infectious Disease Progress No ---
Date of Encounter: 10/14/18 Time of Encounter: 11:25 - Assessment and Plan (1) Sepsis Status: Acute Severe sepsis: The patient had three SIRS criteria plus lactic acidosis on admission. Etiology likely PNA. Continues to have fevers, tachycardia, and tachypnea. WBC/bandemia persists. Blood cultures drawn 10/09/18 are NGTD x 2 sets. Repeat blood cultures drawn 10/12/18 are no growth to date x 2 sets. Chronic erythematous changes noted to the BLE, unchanged today. CT chest shows bibasilar consolidation concerning for PNA vs. aspiration. CT abdomen and pelvis negative. Amylase, lipase, LFTs WNL. Urinalysis negative. RIP negative. ESR and CRP elevated. Recommendations: Await blood cultures to finalize. Obtain sputum culture if the patient is able to provide an adequate specimen. Supportive care for the rash per the primary team. Consider nephrology to evaluate for MATIAS. Continue Meropenem 1 gram IV Q12H. Continue Vancomycin IV. Pharmacy to dose. Goal trough ~15. Duration of treatment depends on the clinical picture. Monitor renal function and for drug toxicity and dose-adjust antibiotics. Qualifiers: Sepsis type: sepsis due to unspecified organism Qualified Code(s): A41.9 - Sepsis, unspecified organism (2) Pneumonia Status: Suspected Clinical exam concerning for PNA. CXR negative x 2 for PNA, but CT chest shows bibasilar consolidation concerning for PNA vs. aspiration. RIP negative. MRSA screen negative. S. pneumo and Legionella UAT. No sputum culture obtained. RN GYN evaluation noted. Concern for aspiration given the patient's confusion and history of CVA. MBS scheduled for later today. Pulmonology consulted and following. Currently on Meropenem and Vancomycin. Qualifiers: Pneumonia type: due to unspecified organism Laterality: bilateral Lung location: lower lobe of lung Qualified Code(s): J18.1 - Lobar pneumonia, unspecified organism (3) Encephalopathy Status: Acute Etiology unclear: Sepsis vs. uremia vs. other. Patient more lethargic, but no headache or neck pain or meningeal signs noted. CT head negative. (4) Congestive heart failure Status: Acute CXR 10/09/18 showed mild CHF. Repeat CXR 10/12/18 shows CHF with pulmonary edema. Management per the primary and cardiology teams. Qualifiers: Heart failure type: diastolic Heart failure chronicity: acute on chronic Qualified Code(s): I50.33 - Acute on chronic diastolic (congestive) heart failure (5) Acute kidney injury Status: Acute Serum creatinine up to 2.16 today. Etiology unclear: sepsis vs. other. Continue to trend. Dose-adjust antibiotics and avoid nephrotoxins as able. Strict I's and O's. Consider nephrology to evaluate. (6) NSTEMI (non-ST elevated myocardial infarction) Status: Acute Troponin peaked at 11.51. Cardiology consulted. Patient declined [facility]. (7) Urinary retention Status: Acute Status post lin catheter placement. Urology consulted and plans for further workup as an outpatient. (8) Prostate cancer Status: Acute Status post radiation therapy. (9) Hypertension Status: Chronic Qualifiers: Hypertension type: essential hypertension Qualified Code(s): I10 - Essential (primary) hypertension (10) Diabetes mellitus Status: Chronic Qualifiers: Diabetes mellitus type: type 2 Diabetes mellitus intermodal dispatcher insulin use: without intermodal dispatcher use Diabetes mellitus complication status: with unspecified complications Qualified Code(s): E11.8 - Type 2 diabetes mellitus with uns pecified complications (11) CAD (coronary artery disease) Status: Chronic Qualifiers: Coronary Disease-Associated Artery/Lesion type: bypass graft [place] vs. transplanted heart: [place] heart Associated angina: without angina Qualified Code(s): I25.810 - Atherosclerosis of coronary artery bypass graft(s) without angina pectoris (12) Drug allergy, antibiotic Status: Acute Zosyn - rash Flagyl - anaphylaxis (per medical record). (13) Rash Status: Acute Location: anterior/posterior trunk, BUE, BLE Etiology unclear: drug rash vs. other. Dermatology consult pending. Supportive care per the primary team. - Subjective Interval history: Patient seen and examined with [id number] at the bedside. States patient's mental status is worse today and he is more lethargic. Reports minimal verbal interaction with the patient today. Review of systems minimal from the patient, but he does wake up long enough to tell me that he is not having any pain, but he is just very tired. Infect Dis PN-Objective Data - Labs CBC & Chem 7: 10/14/18 05:48 10/14/18 05:48 Labs: Laboratory Results - last 24 hr 10/13/18 10/13/18 10/14/18 16:16 20:01 05:48 WBC 24.7 H RBC 3.91 L Hgb 12.4 L Hct 36.0 L MCV 92.1 MCH 31.7 MCHC 34.4 RDW 14.6 H Plt Count 265 MPV 10.4 Seg Neutrophils % 75.0 Band Neutrophils % 19.0 H Lymphocytes % 1.0 Monocytes % 3.0 Eosinophils % 2.0 Neutrophils # 23.2 H Lymphocytes # 0.3 L Monocytes # 0.7 Eosinophils # 0.5 Nucleated RBCs/100 WBC 0.1 H Toxic Granulation Present A Toxic Vacuolation Present A Platelet Estimate Normal Sodium Potassium Chloride Carbon Dioxide BUN Creatinine Est GFR ( Amer) Est GFR (Non-Af Amer) BUN/Creatinine Ratio Glucose POC Glucose 171 H 191 H Calculated Osmolality Calcium 10/14/18 10/14/18 05:48 06:07 WBC RBC Hgb Hct MCV MCH MCHC RDW Plt Count MPV Seg Neutrophils % Band Neutrophils % Lymphocytes % Monocytes % Eosinophils % Neutrophils # Lymphocytes # Monocytes # Eosinophils # Nucleated RBCs/100 WBC Toxic Granulation Toxic Vacuolation Platelet Estimate Sodium 128 L Potassium 4.7 Chloride 91 L Carbon Dioxide 24 BUN 64 H Creatinine 2.13 H Est GFR ( Amer) 36 L Est GFR (Non-Af Amer) 30 L BUN/Creatinine Ratio 30 H Glucose 118 H POC Glucose 118 H Calculated Osmolality 285 Calcium 9.2 Cultures: Cultures 10/12/18 15:47 Blood Culture - Preliminary Peripheral Venipuncture Culture is incubating and being continuously monitored for growth. Final report to follow. 10/12/18 15:47 Blood Culture - Preliminary Peripheral Venipuncture Culture is incubating and being continuously monitored for growth. Final report to follow. 10/09/18 15:17 Legionella Antigen - Final Urine,Random-Not Preferred Streptococcus pneumoniae Antigen (M - Final 10/09/18 11:01 Blood Culture - Preliminary Peripheral Venipuncture Culture is incubating and being continuously monitored for growth. Final report to follow. 10/09/18 11:09 Blood Culture - Preliminary Peripheral Venipuncture Culture is incubating and being continuously monitored for growth. Final report to follow. Serology 10/09/18 10/09/18 10/09/18 Range/Units 16:15 16:15 15:17 Urine Color Yellow (Yellow) Urine Clarity Clear (Clear) Urine pH 6.0 (5.0-8.0) pH Units Ur Specific [place] 1.011 (1.010-1.025) Urine Protein Trace (Neg-Trace) mg/dL Urine Glucose (UA) Normal (Normal) mg/dL Urine Ketones Negative (Negative) mg/dL Urine Blood Negative (Negative) Urine Nitrite Negative (Negative) Urine Bilirubin Negative (Negative) Urine Urobilinogen Normal (Normal) mg/dL Ur Leukocyte Esterase Negative (Negative) Ur Culture Indicated? NO (NO) Nasal Screen MRSA (PCR) Negative (Negative) Chlamy pneumoniae PCR Not Detected (Not Detect) Adenovirus (PCR) Not Detected (Not Detect) B. pertussis DNA (PCR) Not Detected (Not Detect) B.parapertussis DNA PCR Not Detected (Not Detect) Coronavirus OC43 (PCR) Not Detected (Not Detect) Coronavirus HKU1 (PCR) Not Detected (Not Detect) Coronavirus 229E (PCR) Not Detected (Not Detect) Coronavirus NL63 (PCR) Not Detected (Not Detect) Human Metapneumovir PCR Not Detected (Not Detect) Influenza A (H1) PCR Not Detected (Not Detect) Influ A (H1N1/09) PCR Not Detected (Not Detect) Influenza A (H3) PCR Not Detected (Not Detect) Influenza A Untype (PCR) Not Detected (Not Detect) Influenza Type B (PCR) Not Detected (Not Detect) M.pneumoniae DNA (PCR) Not Detected (Not Detect) Parainfluenza 1 (PCR) Not Detected (Not Detect) Parainfluenza 2 (PCR) Not Detected (Not Detect) Parainfluenza 3 (PCR) Not Detected (Not Detect) Parainfluenza 4 (PCR) Not Detected (Not Detect) RSV (PCR) Not Detected (Not Detect) Entero/Rhino (PCR) Not Detected (Not Detect) Exam - Constitutional Vitals: Temp Pulse Resp BP Pulse Ox 100.8 F H 98 18 109/65 94 10/14/18 11:14 10/14/18 11:14 10/14/18 11:14 10/14/18 11:14 10/14/18 11:14 General appearance: no acute distress, obese, no cooperative - Head Head exam: Present: atraumatic, normal inspection, normocephalic - Eye Eye exam: Present: EOMI, normal appearance, PERRL Pupils: Present: normal accommodation - ENT ENT exam: Present: mucous membranes dry - Neck Neck exam: Present: normal inspection. Absent: meningismus, tenderness - Respiratory Respiratory exam: Present: CTAB. Absent: rales, respiratory distress, rhonchi, wheezes - Cardiovascular Cardiovascular exam: Present: RRR, +S1, +S2 - GI/Abdominal GI/Abdominal exam: Present: distended, firm, normal bowel sounds. Absent: tenderness Additional comments: Lin catheter noted to be draining clear yellow urine. - Extremities Exam Extremities exam: Present: pedal edema (2+ left lower extremity, 1+ right lower extremity). Absent: joint swelling, normal inspection (Chronic venous stasis changes noted to the bilateral lower extremities. Left lower extremity dressing is clean, dry, and intact.), tenderness - Neurological Exam Neurological exam: Present: altered (Lethargic, awakens to painful stimuli. Attempts to follow some commands. ), no focal deficits (Moves all extremities 4 on command.) - Skin Skin exam: Present: dry, intact, rash (Erythematous confluent rash noted to the head, neck, face, and trunk. Macular rash noted to the extremities 4.), warm Consult Discharge Plan - Plan Referrals: Corky Estrada MD [Primary Care Provider] - - Attending Attestation I have personally performed a face to face evaluation on this patient. I have reviewed and agree with the care plan. History and Exam by me shows: Patient seen and examined. Rash worse. abdomen distended; patient does not appear comfortable. he told the son earlier that he is having abdominal pain but unable to tell me any info Assessment and plan: 1.Sepsis 2.Bacteremia with MRSA source likely chest port. 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
[2018-10-14] MEDS ORDERED: E-Z-PAQUE (BARIUM SULF) SUSP 1 BOTTLE PO ONE (13:17)
[2018-10-14] MEDS ORDERED: E-Z-HD (BARIUM SULF) SUSPENSION PO ONE (13:17)
[2018-10-14 13:51] LABS: ABG Base Excess -1 mEq/L (-2 to 3); ABG HCO3 22 mEq/L (21-27); ABG Oxygen Saturation 95 % (95-98); ABG PCO2 30 mmHg (35-45); ABG PH 7.47 pH Units (7.32-7.45); ABG PO2 68 mmHg (85-104); ABG TCO2 23 mEq/L (20-26)
--- NOTE | 2018-10-14 15:50 | Nephrology Consult Note ---
Date of Encounter: 10/14/18 Time of Encounter: 15:00 Assessment and Plan (1) Acute kidney injury Current Visit: Yes Status: Acute Elevated SCr in the setting of sepsis, diuretics, NSAIDs, vanco Agree with stopping all diuretics and NSAIDs Agree with checking vanco level, will consider changing Willc heck urine studies Will check CPK, uric acid levels (2) Congestive heart failure Current Visit: No Status: Acute Qualifiers: Heart failure type: diastolic Heart failure chronicity: acute on chronic Qualified Code(s): I50.33 - Acute on chronic diastolic (congestive) heart failure (3) Elevated troponin level Current Visit: Yes Status: Acute (4) Sepsis Current Visit: Yes Status: Acute Qualifiers: Sepsis type: sepsis due to unspecified organism Qualified Code(s): A41.9 - Sepsis, unspecified organism History of Present Illness - Reason for Consult Consult date: 10/14/18 Acute Kidney Injury - History of Present Illness 83 y o male with PMH of Past Med Surg Social Fam HX - Past Medical History Medical history: coronary artery disease, CVA, diabetes, hyperlipidemia, hypertension Additional medical history: prostate cancer w/ radiation, melanoma, retina surgery, CABG x3, strokes x2 Psychiatric history: no psych history - Past Surgical History Surgical History: coronary bypass (CABG) Additional surgical history: triple bypass, prostate cancer, 2 melenomas taken off back, 4 eye eye procedures, hernia repair, bladder surgery - Social History Smoking Status: Never smoker Smokeless Tobacco Status: No Alcohol use: none Drug use: none - Family History Mother Living Status: Hx Family Cardiac Disorders: Yes Father Living Status: Hx Family Cardiac Disorders: Yes Medications and Allergies Aspirin Enteric Coated [Aspirin EC] 325 mg PO DAILY 09/16/18 [History] Atenolol [Tenormin] 12.5 mg PO DAILY 09/16/18 [History] Glimepiride [Amaryl] 4 mg PO 0800 09/16/18 [History] Levothyroxine [Synthroid] 50 mcg PO 0630 09/16/18 [History] Meclizine [Antivert] 25 mg PO TID PRN 09/16/18 [History] Oxybutynin Chloride [Ditropan Xl] 10 mg PO DAILY 09/16/18 [History] Furosemide [Lasix] 20 mg PO BIDDIURETIC 30 Days #60 tablet 09/21/18 [Rx] Meloxicam 15 mg PO DAILY 10/09/18 [History] Rosuvastatin [Crestor] 20 mg PO HS 10/09/18 [History] Allergy/AdvReac Type Severity Reaction Status Date / Time metronidazole [From Flagyl] Allergy Anaphylaxis Verified 07/28/15 15:18 piperacillin [From Zosyn] Allergy Itching Verified 10/11/18 17:38 tazobactam [From Zosyn] Allergy Itching Verified 10/11/18 17:38 Exam - Vital Signs Vital signs: Initial Vital Signs Temp Pulse Resp BP Pulse Ox 99.6 F 90 22 140/74 96 10/09/18 10:52 10/09/18 10:52 10/09/18 10:52 10/09/18 10:52 10/09/18 10:52 Vital Signs - Last 8 Hours Temp Pulse Resp BP Pulse Ox 10/14/18 11:14 100.8 F H 98 18 109/65 94 10/14/18 10:17 18 134/64 94 10/14/18 08:45 98 Intake and Output 10/13/18 10/14/18 10/14/18 23:59 07:59 15:59 Intake Total 0 / 0 Output Total 380 / 380 480 / 480 Balance -370 / -370 -470 / -470 0 / 0 Intake: IV Fluids Merrem 1,000 MG In Water for inj. (sterile) 10 ML @ 120 mls/ hr IVP Q12H [facility] Rx#:[id number] Oral 0 / 0 Output: Catheter 380 / 380 480 / 480 Other: Meal NPO Percent of Meal Consumed 0% Weight 112.8 kg Blood Glucose* 191 118 116 Patient Weight 10/14/18 23:59 Weight 112.8 kg Results - Lab Results 10/14/18 05:48 10/14/18 05:48 Most recent lab results ABG pH 7.47 pH Units (7.32-7.45) H 10/14/18 13:46 ABG pCO2 30 mmHg (35-45) L 10/14/18 13:46 ABG pO2 68 mmHg (85-104) L 10/14/18 13:46 ABG HCO3 22 mEq/L (21-27) 10/14/18 13:46 ABG O2 Saturation 95 % (95-98) 10/14/18 13:46 Calcium 9.2 mg/dL (8.6-10.3) 10/14/18 05:48 Magnesium 1.7 mg/dL (1.6-2.6) 10/10/18 04:06 Consult Discharge Plan - Plan Referrals: Corky Estrada MD [Primary Care Provider] -
[2018-10-14 17:25] LABS: Uric Acid 7.8 mg/dL (2.3-7.6)
[2018-10-14] MEDS ORDERED: 0.9 % Sodium Chloride 1,000 ML IVC SCH (20:00)
[2018-10-14 20:14] LABS: Bilirubin,Urine Negative (Negative); Blood,Urine Large (Negative); Clarity,Urine Cloudy (Clear); Color,Urine Yellow (Yellow); Glucose,Urine (UA) Normal (Normal); Ketones,Urine Negative (Negative); Leukocyte Esterase,Urine Negative (Negative); Nitrite,Urine Negative (Negative); PH,Urine 5.5 pH Units (5.0-8.0); Protein,Urine 100 mg/dL (Neg-Trace); Specific Gravity,Urine 1.025 (1.010-1.025); Urobilinogen,Urine Normal (Normal)
[2018-10-14 20:19] LABS: Bacteria,Urine None Seen per hpf (None-Few); Hyaline Casts,Urine None Seen per lpf (None-Few); Squamous Epithelial Cell,Urine Moderate per lpf (None-Few)
[2018-10-14 20:28] LABS: Sodium, Urine 21.8 mEq/L
[2018-10-14 20:29] LABS: RBC,Urine 30-50 per hpf (0-3)
[2018-10-14] MEDS ORDERED: Acetaminophen IV 500 MG/50 ML INFUS..BTL IVPB ONE (22:30)
[2018-10-14 23:58] VITALS: BP 85/53
--- NOTE | 2018-10-15 02:49 | Pulmonology Progress Note ---
Date of Encounter: 10/14/18 Time of Encounter: 08:00 Assessment and Plan (1) Acute respiratory failure with hypoxia Current Visit: No Status: Acute Most likely due to aspiration pneumonia complicated by diastolic heart failure patient is stable . Patient has worsening serum creatinine today as well as with nephrology for further evaluation will hold off diuresis for now. Patient has some altered mental status and knees. Please do Septic and metabolic workup . Please to do blood gas analysis and panculture. (2) Pneumonia Current Visit: Yes Status: Suspected CT chest shows signs of of aspiration pneumonia we will get a full formal swallowing evaluation. Antibiotic choice according to infectious disease and de-escalation according to clinical response. Qualifiers: Pneumonia type: due to unspecified organism Laterality: bilateral Lung location: lower lobe of lung Qualified Code(s): J18.1 - Lobar pneumonia, unspecified organism (3) Diastolic CHF Current Visit: Yes Status: Acute Patient has worsening serum creatinine. Recommend to test visual nephrology patient is having worsening kidney injury patient will have poor prognosis Qualifiers: Heart failure chronicity: chronic Qualified Code(s): I50.32 - Chronic diastolic (congestive) heart failure Subjective Principal diagnosis: Aspiration pneumonia Interval history: Patient is here for an acute hypoxic respiratory secondary to aspiration pneumonia patient is slowly getting better. Patient is on broad-spectrum antibiotics. Patient having recurrent aspiration symptoms due to administration of wrong texture of food. Patient is little bit altered today recommended primary team to metabolic workup. Objective PUL Vital signs: Last Vital Signs Temp 101.6 F H 10/14/18 23:49 Pulse 93 10/15/18 00:29 Resp 40 10/14/18 23:49 BP 85/53 10/14/18 23:49 Pulse Ox 98 10/14/18 23:49 Auscultation: bilateral: diminished breath sounds (Diminished at the bases ) Cardiovascular: regular rate and rhythm Gastrointestinal: normoactive bowel sounds Extremities: no cyanosis Musculoskeletal: no deformities other (Patient is more drowsy has some altered mental status.) Results - Laboratory Findings CBC and BMP: 10/14/18 05:48 10/14/18 05:48 ABG ABG pH 7.47 pH Units (7.32-7.45) H 10/14/18 13:46 ABG pCO2 30 mmHg (35-45) L 10/14/18 13:46 ABG pO2 68 mmHg (85-104) L 10/14/18 13:46 ABG O2 Saturation 95 % (95-98) 10/14/18 13:46 PT/INR, D-dimer PT 16.3 Seconds (9.4-12.1) H 10/09/18 13:08 Abnormal lab findings: Abnormal lab results WBC 24.7 K/mcL (4.3-11.1) H 10/14/18 05:48 RBC 3.91 M/mcL (4.19-5.50) L 10/14/18 05:48 Hgb 12.4 g/dL (12.9-16.9) L 10/14/18 05:48 Hct 36.0 % (37.5-50.1) L 10/14/18 05:48 RDW 14.6 % (11.5-14.5) H 10/14/18 05:48 Band Neutrophils % 19.0 % (0-4) H 10/14/18 05:48 Metamyelocytes % 2.0 % (0) H 10/13/18 06:53 Myelocytes % 2.0 % (0) H 10/13/18 06:53 Neutrophils # 23.2 K/mcL (1.6-8.9) H 10/14/18 05:48 Lymphocytes # 0.3 K/mcL (0.6-4.6) L 10/14/18 05:48 Nucleated RBCs/100 WBC 0.1 /100 WBC (0) H 10/14/18 05:48 Toxic Granulation Present (Not Present) A 10/14/18 05:48 Toxic Vacuolation Present (Not Present) A 10/14/18 05:48 ESR 70 mm/hr (0-10) H 10/13/18 10:45 PT 16.3 Seconds (9.4-12.1) H 10/09/18 13:08 ABG pH 7.47 pH Units (7.32-7.45) H 10/14/18 13:46 ABG pCO2 30 mmHg (35-45) L 10/14/18 13:46 ABG pO2 68 mmHg (85-104) L 10/14/18 13:46 Sodium 128 mEq/L (136-145) L 10/14/18 05:48 Chloride 91 mEq/L (98-107) L 10/14/18 05:48 BUN 64 mg/dL (8-23) H 10/14/18 05:48 Creatinine 2.13 mg/dL (0.70-1.30) H 10/14/18 05:48 Est GFR ( Amer) 36 (> 60) L 10/14/18 05:48 Est GFR (Non-Af Amer) 30 (> 60) L 10/14/18 05:48 BUN/Creatinine Ratio 30 (6-26) H 10/14/18 05:48 Glucose 118 mg/dL (70-105) H 10/14/18 05:48 POC Glucose 137 mg/dL (70-99) H 10/14/18 20:33 Uric Acid 7.8 mg/dL (2.3-7.6) H 10/14/18 05:48 AST 59 Units/L (13-39) H 10/13/18 06:53 Alkaline Phosphatase 115 Units/L (34-104) H 10/13/18 06:53 Creatine Kinase 316 Units/L (30-223) H 10/14/18 05:48 Troponin I 7.01 ng/mL (< 0.04) H* 10/09/18 23:10 C-Reactive Protein 267 mg/L (Less than 10) H 10/12/18 15:47 B-Natriuretic Peptide 152 pg/mL (Less than 100) H 10/09/18 11:09 Serum Total Protein 5.3 g/dL (6.4-8.9) L 10/13/18 06:53 Albumin 2.9 g/dL (3.5-5.7) L 10/13/18 06:53 Amylase 21 Units/L (29-103) L 10/12/18 15:47 Urine Clarity Cloudy (Clear) A 10/14/18 17:44 Urine Protein 100 mg/dL (Neg-Trace) H 10/14/18 17:44 Urine Blood Large (Negative) H 10/14/18 17:44 Urine Microscopic RBC 30-50 per hpf (0-3) H 10/14/18 17:44 Urine Microscopic WBC 5-15 per hpf (0-3) H 10/14/18 17:44 Ur Squamous Epith Cells Moderate per lpf (None-Few) H 10/14/18 17:44 Vancomycin Trough 20 mcg/mL (5-10) H 10/14/18 17:17 - Microbiology Findings Microbiology Findings: Microbiology, Last 48 Hours 10/09/18 11:01 Blood Culture - Final Peripheral Venipuncture No growth. Final report. 10/09/18 11:09 Blood Culture - Final Peripheral Venipuncture No growth. Final report. - Clinical Findings Intake & Output: Intake & Output 10/14/18 10/14/18 10/15/18 15:59 23:59 07:59 Intake Total 0 / 0 60 / 60 Output Total 400 / 400 Balance 0 / 0 -340 / -340 Consult Discharge Plan - Plan Referrals: Corky Estrada MD [Primary Care Provider] -
[2018-10-15] MEDS ORDERED: *HR* Atropine Sulfate 1 MG/10 ML SYRINGE ONE (02:54)
--- NOTE | 2018-10-15 03:28 | Event Note ---
Date of Encounter: 10/15/18 Time of Encounter: 02:20 Called to patient's room for rapid response, patient had decreased blood pressure with decreased heart rate, down from where he had been about 1 hour prior. Stat dopamine and IV fluid bolus ordered. Patient went into PEA, initiated ACLS protocol. Patient Patient's was notified that chest compressions had been initiated. After 3 rounds of epinephrine and chest compressions, ROSC was achieved. Patient's heart rate remained bradycardic and 1 round of atropine was given. Central line was attempted and was unsuccessful. A left arm IO was placed for continued medication application. Patient again went into PEA and chest compressions started again. after 4 additional rounds of CPR and epinephrine, ROSC was not achieved, and was declared at 0315.
--- NOTE | 2018-10-15 20:29 | Discharge Summary ---
Orders not resulted at time of discharge: Pending orders 10/12/18 15:47 Culture,Blood [BC] Stat Date of Encounter: 10/16/18 Time of Encounter: 07:00 - Discharge Diagnosis (1) Congestive heart failure Priority: Primary Status: Acute Qualifiers: Heart failure type: diastolic Heart failure chronicity: acute on chronic Qualified Code(s): I50.33 - Acute on chronic diastolic (congestive) heart failure (2) Elevated troponin level Priority: Primary Status: Acute (3) DVT prophylaxis Priority: Secondary Status: Acute (4) Hypertension Priority: Secondary Status: Chronic Qualifiers: Hypertension type: essential hypertension Qualified Code(s): I10 - Essential (primary) hypertension (5) Diabetes mellitus Priority: Secondary Status: Chronic Qualifiers: Diabetes mellitus type: type 2 Diabetes mellitus termite treater helper insulin use: without half-way use Diabetes mellitus complication status: with unspecified complications Qualified Code(s): 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 (6) Acute respiratory failure with hypoxia Priority: Primary Status: Acute (7) Pneumonia Priority: Primary Status: Suspected Qualifiers: Pneumonia type: due to unspecified organism Laterality: bilateral Lung location: lower lobe of lung Qualified Code(s): J18.1 - Lobar pneumonia, unspecified organism (8) Sepsis Priority: Primary Status: Acute Qualifiers: Sepsis type: sepsis due to unspecified organism Qualified Code(s): A41.9 - Sepsis, unspecified organism (9) Urinary retention Priority: Secondary Status: Acute (10) Hyponatremia Priority: Primary Status: Acute (11) Encephalopathy Priority: Secondary Status: Acute (12) Goals of care, counseling/discussion Priority: Secondary Status: Acute (13) NSTEMI (non-ST elevated myocardial infarction) Priority: Primary Status: Acute (14) Prostate cancer Priority: Secondary Status: Acute (15) Rash Priority: Secondary Status: Acute (16) Acute kidney injury Priority: Secondary Status: Acute Hospital course: Mr. Douglas is a 83 year old male with PMHx of CAD s/p CABG, h/o CVA, diastolic CHF, prostate cacner, DM, HLD, HTN who was recently discharge came in with fall, cough and fever which signs of CHF exacerbation and possible pneumonia with sepsis. He also had elevated troponins. He was started on broad spectrum antibiotics, heparin drip and lasix. He developed skin rash after receiving zosyn. Antibiotics were changed. He was seen by cardiology and he refused LHC. He developed urinary retention and was seen by urology and had lin catheter placed to f/u as outpatient. Infectious disease and pulmonology were consulted. Patient likely had bilateral pneumonia, Blood culture, urine antigen remained negative. Patient had minimal improvement. He developed Matias and was given fluids which worsned his CHF. Nephrology was consulted. His skin rash did not resolve and dermatology was consulted. Palliativye care consult was obtained early as he refused needed LHC. Patient wanted to be full code however which he expressed when he was alert and oriented which was later affirmed by . He became more lethargic. He continued to have fluid overload but couldn't be diurese given worsening renal failure. Yesterday overnight rapid response was called due to decreased BP and HR. He was started on dopamine and IVF. He had PEA arrest and had resuscitation with ROSC. He again went into PEA arrest but coudnt be revived this time. Family was informed and updated during the ordeal. Patient was pronounced at 315 on 10/15/18. - Time Spent with Patient Total time spent providing and/or coordinating discharge services: - Discharge Medications Prescriptions: No Action Aspirin Enteric Coated [Aspirin EC] 325 mg PO DAILY Meclizine [Antivert] 25 mg PO TID PRN PRN Reason: Dizziness Oxybutynin Chloride [Ditropan Xl] 10 mg PO DAILY Levothyroxine [Synthroid] 50 mcg PO 0630 Atenolol [Tenormin] 12.5 mg PO DAILY Glimepiride [Amaryl] 4 mg PO 0800 Furosemide [Lasix] 20 mg PO BIDDIURETIC 30 Days #60 tablet Meloxicam 15 mg PO DAILY Rosuvastatin [Crestor] 20 mg PO HS Home Medications: Aspirin Enteric Coated [Aspirin EC] 325 mg PO DAILY 09/16/18 [History] Atenolol [Tenormin] 12.5 mg PO DAILY 09/16/18 [History] Glimepiride [Amaryl] 4 mg PO 0800 09/16/18 [History] Levothyroxine [Synthroid] 50 mcg PO 0630 09/16/18 [History] Meclizine [Antivert] 25 mg PO TID PRN 09/16/18 [History] Oxybutynin Chloride [Ditropan Xl] 10 mg PO DAILY 09/16/18 [History] Furosemide [Lasix] 20 mg PO BIDDIURETIC 30 Days #60 tablet 09/21/18 [Rx] Meloxicam 15 mg PO DAILY 10/09/18 [History] Rosuvastatin [Crestor] 20 mg PO HS 10/09/18 [History] Allergies/Adverse Reactions: Allergy/AdvReac Type Severity Reaction Status Date / Time metronidazole [From Flagyl] Allergy Anaphylaxis Verified 07/28/15 15:18 piperacillin [From Zosyn] Allergy Itching Verified 10/11/18 17:38 tazobactam [From Zosyn] Allergy Itching Verified 10/11/18 17:38 Date of admission: 10/09/18 14:36 Primary care physician: Corky Estrada MD Consults: 10/09/18 12:33 Consult to Cardiology [CONS] Stat Comment: Consulting Provider: Cardiology Janell Reason for Consult: NSTEMI, elevated trop, CHF. Spoke withDr. King Time Notified: 12:33 Call Completed: Yes 10/10/18 11:05 Consult to Urology [CONS] Routine Consulting Provider: Urology Janell Reason for Consult: Urinary retention. History of prostate cancer S/P radiation. Call Completed: Yes 10/11/18 08:15 Consult to Nurse Navigator [CONS] Routine Comment: CHF 10/11/18 10:03 Consult to Palliative Care [CONS] Routine Comment: Consulting Provider: Palliative Care Janell Reason for Consult: For goal of care Call Completed: Yes 10/11/18 10:04 Consult to Palliative Care [CONS] Routine Comment: Consulting Provider: Palliative Care Janell Reason for Consult: code status change Call Completed: Yes 10/11/18 16:01 Consult to Occupational Therapy [CONS] Routine Comment: Evaluate, develop and implement POC Reason for Consult: discharge planning/weakness. Does patient have active BEDREST order?: No Is patient medically & hemodynamically stable?: Yes Consult to Physical Therapy [CONS] Routine Comment: Evaluate, develop and implement POC Reason for Consult: discharge planning/weakness. Does patient have active BEDREST order?: No Is patient medically & hemodynamically stable?: Yes 10/12/18 07:11 Consult to Infectious Diseases [CONS] Routine Consulting Provider: Infectious Disease Janell Reason for Consult: Sepsis, Pneumonia?, needs recommendation for abx choice Call Completed: Yes Consult to Pulmonology [CONS] Routine Consulting Provider: [facility] [place] Reason for Consult: Pneumonia? High fever with severe leukocytosis Call Completed: Yes 10/14/18 14:33 Consult to Nephrology [CONS] Routine Consulting Provider: [facility] [place]/[facility]/LAURIE/[place] Reason for Consult: MATIAS Call Completed: Yes 10/14/18 18:18 Consult to Dermatology [CONS] Routine Consulting Provider: D[facility]atology [place] Reason for Consult: drug rash Call Completed: Yes - Constitutional Vitals: Temp Pulse Resp BP Pulse Ox 101.6 F H 93 40 85/53 98 10/14/18 23:49 10/15/18 00:29 10/14/18 23:49 10/14/18 23:49 10/14/18 23:49 Exam: na - Patient Status Disposition: - Discharge Instructions Follow Up With: Corky Estrada MD [Primary Care Provider] -
== END 2018-10-15 05:50 | disposition expired | DRG 871 ==
LOC: 2NNU 10:41 → EMEROOARM 10:41 → SUATTDRO 14:36 → 2NNU 15:00
PROVIDERS: ADMIT Internal Medicine; ATTEND Internal Medicine